=== PATIENT | female | born 1975 | race Caucasian/White ===

== ENCOUNTER → 2020-08-28 | Outpatient (CLI) | payer OTHER ==
--- NOTE | 2020-09-04 13:17 | MM ---
Reason for exam: screening (asymptomatic). Last mammogram was performed 4 years and 9 months ago. History: Patient is postmenopausal. Taking estrogen for 6 years beginning at age 38. Physical Findings: A clinical breast exam by your physician is recommended on an annual basis and results should be correlated with mammographic findings. MG 3D Screening Mammo W/Cad Bilateral CC and MLO view(s) were taken. Prior study comparison: November 19, 2015, mammogram, performed at [place]. The breast tissue is heterogeneously dense. This may lower the sensitivity of mammography. There is chronic nodularity in the right breast and new nodularity may be related to technique. ASSESSMENT: Incomplete: need additional imaging evaluation, BI-RAD 0 RECOMMENDATION: Ultrasound of both breasts. [facility] will attempt to contact patient to return for ultrasound.
== END | disposition home or self-care (01) ==
LOC: RADMAMWWP 10:09
DX: Z12.31 Encounter for screening mammogram for malignant neoplasm of breast (principal); Z78.0 Asymptomatic menopausal state
CPT/HCPCS: 77063; 77067

== ENCOUNTER → 2020-09-25 | Outpatient (CLI) | payer OTHER ==
--- NOTE | 2020-09-25 09:46 | USB ---
Reason for exam: additional evaluation requested from abnormal screening. History: Patient is postmenopausal. Taking estrogen for 6 years beginning at age 38. Physical Findings: Nurse did not find any significant physical abnormalities on exam. US Breast Workup ILA Right complete breast ultrasound includes all four quadrants, the retroareolar region and axilla. Finding demonstrates a 4 x 3 x 3mm oval, cystic lesion at 7 o'clock, a 6 x 4 x 5mm lobular, cystic lesion with septation at 8 o'clock, complex versus cluster of cysts, a 8 x 3 x 5mm lobular, cystic lesion with septation at 9 o'clock, complex versus cluster of cysts and a 4 x 4 x 3mm oval, cystic lesion at 9 o'clock. Left complete breast ultrasound includes all four quadrants, the retroareolar region and axilla. Finding demonstrates a 6 x 4 x 6mm oval, cystic lesion at 3 o'clock. These results were verbally communicated with the patient and result sheet given to the patient on 09/25/20. ASSESSMENT: Probably benign, BI-RAD 3 RECOMMENDATION: Ultrasound and follow-up diagnostic mammogram of both breasts in 6 months. (3D)
== END | disposition home or self-care (01) ==
LOC: RADUSWWP 08:23
PROVIDERS: ATTEND Family Medicine
DX: N60.01 Solitary cyst of right breast (principal); N60.02 Solitary cyst of left breast; Z78.0 Asymptomatic menopausal state

== ENCOUNTER 2020-10-31 16:21 | Observation (INO) | payer OTHER ==
[2020-10-31] MEDS ORDERED: NITROGLYCERIN OINT 1 INCH/GM PACKET TOPICAL STA (16:39)
[2020-10-31] MEDS ORDERED: ASPIRIN 81 MG PO STA (16:39)
--- NOTE | 2020-10-31 16:41 | ED ---
General Adult HPI - General Chief complaint: Recheck/Abnormal Lab/Rx Stated complaint: fast heart rate, high BP Time Seen by Provider: 10/31/20 16:32 Source: patient, RN notes reviewed Mode of arrival: wheelchair Limitations: no limitations - History of Present Illness Initial comments: Patient is a pleasant 45-year-old female presenting to the emergency Department with complaints of chest discomfort and high blood pressure. Onset of symptoms was close to week or 2 ago however more severe the last couple of days. Blood pressure has been as high as 160/110. Patient has had some indigestion or pressure in her chest. No dyspnea, nausea, or diaphoresis. No leg pain or leg swelling. Patient does have history of hypertension. - Related Data Allergies Allergy/AdvReac Type Severity Reaction Status Date / Time Sulfa (Sulfonamide Allergy Rash/Hives Verified 10/31/20 16:22 Antibiotics) Review of Systems ROS Statement: Those systems with pertinent positive or pertinent negative responses have been documented in the HPI. ROS Other: All systems not noted in ROS Statement are negative. Constitutional: Denies: fever Eyes: Denies: eye pain ENT: Denies: ear pain Respiratory: Denies: cough Cardiovascular: Reports: chest pain Endocrine: Denies: fatigue Gastrointestinal: Denies: abdominal pain Genitourinary: Denies: dysuria Musculoskeletal: Denies: back pain Skin: Denies: rash Neurological: Denies: weakness Past Medical History Past Medical History: Hypertension History of Any Multi-Drug Resistant Organisms: None Reported Past Surgical History: Hysterectomy Past Psychological History: Anxiety Smoking Status: Current every day smoker Past Alcohol Use History: None Reported Past Drug Use History: Marijuana General Exam Limitations: no limitations General appearance: alert, in no apparent distress Head exam: Present: normocephalic Eye exam: Present: normal appearance Neck exam: Present: normal inspection Respiratory exam: Present: normal lung sounds bilaterally Cardiovascular Exam: Present: regular rate, normal rhythm Expanded Peripheral pulses: 2+: Radial (R), Radial (L), Dorsalis Pedis (R), Dorsalis Pedis (L) GI/Abdominal exam: Present: soft. Absent: tenderness Extremities exam: Present: normal inspection. Absent: pedal edema, calf tenderness Neurological exam: Present: alert Psychiatric exam: Present: normal affect, normal mood Skin exam: Present: normal color Course Vital Signs 10/31/20 16:22 Temperature 98.4 F Pulse Rate 88 Respiratory 16 Rate Blood Pressure 155/108 O2 Sat by Pulse 99 Oximetry - Reevaluation(s) Reevaluation #1: 10/31/20 17:17 Repeat EKG shows normal sinus rhythm with a rate of 82. CT 150. QRS 74. QT 374. QTC were 36. Normal axis. Normal QRS. No acute ST change. EKG Findings - EKG Comments: EKG Findings:: No sinus rhythm with rate of 85. CT 152. QRS 84. QT 384. QTC 456. Normal axis. Normal QRS. No acute ST change. Medical Decision Making - Medical Decision Making Patient reevaluated and resting comfortably in bed. Patient and family updated on results and plan. [facility] Data Result diagrams: 10/31/20 17:02 10/31/20 17:02 Lab Results 10/31/20 10/31/20 10/31/20 Range/Units 17:02 17:02 17:02 WBC 7.7 (3.8-10.6) k/uL RBC 5.44 H (3.80-5.40) m/uL Hgb 16.4 H (11.4-16.0) gm/dL Hct 45.8 (34.0-46.0) % MCV 84.2 (80.0-100.0) fL MCH 30.2 (25.0-35.0) pg MCHC 35.9 (31.0-37.0) g/dL RDW 12.8 (11.5-15.5) % Plt Count 405 (150-450) k/uL MPV 7.4 Neutrophils % 54 % Lymphocytes % 34 % Monocytes % 6 % Eosinophils % 3 % Basophils % 1 % Neutrophils # 4.2 (1.3-7.7) k/uL Lymphocytes # 2.6 (1.0-4.8) k/uL Monocytes # 0.5 (0-1.0) k/uL Eosinophils # 0.2 (0-0.7) k/uL Basophils # 0.1 (0-0.2) k/uL PT 10.2 (9.0-12.0) sec INR 0.9 (<1.2) APTT 23.4 (22.0-30.0) sec Sodium 139 (137-145) mmol/L Potassium 3.5 (3.5-5.1) mmol/L Chloride 102 (98-107) mmol/L Carbon Dioxide 27 (22-30) mmol/L Anion Gap 10 mmol/L BUN 14 (7-17) mg/dL Creatinine 0.61 (0.52-1.04) mg/dL Est GFR (CKD-EPI)AfAm >90 (>60 ml/min/1.73 sqM) Est GFR (CKD-EPI)NonAf >90 (>60 ml/min/1.73 sqM) Glucose 117 H (74-99) mg/dL Calcium 10.6 H (8.4-10.2) mg/dL Magnesium 1.9 (1.6-2.3) mg/dL Total Bilirubin 0.4 (0.2-1.3) mg/dL AST 42 H (14-36) U/L ALT 25 (4-34) U/L Alkaline Phosphatase 75 (38-126) U/L Troponin I (0.000-0.034) ng/mL Total Protein 8.0 (6.3-8.2) g/dL Albumin 4.8 (3.5-5.0) g/dL 10/31/20 Range/Units 17:02 WBC (3.8-10.6) k/uL RBC (3.80-5.40) m/uL Hgb (11.4-16.0) gm/dL Hct (34.0-46.0) % MCV (80.0-100.0) fL MCH (25.0-35.0) pg MCHC (31.0-37.0) g/dL RDW (11.5-15.5) % Plt Count (150-450) k/uL MPV Neutrophils % % Lymphocytes % % Monocytes % % Eosinophils % % Basophils % % Neutrophils # (1.3-7.7) k/uL Lymphocytes # (1.0-4.8) k/uL Monocytes # (0-1.0) k/uL Eosinophils # (0-0.7) k/uL Basophils # (0-0.2) k/uL PT (9.0-12.0) sec INR (<1.2) APTT (22.0-30.0) sec Sodium (137-145) mmol/L Potassium (3.5-5.1) mmol/L Chloride (98-107) mmol/L Carbon Dioxide (22-30) mmol/L Anion Gap mmol/L BUN (7-17) mg/dL Creatinine (0.52-1.04) mg/dL Est GFR (CKD-EPI)AfAm (>60 ml/min/1.73 sqM) Est GFR (CKD-EPI)NonAf (>60 ml/min/1.73 sqM) Glucose (74-99) mg/dL Calcium (8.4-10.2) mg/dL Magnesium (1.6-2.3) mg/dL Total Bilirubin (0.2-1.3) mg/dL AST (14-36) U/L ALT (4-34) U/L Alkaline Phosphatase (38-126) U/L Troponin I <0.012 (0.000-0.034) ng/mL Total Protein (6.3-8.2) g/dL Albumin (3.5-5.0) g/dL - Radiology Data Radiology results: image reviewed Disposition Clinical Impression: Chest pain Disposition: ADMITTED IP TO THIS HOSP Is patient prescribed a controlled substance at d/c from ED?: No Referrals: [facility] [Primary Care Provider] - 1-2 days Decision Time: 18:06
[2020-10-31 17:18] LABS: Basophils # (A) 0.1 k/uL (0-0.2); Basophils % (A) 1 %; Eosinophils # (A) 0.2 k/uL (0-0.7); Eosinophils % (A) 3 %; HCT 45.8 % (34.0-46.0); HGB 16.4 gm/dL (11.4-16.0); Lymphocytes # (A) 2.6 k/uL (1.0-4.8); Lymphocytes % (A) 34 %; MCH 30.2 pg (25.0-35.0); MCHC 35.9 g/dL (31.0-37.0); MCV 84.2 fL (80.0-100.0); Mean Platelet Volume 7.4; Monocytes # (A) 0.5 k/uL (0-1.0); Monocytes % (A) 6 %; Neutrophils # (A) 4.2 k/uL (1.3-7.7); Neutrophils % (A) 54 %; Platelet Count 405 k/uL (150-450); RBC 5.44 m/uL (3.80-5.40); RDW 12.8 % (11.5-15.5); WBC 7.7 k/uL (3.8-10.6)
[2020-10-31 17:29] LABS: ALT 25 U/L (4-34); AST 42 U/L (14-36); African American GFR (CKD) >90 (>60 ml/min/1.73 sqM); Albumin 4.8 g/dL (3.5-5.0); Alkaline Phosphatase 75 U/L (38-126); Anion Gap 10 mmol/L; Blood Urea Nitrogen 14 mg/dL (7-17); Calcium 10.6 mg/dL (8.4-10.2); Carbon Dioxide 27 mmol/L (22-30); Chloride 102 mmol/L (98-107); Glucose 117 mg/dL (74-99); Magnesium 1.9 mg/dL (1.6-2.3); Non-African American GFR(CKD) >90 (>60 ml/min/1.73 sqM); Potassium 3.5 mmol/L (3.5-5.1); Sodium 139 mmol/L (137-145); Total Bilirubin 0.4 mg/dL (0.2-1.3)
[2020-10-31 17:35] LABS: INR 0.9 (<1.2); Partial Thromboplastin Time 23.4 sec (22.0-30.0); Prothrombin Time 10.2 sec (9.0-12.0)
[2020-10-31] MEDS ORDERED: LORazepam 2 MG/ML INJ IV STA (18:06)
[2020-10-31] MEDS ORDERED: NITROGLYCERIN SL TABS 0.4 MG TAB SUBLINGUAL PRN (18:07)
[2020-10-31] MEDS ORDERED: clonazePAM 1 MG TAB PO PRN (20:39)
--- NOTE | 2020-10-31 20:39 | XR ---
EXAMINATION TYPE: XR chest 2V DATE OF EXAM: 10/31/2020 COMPARISON: None HISTORY: 45-year-old female with chest pain and hypertension TECHNIQUE: PA and lateral views FINDINGS: The cardiomediastinal silhouette, aorta, and pulmonary vasculature are within normal limits. Lungs an d pleural spaces are clear. Bilateral nipple bars. IMPRESSION: No acute cardiopulmonary process.
[2020-10-31] MEDS ORDERED: LORATADINE 10 MG TAB PO SCH (21:00)
[2020-10-31] MEDS ORDERED: VENLAFAXINE HCL ER 75 MG CAP PO SCH (21:00)
[2020-10-31] MEDS: PANTOPRAZOLE 40 MG TABLET PO SCH (21:16)
[2020-11-01] MEDS: NITROGLYCERIN OINT 1 INCH/GM PACKET TOPICAL SCH ×3 (02:36→15:12)
--- NOTE | 2020-11-01 08:12 | P.CRDCN ---
History of Present Illness Consult date: 11/01/20 Requesting physician: Bianca Crawley Reason for Consult (text): Chest Pain, HTN Chief complaint: headache, fingers tingling, chest discomfort, elevated b/p History of present illness: Supposedly 45-year-old female patient with a past history of smoking about half to three quarters of a pack of cigarettes a day, hypertension, hyperlipidemia, gestational diabetes, and medical marijuana use. She also has a significant family history of premature CAD with her mother who at the age of 49 from an NC and her father who had his first NC in his 40s and subsequent CABG. She presented to the emergency department with complaints of recurrent headache, tingling in her fingers and a burning sensation in her chest as well as elevated blood pressure occurring over the past few days. She does have a history of anxiety but does not feel that these episodes feel like her usual panic attacks. She denies alcohol use. She verbalizes following a low sodium diet. She is reasonably active although does not do any formal exercise. She has also been having some palpitations which she typically only has if she takes a decongestant or consumes too much caffeine. She describes these as a skipping heartbeat. They have become more frequent over the last few days. Cardiac enzymes have been negative 3. EKG shows no evidence of ischemia. Chest x-ray showed no acute process. Renal function is normal. She is maintaining sinus mechanism on the monitor. Blood pressure remains elevated. She's been afebrile. Upon examination she is resting comfortably in bed with no current c omplaints. She's not noticed any edema, orthopnea or PND at home. Past Medical History Past Medical History: Hypertension History of Any Multi-Drug Resistant Organisms: None Reported Past Surgical History: Hysterectomy Past Anesthesia/Blood Transfusion Reactions: No Reported Reaction Past Psychological History: Anxiety Smoking Status: Current every day smoker Past Alcohol Use History: None Reported Past Drug Use History: Marijuana Medications and Allergies Home Medications Medication Instructions Recorded Confirmed Type Biotin 10,000 mcg PO DAILY 10/31/20 10/31/20 History Cholecalciferol [Vitamin D3 (25 50 mcg PO DAILY 10/31/20 10/31/20 History Mcg = 1000 Iu)] Estradiol [Estrace] 1 mg PO DAILY 10/31/20 10/31/20 History Loratadine 10 mg PO HS 10/31/20 10/31/20 History Multivitamins, Thera [Multivitamin 1 tab PO DAILY 10/31/20 10/31/20 History (formulary)] [place]-3 Fatty Acids/Fish Oil [Fish 1 cap PO DAILY 10/31/20 10/31/20 History Oil 1,000 mg Softgel] Omeprazole 20 mg PO BID 10/31/20 10/31/20 History Potassium Chloride ER [K-Dur 10] 10 meq PO DAILY 10/31/20 10/31/20 History Venlafaxine HCl ER [Effexor Xr] 75 mg PO HS 10/31/20 10/31/20 History hydroCHLOROthiazide [Hydrodiuril] 50 mg PO DAILY 10/31/20 10/31/20 History Allergies Allergy/AdvReac Type Severity Reaction Status Date / Time Sulfa (Sulfonamide Allergy Rash/Hives Verified 10/31/20 19:32 Antibiotics) Physical Exam Vitals: Vital Signs Temp Pulse Pulse Resp BP BP Pulse Ox 11/01/20 02:00 98.0 F 78 18 148/81 100 10/31/20 20:00 98.4 F 95 17 155/83 96 10/31/20 18:37 79 18 157/98 99 10/31/20 18:07 99 10/31/20 16:22 98.4 F 88 16 155/108 99 Intake and Output 10/31/20 11/01/20 11/01/20 22:59 06:59 14:59 Other: # Voids 1 1 Weight 72.575 kg PHYSICAL EXAMINATION: This is a 45-year-old female in no apparent distress at the time of my examination. VITAL SIGNS: Blood pressure 151/81, heart rate 84, respirations 16, temp 98.1F. Patient is 99 % on room air. HEENT: Head is atraumatic, normocephalic. Pupils are equal, round. Sclerae anicteric. Conjunctivae are clear. Mucous membranes of the mouth are moist. Neck is supple. There is no elevated jugular venous pressure. No carotid bruit is heard. CHEST EXAMINATION: Clear to auscultation bilaterally. No wheezes rales or rhonchi. Respirations even and nonlabored. HEART EXAMINATION: Heart regular, positive S1 and S2. No S3. No S4. No clicks, rubs or murmurs. ABDOMEN: Soft, nontender. Bowel sounds are heard. No organomegaly noted. EXTREMITIES: 2+ peripheral pulses with no evidence of peripheral edema and no calf tenderness noted. NEUROLOGIC EXAMINATION: Patient is awake, alert and oriented x3. Results 10/31/20 17:02 10/31/20 17:02 Cardiac Enzymes 10/31/20 10/31/20 10/31/20 Range/Units 17:02 17:02 20:18 AST 42 H (14-36) U/L Troponin I <0.012 <0.012 (0.000-0.034) ng/mL 10/31/20 Range/Units 22:45 AST (14-36) U/L Troponin I <0.012 (0.000-0.034) ng/mL Coagulation 10/31/20 Range/Units 17:02 PT 10.2 (9.0-12.0) sec APTT 23.4 (22.0-30.0) sec CBC 10/31/20 Range/Units 17:02 WBC 7.7 (3.8-10.6) k/uL RBC 5.44 H (3.80-5.40) m/uL Hgb 16.4 H (11.4-16.0) gm/dL Hct 45.8 (34.0-46.0) % Plt Count 405 (150-450) k/uL Comprehensive Metabolic Panel 10/31/20 Range/Units 17:02 Sodium 139 (137-145) mmol/L Potassium 3.5 (3.5-5.1) mmol/L Chloride 102 (98-107) mmol/L Carbon Dioxide 27 (22-30) mmol/L BUN 14 (7-17) mg/dL Creatinine 0.61 (0.52-1.04) mg/dL Glucose 117 H (74-99) mg/dL Calcium 10.6 H (8.4-10.2) mg/dL AST 42 H (14-36) U/L ALT 25 (4-34) U/L Alkaline Phosphatase 75 (38-126) U/L Total Protein 8.0 (6.3-8.2) g/dL Albumin 4.8 (3.5-5.0) g/dL Current Medications Generic Name Dose Route Start Last Admin Trade Name Freq PRN Reason Stop Dose Admin Aspirin 325 mg 07/03/21 09:00 Aspirin 325 Mg Tab PO DAILY JUAN M Cholecalciferol 50 mcg 11/01/20 09:00 Cholecalciferol 25 Mcg (1000 Iu) Tablet PO DAILY JUAN M Clonazepam 1 mg 10/31/20 20:39 10/31/20 21:14 Clonazepam 1 Mg Tab PO 1 mg TID PRN Administration Agitation or Acute Anxiety Estradiol 1 mg 11/01/20 09:00 Estradiol 0.5 Mg Tab PO DAILY JUAN M Hydrochlorothiazide 50 mg 11/01/20 09:00 Hydrochlorothiazide 50 Mg Tab PO DAILY JUAN M Loratadine 10 mg 10/31/20 21:00 10/31/20 21:14 Loratadine 10 Mg Tab PO 10 mg HS JUAN M Administration Multivitamins 1 each 11/01/20 09:00 Multivitamins, Thera 1 Each Tab PO DAILY JUAN M Nitroglycerin 0.4 mg 10/31/20 18:07 Nitroglycerin Sl Tabs 0.4 Mg Tab SUBLINGUAL Q5M PRN Chest Pain Nitroglycerin 1 inch 11/01/20 00:00 11/01/20 05:22 Nitroglycerin Oint 1 Inch/Gm Packet TOPICAL Not Given Q6HR JUAN M Pantoprazole Sodium 40 mg 10/31/20 21:00 10/31/20 21:16 Pantoprazole 40 Mg Tablet PO 40 mg AC-BID JUAN M Administration Potassium Chloride 10 meq 11/01/20 09:00 Potassium Chloride Er 10 Meq Tab.Er.Prt PO DAILY JUAN M Venlafaxine HCl 75 mg 10/31/20 21:00 10/31/20 21:14 Venlafaxine Hcl Er 75 Mg Cap PO 75 mg HS JUAN M Administration Intake and Output 10/31/20 11/01/20 11/01/20 22:59 06:59 14:59 Other: # Voids 1 1 Weight 72.575 kg 10/31/20 17:02 10/31/20 17:02 EKG Interpretations (text) Sinus rhythm Assessment and Plan Assessment: #1 symptoms of recurrent chest discomfort, an acute coronary event has been ruled out, troponins negative 3, EKG shows no evidence of ischemia. #2 hypertension, uncontrolled #3 nicotine dependence #4 gestational diabetes #5 hyperlipidemia, not currently on medications, this is being monitored by her PCP #5 marijuana use Plan: From cardiology's perspective and acute coronary event has been ruled out. We will obtain a 2-D echo with Doppler to assess cardiac structure and function. We will add metoprolol 25 mg by mouth twice a day. Discussed importance of smoking cessation. If there is no evidence of significant valvular abnormalitie s or segmental wall motion abnormalities patient may be discharged home and follow-up with an outpatient stress echo and office visit. [employer] note has been reviewed, I agree with a documented findings and plan of care. Patient was seen and examined.
[2020-11-01] MEDS: PANTOPRAZOLE 40 MG TABLET PO SCH (08:21)
[2020-11-01] MEDS ORDERED: MULTIVITAMINS, THERA 1 EACH TAB PO SCH (09:00)
[2020-11-01] MEDS ORDERED: NON FORMULARY DRUG (Biotin [Biotin] 10,000 MCG Capsule) PO SCH (09:00)
[2020-11-01] MEDS ORDERED: METOPROLOL TARTRATE 25 MG TAB PO SCH (09:00)
[2020-11-01] MEDS ORDERED: NON FORMULARY DRUG (Omega-3 Fatty Acids/Fish Oil [Fish Oil 1,000 Mg Softgel] 1 EACH Capsul PO SCH (09:00)
[2020-11-01] MEDS ORDERED: ASPIRIN 325 MG TAB PO SCH (09:00)
[2020-11-01] MEDS ORDERED: POTASSIUM CHLORIDE ER 10 MEQ TAB.ER.PRT PO SCH (09:00)
[2020-11-01] MEDS ORDERED: CHOLECALCIFEROL 25 MCG (1000 IU) TABLET PO SCH (09:00)
[2020-11-01 10:20] LABS: Chol/HDL Ratio 3.24; LDL Cholesterol,Calculated 171.6 mg/dL (0.0-131.0); VLDL Calculation 21.4 mg/dL (5.00-40.00)
--- NOTE | 2020-11-01 12:11 | ECHOF ---
Referral Reason:chest pain, HTN MEASUREMENTS -------- HEIGHT: 157.5 cm WEIGHT: 72.6 kg BP: 151/81 RVIDd: 2.6 cm (< 3.3) IVSd: 1.0 cm (0.6 - 1.1) LVIDd: 3.9 cm (3.9 - 5.3) LVPWd: 0.9 cm (0.6 - 1.1) IVSs: 1.4 cm LVIDs: 2.4 cm LVPWs: 1.3 cm LA Diam: 2.8 cm (2.7 - 3.8) LAESV Index (A-L): 15.81 ml/m Ao Diam: 2.8 cm (2.0 - 3.7) AV Cusp: 1.9 cm (1.5 - 2.6) MV EXCURSION: 18.612 mm (> 18.000) MV EF SLOPE: 77 mm/s (70 - 150) EPSS: 0.3 cm MV E Tashi: 0.78 m/s MV DecT: 191 ms MV A Tashi: 0.66 m/s MV E/A Ratio: 1.18 FINDINGS -------- Sinus rhythm. This was a technically good study. The left ventricular size is normal. Left ventricular wall thickness is normal. Overall left vent ricular systolic function is normal with, an EF between 55 - 60 %. The diastolic filling pattern is normal for the age of the patient 8.35. The right ventricle is normal in size. Normal LA size by volume 22+/-6 ml/m2. The right atrial size is normal. Interatrial and interventricular septum intact. The aortic valve is trileaflet, and appears structurally normal. No aortic stenosis or regurgitation. The mitral valve is normal. There is trace mitral regurgitation. The tricuspid valve appears structurally normal. Trace tricuspid regurgitation present. Unable to estimate RVSP due to inadequate TR jet spectral doppler profile. There is no pulmonic regurgitation present. The aortic root size is normal. Normal inferior vena cava with normal inspiratory collapse consistent with estimated right atrial pre ssure of 5 mmHg. There is no pericardial effusion. CONCLUSIONS -------- 1. Left ventricular wall thickness is normal. 2. Overall left ventricular systolic function is normal with, an EF between 55 - 60 %. 3. Normal LA size by volume 22+/-6 ml/m2. 4. The aortic valve is trileaflet, and appears structurally normal. No aortic stenosis or regurgitati on. 5. There is trace mitral regurgitation. 6. Trace tricuspid regurgitation present. 7. There is no pericardial effusion. STERILIZATION TECH: Mandy Pa RDCS
[2020-11-01 14:51] VITALS: BP 143/82; PULSE 82; RESP 16; TEMP 97.8
--- NOTE | 2020-11-01 15:01 | P.HPIM ---
History of Present Illness H&P Date: 11/01/20 Chief Complaint: Chest discomfort, palpitations, increased blood pressure Ms. Taylor is a 44-year-old female with a past medical history of hypertension, dyslipidemia, gestational diabetes and medical marijuana coming in with a chief complaint of right-sided chest discomfort and palpitations and increased blood pressure. Patient states that she was in her yard picking up weeds yesterday and she started to have some chest discomfort, which is mostly on the right side of the chest. Then she checked her blood pressure which was found to be high at 1 60 x 1 10 and she was worried about it and came into the hospital for further evaluation. Patient denied having any difficulty in breathing, nausea or associated diaphoresis with this chest pain. She denied having any orthopnea PND or lower extremity swelling. She mentions about having a weird feeling in her upper extremities and lower extremities and her blood pressure was high. Patient denied having any loss of consciousness. She denied having any weakness of her extremities, no speech abnormalities, no blurring of her vision or headaches. Patient has history of anxiety and does feel that these episodes are like her panic attacks. She states that she took her blood pressure medications. Patient has significant history of smoking about half to three quarters of pack of cigarettes a day. She also has family history of coronary artery disease, mother at age of 49 from [place] and father had first [place] in his 40s and subsequently had coronary artery bypass grafting. In the ER, at the time of admission her blood pressure was 155/108, heart rate 88, respiratory rate 16, saturating 99%, temperature 98.4. She had an EKG done showing normal sinus rhythm with 82 bpm. She had labs done showing white count of 7.7, hemoglobin 16.4, platelets 405. Sodium 139, potassium 3.5, chloride 102, bicarbonate 27, creatinine 14, creatinine 0.61. Calcium 10.6, AST 42, ALT 25. Troponin less than 0.0123. LDL 171. HDL of 86. Total cholesterol 279. Chest x-ray showing no acute cardiopulmonary process. Review of Systems REVIEW OF SYSTEMS: CONSTITUTIONAL: No fever, no malaise, no fatigue. HEENT: No recent visual problems or hearing problems. Denied any sore throat. CARDIOVASCULAR: As per HPI PULMONARY: No shortness of breath, no cough, no hemoptysis. GASTROINTESTINAL: No diarrhea, no nausea, no vomiting, no abdominal pain. NEUROLOGICAL: No headaches, no weakness, no numbness. HEMATOLOGICAL: Denies any bleeding or petechiae. GENITOURINARY: Denies any burning micturition, frequency, or urgency. MUSCULOSKELETAL/RHEUMATOLOGICAL: Denies any joint pain, swelling, or any muscle pain. ENDOCRINE: Denies any polyuria or polydipsia. The rest of the 14-point review of systems is negative. Past Medical History Past Medical History: Hypertension History of Any Multi-Drug Resistant Organisms: None Reported Past Surgical History: Hysterectomy Past Anesthesia/Blood Transfusion Reactions: No Reported Reaction Past Psychological History: Anxiety Smoking Status: Current every day smoker Past Alcohol Use History: None Reported Past Drug Use History: Marijuana Medications and Allergies Home Medications Medication Instructions Recorded Confirmed Type Biotin 10,000 mcg PO DAILY 10/31/20 10/31/20 History Cholecalciferol [Vitamin D3 (25 50 mcg PO DAILY 10/31/20 10/31/20 History Mcg = 1000 Iu)] Estradiol [Estrace] 1 mg PO DAILY 10/31/20 10/31/20 History Loratadine 10 mg PO HS 10/31/20 10/31/20 History Multivitamins, Thera [Multivitamin 1 tab PO DAILY 10/31/20 10/31/20 History (formulary)] [place]-3 Fatty Acids/Fish Oil [Fish 1 cap PO DAILY 10/31/20 10/31/20 History Oil 1,000 mg Softgel] Omeprazole 20 mg PO BID 10/31/20 10/31/20 History Potassium Chloride ER [K-Dur 10] 10 meq PO DAILY 10/31/20 10/31/20 History Venlafaxine HCl ER [Effexor Xr] 75 mg PO HS 10/31/20 10/31/20 History hydroCHLOROthiazide [Hydrodiuril] 50 mg PO DAILY 10/31/20 10/31/20 History Allergies Allergy/AdvReac Type Severity Reaction Status Date / Time Sulfa (Sulfonamide Allergy Rash/Hives Verified 10/31/20 19:32 Antibiotics) Physical Exam Vitals: Vital Signs Temp Pulse Pulse Resp BP BP Pulse Ox 11/01/20 08:00 18 11/01/20 07:00 98.1 F 84 16 151/81 99 11/01/20 02:00 98.0 F 78 18 148/81 100 10/31/20 20:00 98.4 F 95 17 155/83 96 10/31/20 18:37 79 18 157/98 99 10/31/20 18:07 99 10/31/20 16:22 98.4 F 88 16 155/108 99 Intake and Output 10/31/20 11/01/20 11/01/20 22:59 06:59 14:59 Other: # Voids 1 1 Weight 72.575 kg PHYSICAL EXAMINATION: GENERAL: The patient is alert and oriented x3, not in any acute distress. Well developed, well nourished. HEENT: Pupils are round and equally reacting to light. EOMI. No scleral icterus. No conjunctival pallor. Normocephalic, atraumatic. No pharyngeal erythema. No thyromegaly. CARDIOVASCULAR: S1 and S2 present. No murmurs, rubs, or gallops. PULMONARY: Chest is clear to auscultation, no wheezing or crackles. ABDOMEN: Soft, nontender, nondistended, normoactive bowel sounds. No palpable organomegaly. MUSCULOSKELETAL: No joint swelling or deformity. EXTREMITIES: No cyanosis, clubbing, or pedal edema. NEUROLOGICAL: Gross neurological examination did not reveal any focal deficits. SKIN:No rash Results CBC & Chem 7: 10/31/20 17:02 10/31/20 17:02 Labs: Abnormal Lab Results - Last 24 Hours (Table) 10/31/20 10/31/20 10/31/20 Range/Units 17:02 17:02 17:02 RBC 5.44 H (3.80-5.40) m/uL Hgb 16.4 H (11.4-16.0) gm/dL Glucose 117 H (74-99) mg/dL Calcium 10.6 H (8.4-10.2) mg/dL AST 42 H (14-36) U/L Cholesterol 279 H (0-200) mg/dL LDL Cholesterol, Calc 171.6 H (0.0-131.0) mg/dL HDL Cholesterol 86.0 H (40.0-60.0) mg/dL Thrombosis Risk Factor Assmnt - Choose All That Apply Each Factor Represents 1 point: Age 41-60 years Other Risk Factors: No Other congenital or acquired thrombophilia - If yes, enter type in comment: No Thrombosis Risk Factor Assessment Total Risk Factor Score: 1 Thrombosis Risk Factor Assessment Level: Low Risk Assessment and Plan Assessment: ASSESSMENT Hypertensive urgency Atypical chest pain Nicotine dependence Hyperlipidemia Gestational diabetes Medical marijuana use PLAN: Patient had serial troponins and EKGs that are within normal limits. Delia ent had a 2-D echo showing ejection fraction of 55-60%. She has been started on metoprolol 25 mg twice a day by cardiology, her heart rate and blood pressures seem to be under better control. Patient has been restarted on her home medications which will be continued. Further recommendations to follow depending on the progress of the patient.
== END 2020-11-01 18:03 | disposition home or self-care (01) ==
LOC: EC 16:21 → 6NMEDSUR 18:07
PROVIDERS: ADMIT Internal Medicine; ATTEND Internal Medicine
DX: I16.0 Hypertensive urgency (principal); R07.89 Other chest pain; F17.210 Nicotine dependence, cigarettes, uncomplicated; I10 Essential (primary) hypertension; E78.5 Hyperlipidemia, unspecified; R00.2 Palpitations; R20.2 Paresthesia of skin; R51.9 Headache, unspecified; K30 Functional dyspepsia; F12.90 Cannabis use, unspecified, uncomplicated; F41.0 Panic disorder [episodic paroxysmal anxiety]; Z86.32 Personal history of gestational diabetes; Z90.710 Acquired absence of both cervix and uterus; Z79.899 Other long term (current) drug therapy; Z79.890 Hormone replacement therapy; Z88.2 Allergy status to sulfonamides; Z82.49 Family history of ischemic heart disease and other diseases of the circulatory system
CPT/HCPCS: 96374; 99285; 36415; 93005; 93306; 80061; 80053; 83735; 84484; 85025; 85610; 85730; 71046; G0378 ×2; J2060

== ENCOUNTER 2020-11-05 02:38 | Observation (INO) | payer OTHER ==
[2020-11-05] MEDS ORDERED: SODIUM CHLORIDE 0.9% 1,000 ML IV STA (03:10)
[2020-11-05] MEDS ORDERED: LORazepam 2 MG/ML INJ IV STA (03:11)
[2020-11-05] MEDS ORDERED: ONDANSETRON 4 MG/2 ML VIAL IVP STA (03:11)
--- NOTE | 2020-11-05 03:12 | ED ---
Chest Pain HPI - General Chief Complaint: Arrhythmia/Palpitations Stated Complaint: Hypertension Time Seen by Provider: 11/05/20 02:52 Source: patient, EMS, RN notes reviewed, old records reviewed Mode of arrival: EMS Limitations: no limitations - History of Present Illness Initial Comments: This is a 45-year-old female DF for evaluation. Patient has a for evaluation of palpitations and chest pain patient having hypertension and anxiety. Patient was just in the emergency department for evaluation, admitted for cardiac observation. Patient states she's been home and has had persistent chest pain not feeling well, patient has history of strong family history of heart disease, very anxious MD Complaint: chest pain -: hour(s) Onset: during rest Pain Location: substernal Pain Radiation: none Severity: mild Severity scale (1-10): 2 Quality: aching Consistency: constant Improves With: nothing Worsens With: nothing Anginal Symptoms: dyspnea, sense of impending doom Other Symptoms: palpitations Treatments Prior to Arrival: none - Related Data Home Medications Medication Instructions Recorded Confirmed Biotin 10,000 mcg PO DAILY 10/31/20 11/05/20 Cholecalciferol [Vitamin D3 (25 50 mcg PO DAILY 10/31/20 11/05/20 Mcg = 1000 Iu)] Estradiol [Estrace] 1 mg PO DAILY 10/31/20 11/05/20 Loratadine 10 mg PO HS 10/31/20 11/05/20 Multivitamins, Thera [Multivitamin 1 tab PO DAILY 10/31/20 11/05/20 (formulary)] [place]-3 Fatty Acids/Fish Oil [Fish 1 cap PO DAILY 10/31/20 11/05/20 Oil 1,000 mg Softgel] Omeprazole 20 mg PO BID 10/31/20 11/05/20 Potassium Chloride ER [K-Dur 10] 10 meq PO DAILY 10/31/20 11/05/20 Venlafaxine HCl ER [Effexor XR] 75 mg PO HS 10/31/20 11/05/20 Previous Rx's Medication Instructions Recorded Metoprolol Tartrate [Lopressor] 25 mg PO BID 30 Days #60 tab 11/01/20 Losartan [Cozaar] 25 mg PO DAILY 30 Days #30 tab 11/06/20 Allergies Allergy/AdvReac Type Severity Reaction Status Date / Time Sulfa (Sulfonamide Allergy Rash/Hives Verified 11/05/20 07:02 Antibiotics) Review of Systems ROS Statement: Those systems with pertinent positive or pertinent negative responses have been documented in the HPI. ROS Other: All systems not noted in ROS Statement are negative. EKG Findings - EKG Comments: EKG Findings:: EKG shows sinus rhythm 84, [place] 136 QRS 74 QTc 4:30 Past Medical History Past Medical History: Hypertension Additional Past Medical History / Comment(s): ovarian cysts, kidney stones, History of Any Multi-Drug Resistant Organisms: None Reported Past Surgical History: Hysterectomy Past Anesthesia/Blood Transfusion Reactions: No Reported Reaction Past Psychological History: Anxiety Smoking Status: Current every day smoker Past Alcohol Use History: Rare Past Drug Use History: Marijuana General Exam Limitations: no limitations General appearance: alert, in no apparent distress, anxious Head exam: Present: atraumatic, normocephalic, normal inspection Eye exam: Present: normal appearance, PERRL, EOMI. Absent: scleral icterus, conjunctival injection, periorbital swelling ENT exam: Present: normal exam, mucous membranes moist Neck exam: Present: normal inspection. Absent: tenderness, meningismus, lymphadenopathy Respiratory exam: Present: normal lung sounds bilaterally. Absent: respiratory distress, wheezes, rales, rhonchi, stridor Cardiovascular Exam: Present: regular rate, normal rhythm, normal heart sounds. Absent: systolic murmur, diastolic murmur, rubs, gallop, clicks GI/Abdominal exam: Present: soft, normal bowel sounds. Absent: distended, tenderness, guarding, rebound, rigid Extremities exam: Present: normal inspection, full ROM, normal capillary refill. Absent: tenderness, pedal edema, joint swelling, calf tenderness Back exam: Present: normal inspection Neurological exam: Present: alert, oriented X3, CN II-XII intact Psychiatric exam: Present: normal affect, normal mood Skin exam: Present: warm, dry, intact, normal color. Absent: rash Course Vital Signs 11/05/20 11/05/20 11/05/20 02:39 02:47 04:45 Temperature 98 F Pulse Rate 78 78 Respiratory 16 16 Rate Blood Pressure 167/87 140/88 O2 Sat by Pulse 99 98 Oximetry 11/05/20 11/05/20 11/05/20 08:06 09:35 11:26 Temperature 98.0 F Pulse Rate 64 60 91 Respiratory 16 16 18 Rate Blood Pressure 123/78 139/79 149/84 O2 Sat by Pulse 99 99 96 Oximetry - Reevaluation(s) Reevaluation #1: Medical record is reviewed Patient symptoms are improved here in the ER Patient is in no acute distress Patient informed results and questions answered Patient does not fill comfortable with discharge will admit for cardiac observation Chest Pain MDM - MDM 45 female presents to the ER today here with chest pain chest pain shortness with a palpitations. Dr. humphrey here in the ER. Patient be admitted for card iology evaluation Disposition Clinical Impression: Chest pain, Palpitations Disposition: ADMITTED IP TO THIS HOSP Condition: Good Is patient prescribed a controlled substance at d/c from ED?: No
[2020-11-05 03:39] LABS: Basophils # (A) 0.1 k/uL (0-0.2); Basophils % (A) 1 %; Eosinophils # (A) 0.1 k/uL (0-0.7); Eosinophils % (A) 1 %; HCT 45.5 % (34.0-46.0); HGB 16.3 gm/dL (11.4-16.0); Hyperchromasia Slight; Lymphocytes % (A) 30 %; MCH 29.6 pg (25.0-35.0); MCHC 35.7 g/dL (31.0-37.0); MCV 82.8 fL (80.0-100.0); Mean Platelet Volume 7.4; Monocytes # (A) 0.7 k/uL (0-1.0); Monocytes % (A) 7 %; Neutrophils # (A) 6.1 k/uL (1.3-7.7); Neutrophils % (A) 60 %; Platelet Count 426 k/uL (150-450); RDW 12.6 % (11.5-15.5); WBC 10.1 k/uL (3.8-10.6)
[2020-11-05] MEDS ORDERED: ASPIRIN 81 MG PO STA (03:42)
[2020-11-05] MEDS ORDERED: NITROGLYCERIN SL TABS 0.4 MG TAB SUBLINGUAL PRN (03:42)
[2020-11-05] MEDS ORDERED: HEPARIN SODIUM 1,000 UN/ML (10ML VL) IV ONE (03:42)
[2020-11-05 03:51] LABS: ALT 16 U/L (4-34); AST 31 U/L (14-36); African American GFR (CKD) >90 (>60 ml/min/1.73 sqM); Albumin 4.9 g/dL (3.5-5.0); Alkaline Phosphatase 65 U/L (38-126); Anion Gap 13 mmol/L; Blood Urea Nitrogen 14 mg/dL (7-17); Calcium 10.1 mg/dL (8.4-10.2); Carbon Dioxide 25 mmol/L (22-30); Chloride 99 mmol/L (98-107); Creatine Kinase 52 U/L (30-135); Glucose 118 mg/dL (74-99); Magnesium 1.9 mg/dL (1.6-2.3); Non-African American GFR(CKD) >90 (>60 ml/min/1.73 sqM); Phosphorus 2.7 mg/dL (2.5-4.5); Potassium 3.1 mmol/L (3.5-5.1); Sodium 137 mmol/L (137-145); Total Bilirubin 0.8 mg/dL (0.2-1.3); Total Protein 7.7 g/dL (6.3-8.2)
[2020-11-05 04:08] LABS: Partial Thromboplastin Time 23.2 sec (22.0-30.0); Prothrombin Time 10.9 sec (9.0-12.0)
[2020-11-05] MEDS ORDERED: Potassium Replacement Protocol 1 EACH MISC MISCELLANE PRN (09:09)
[2020-11-05] MEDS: POTASSIUM CHLORIDE ER 20 MEQ TAB.ER PO SCH ×2 (09:32→11:27)
--- NOTE | 2020-11-05 11:17 | P.CRDCN ---
History of Present Illness History of present illness: HISTORY OF PRESENTING ILLNESS This is a pleasant 45-year-old female past medical history significant for hypertension, chronic nicotine dependence, hyperlipidemia, gestational diabetes, marijuana use. She also has a significant family history of premature CAD with her mother who at the age of 49 from an [place] and her father who had his first [place] in his 40s and subsequent CABG. She does not follow with a medical claims analyst. We have been asked to see in consultation for chest pain. Patient is seen and examined in the emergency department. She was recently admitted on 11/01/2020 with similar complaints. She endorses since being discharged on Tuesday morning she states that she went "cold turkey" on using edible marijuana, tobacco use, and smoking marijuana. Over the past couple days she has been having symptoms of burning chest pain, nausea, vomiting, headache, lightheadedness, dizziness, shortness of breath, feeling that she might faint, also feeling sweaty and dizzy. She also states that her blood pressure has been elevated. She states that her highest blood pressure at home was 170/101. She does state that she was recently started on hydrochlorothiazide and metoprolol tartrate. She states she took her blood pressure 6-7 times yesterday because she was very worried of it being elevated. In terms of her chest pain, it is epigastric and midsternal. She describes it as a burning. She describes is similar to her acid reflux. It is nonradiating, nonexertional, she was no associated symptoms with her chest pain. She is no aggravating or alleviating factors. 11/01/2020 Patient underwent Echocardiogram revealed EF 55-60%, trace mitral regurgitation, trace tricuspid regurgitation. She was started on metoprolol tartrate 25mg BID, she was stable and discharged home. DIAGNOSTICS EKG reveals sinus rhythm, rate 84, no evidence of ischemia. prior EKG [facility] findings Telemetry tracings indicate sinus mechanism Laboratory reviewed, troponin negative 3, proBNP 23, sodium 137, potassium 4.1, BUN 14, serum creatinine 0.70, magnesium 1.9. REVIEW OF SYSTEMS At the time of my exam: CONSTITUTIONAL: Denies fever or chills. CARDIOVASCULAR: Positive burning chest pain, positive shortness of breath Denies , orthopnea, PND or palpitations. RESPIRATORY: Denies cough. GASTROINTESTINAL: Positive epigastric pain, nausea and vomiting Denies diarrhea, constipation MUSCULOSKELETAL: Denies myalgias. NEUROLOGIC: Positive lightheadedness positive dizziness Denies numbness, tingling, headacbe or weakness. ENDOCRINE: Denies fatigue, weight change, polydipsia or polyurina. GENITOURINARY: Denies burning, hematuria or urgency with micturation. HEMATOLOGIC: Denies history of anemia or bleeding. PHYSICAL EXAMINATION Blood pressure 123/78 heart rate 60 afebrile and maintaining oxygen saturation 99% on room air CONSTITUTIONAL: No apparent distress. HEENT: Head is normocephalic. Pupils are equal, round. Sclerae anicteric. Mucous membranes of the mouth are moist. No JVD. No carotid bruit. CHEST EXAMINATION: Lungs are clear to auscultation. No chest wall tenderness is noted on palpation or with deep breathing. HEART EXAMINATION: Regular rate and rhythm. S1, S2 heard. No murmurs, gallops or rub. ABDOMEN: Soft, nontender. Positive bowel sounds. EXTREMITIES: 2+ peripheral pulses, no lower extremity edema and no calf tenderness. SKIN: intact NEUROLOGIC EXAMINATION: Patient is awake, alert and oriented x3. ASSESSMENT Chest pain, atypical, acute coronary syndrome is ruled out Hypertension Chronic nicotine dependence Gestational diabetes Hyperlipidemia, not on medications, being monitored by PCP Marijuana use Hypokalemia PLAN An acute coronary event has been ruled out with no EKG evidence of ischemia and negative cardiac enzymes. Replace potassium Discontinue hydrochlorothiazide Start Losartan 25mg daily Hold metoprolol for stress test at this time. No need for repeat echocardiogram Perform stress echo test to assess for stress induced cardiac ischemia. If stress test is normal, ok to discharge from a cardiology perspective, and [facility] outpatient. Thank you kindly for this consultation. Nurse Practitioner note has been reviewed, I agree with a documented findings and plan of care. Patient was seen and examined. Past Medical History Past Medical History: Hypertension Additional Past Medical History / Comment(s): ovarian cysts, kidney stones, History of Any Multi-Drug Resistant Organisms: None Reported Past Surgical History: Hysterectomy Past Anesthesia/Blood Transfusion Reactions: No Reported Reaction Past Psychological History: Anxiety Smoking Status: Current every day smoker Past Alcohol Use History: Rare Past Drug Use History: Marijuana Medications and Allergies Home Medications Medication Instructions Recorded Confirmed Type Biotin 10,000 mcg PO DAILY 10/31/20 11/05/20 History Cholecalciferol [Vitamin D3 (25 50 mcg PO DAILY 10/31/20 11/05/20 History Mcg = 1000 Iu)] Estradiol [Estrace] 1 mg PO DAILY 10/31/20 11/05/20 History Loratadine 10 mg PO HS 10/31/20 11/05/20 History Multivitamins, Thera [Multivitamin 1 tab PO DAILY 10/31/20 11/05/20 History (formulary)] [place]-3 Fatty Acids/Fish Oil [Fish 1 cap PO DAILY 10/31/20 11/05/20 History Oil 1,000 mg Softgel] Omeprazole 20 mg PO BID 10/31/20 11/05/20 History Potassium Chloride ER [K-Dur 10] 10 meq PO DAILY 10/31/20 11/05/20 History Venlafaxine HCl ER [Effexor XR] 75 mg PO HS 10/31/20 11/05/20 History Metoprolol Tartrate [Lopressor] 25 mg PO BID 30 Days #60 tab 11/01/20 11/05/20 Rx Allergies Allergy/AdvReac Type Severity Reaction Status Date / Time Sulfa (Sulfonamide Allergy Rash/Hives Verified 11/05/20 07:02 Antibiotics) Physical Exam Vitals: Vital Signs Temp Pulse Resp BP Pulse Ox 11/05/20 04:45 78 16 140/88 98 11/05/20 02:47 98 F 11/05/20 02:39 78 16 167/87 99 Intake and Output 11/04/20 11/05/20 11/05/20 22:59 06:59 14:59 Other: Weight 68.039 kg Results 11/05/20 02:46 11/05/20 02:46 Cardiac Enzymes 11/05/20 11/05/20 11/05/20 Range/Units 02:46 02:46 05:39 AST 31 (14-36) U/L Troponin I <0.012 <0.012 (0.000-0.034) ng/mL Coagulation 11/05/20 Range/Units 02:46 PT 10.9 (9.0-12.0) sec APTT 23.2 (22.0-30.0) sec CBC 11/05/20 Range/Units 02:46 WBC 10.1 (3.8-10.6) k/uL RBC 5.50 H (3.80-5.40) m/uL Hgb 16.3 H (11.4-16.0) gm/dL Hct 45.5 (34.0-46.0) % Plt Count 426 (150-450) k/uL Comprehensive Metabolic Panel 11/05/20 Range/Units 02:46 Sodium 137 (137-145) mmol/L Potassium 3.1 L (3.5-5.1) mmol/L Chloride 99 (98-107) mmol/L Carbon Dioxide 25 (22-30) mmol/L BUN 14 (7-17) mg/dL Creatinine 0.70 (0.52-1.04) mg/dL Glucose 118 H (74-99) mg/dL Calcium 10.1 (8.4-10.2) mg/dL AST 31 (14-36) U/L ALT 16 (4-34) U/L Alkaline Phosphatase 65 (38-126) U/L Total Protein 7.7 (6.3-8.2) g/dL Albumin 4.9 (3.5-5.0) g/dL Current Medications Generic Name Dose Route Start Last Admin Trade Name Freq PRN Reason Stop Dose Admin Aspirin 325 mg 11/06/20 09:00 Aspirin 325 Mg Tab PO DAILY JUAN M Sodium Chloride 1,000 mls @ 130 mls/hr 11/05/20 03:10 11/05/20 03:18 Saline 0.9% IV 11/05/20 10:51 130 mls/hr .[id number] STA Administration Nitroglycerin 0.4 mg 11/05/20 03:42 Nitroglycerin Sl Tabs 0.4 Mg Tab SUBLINGUAL Q5M PRN Chest Pain Intake and Output 11/04/20 11/05/20 11/05/20 22:59 06:59 14:59 Other: Weight 68.039 kg 11/05/20 02:46 11/05/20 02:46
[2020-11-05] MEDS: LOSARTAN 25 MG TAB PO SCH (11:27)
--- NOTE | 2020-11-05 15:28 | ECHOS ---
STRESS ECHOCARDIOGRAM DATE: 11/05/20 LUMASON: [place] INDICATIONS: Chest pain MEDICATIONS: BASELINE HEART RATE: 80 BASELINE BLOOD PRESSURE: 142/74 MAXIMUM HEART RATE: 158 MAXIMUM BLOOD PRESSURE: 186/63 85% MPHR: 149 100% MPHR: 175 METS: 11.1 MAXIMUM STAGE REACHED: 4 TOTAL EXERCISE TIME: 9:45 CLINICAL INFORMATION: Baseline EKG revealed normal sinus rhythm without significant ST changes. Patient walked on standard Joseph protocol for 9 minute 45 seconds achieved a maximal heart rate of 158 beats per minute, developed fatigue, shortness of breath but did not have angina or arrhythmia. EKG did not reveal any ST-segment changes to indicate ischemia. By EKG criteria, this is a negative stress test with good exercise capacity. Baseline echo images revealed normal wall motion wall thickening of all segments. At peak exercise there was good augmentation of left and wall motion wall thickening of all segments suggesting that there is no evidence of stress-induced ischemia on this study. FINAL IMPRESSION: 1. This is a negative stress test by EKG criteria with good exercise and with good exercise capacity. 2. Normal stress echocardiogram without evidence of ischemia. MMODL / IJN: [id number] /
--- NOTE | 2020-11-05 16:28 | P.HPIM ---
History of Present Illness H&P Date: 11/05/20 Chief Complaint: Chest pain Ms. Taylor is a 44-year-old female with a past medical history of hypertension, dyslipidemia, gestational diabetes and medical marijuana coming in with a chief complaint of right-sided chest discomfort and palpitations. Patient was recently admitted to the hospital couple of days back with the same complaint of chest pain, she had serial EKGs and troponins checked that were within normal limits. She was evaluated by cardiology , had an echocardiogram done that was within normal limits so she was discharged home to follow up with the outpatient stress test. Patient went home and quit cold turkey her marijuana, and smoking. Patient states that she started to have have some chest discomfort along with nausea. Patient denies having any vomiting. Over the past couple of days she has been having burning chest pain, headaches was feeling lightheaded and dizzy. Patient states that the weather has been hot outside but she was trying to stay indoors but felt that it could be the further. She also checked her blood pressure at home it was 1 70 x 1 01. Patient was started on hydrochlorothiazide and metoprolol, states that she has been taking these medications but her blood pressure was still high. In the ER at the time of admission temperature of 98, heart rate 78, respiratory 16, blood pressure 167/87, saturating at 99 on room air. On reviewing her labs white count of 10, hemoglobin 16.3, platelets 426. Sodium 1:30, but ultimately 0.1, chloride Name, bicarb 25,. 14, creatinine 0.7. Troponin less than 0.0123. AST ALT within normal limits. Albumin 4.9. Review of Systems REVIEW OF SYSTEMS: CONSTITUTIONAL: No fever, no malaise, no fatigue. HEENT: No headache, no neck stiffness, no blurring of vision CARDIOVASCULAR: As per HPI PULMONARY: No cough or difficulty in breathing GASTROINTESTINAL: No Abdominal pain nausea vomiting or diarrhea NEUROLOGICAL: No weakness of extremities HEMATOLOGICAL: Denies any bleeding or petechiae. GENITOURINARY: Denies any burning micturition, frequency, or urgency. MUSCULOSKELETAL/RHEUMATOLOGICAL: Denies any joint pain, swelling, or any muscle pain. ENDOCRINE: Denies polyuria polydipsia or heat or cold intolerance The rest of the 14-point review of systems is negative. Past Medical History Past Medical History: Hypertension Additional Past Medical History / Comment(s): ovarian cysts, kidney stones, History of Any Multi-Drug Resistant Organisms: None Reported Past Surgical History: Hysterectomy Past Anesthesia/Blood Transfusion Reactions: No Reported Reaction Past Psychological History: Anxiety Smoking Status: Current every day smoker Past Alcohol Use History: Rare Past Drug Use History: Marijuana Medications and Allergies Home Medications Medication Instructions Recorded Confirmed Type Biotin 10,000 mcg PO DAILY 10/31/20 11/05/20 History Cholecalciferol [Vitamin D3 (25 50 mcg PO DAILY 10/31/20 11/05/20 History Mcg = 1000 Iu)] Estradiol [Estrace] 1 mg PO DAILY 10/31/20 11/05/20 History Loratadine 10 mg PO HS 10/31/20 11/05/20 History Multivitamins, Thera [Multivitamin 1 tab PO DAILY 10/31/20 11/05/20 History (formulary)] [place]-3 Fatty Acids/Fish Oil [Fish 1 cap PO DAILY 10/31/20 11/05/20 History Oil 1,000 mg Softgel] Omeprazole 20 mg PO BID 10/31/20 11/05/20 History Potassium Chloride ER [K-Dur 10] 10 meq PO DAILY 10/31/20 11/05/20 History Venlafaxine HCl ER [Effexor XR] 75 mg PO HS 10/31/20 11/05/20 History Metoprolol Tartrate [Lopressor] 25 mg PO BID 30 Days #60 tab 11/01/20 11/05/20 Rx Allergies Allergy/AdvReac Type Severity Reaction Status Date / Time Sulfa (Sulfonamide Allergy Rash/Hives Verified 11/05/20 07:02 Antibiotics) Physical Exam Vitals: Vital Signs Temp Pulse Resp BP Pulse Ox 11/05/20 11:26 91 18 149/84 96 11/05/20 09:35 98.0 F 60 16 139/79 99 11/05/20 08:06 64 16 123/78 99 11/05/20 04:45 78 16 140/88 98 11/05/20 02:47 98 F 11/05/20 02:39 78 16 167/87 99 Intake and Output 11/04/20 11/05/20 11/05/20 22:59 06:59 14:59 Other: Weight 68.039 kg PHYSICAL EXAMINATION: GENERAL: Comfortably sitting up in bed appears in no acute distress. Eating her lunch. HEENT: Pupils are round and equally reacting to light. EOMI. No scleral icterus. No conjunctival pallor. CARDIOVASCULAR: S1 and S2 present. No murmurs, rubs, or gallops. PULMONARY: Bilateral breath sounds positive. No wheeze or crackles.. ABDOMEN: Soft,non -tender, normal bowel sounds. No guarding or rigidity. MUSCULOSKELETAL: No joint swelling or deformity. EXTREMITIES: No edema NEUROLOGICAL: Alert awake oriented 3 . Gross neurological examination did not reveal any focal deficits. SKIN:No rash Results CBC & Chem 7: 11/05/20 02:46 11/05/20 02:46 Labs: Abnormal Lab Results - Last 24 Hours (Table) 11/05/20 11/05/20 Range/Units 02:46 02:46 RBC 5.50 H (3.80-5.40) m/uL Hgb 16.3 H (11.4-16.0) gm/dL Potassium 3.1 L (3.5-5.1) mmol/L Glucose 118 H (74-99) mg/dL Assessment and Plan Assessment: ASSESSMENT Chest pain Hypertension poorly controlled Nicotine dependence Hyperlipidemia Gestational diabetes Medical marijuana use PLAN: Monitor serial EKGs and troponins Cardiology consulted, stress echo ordered Patient states that blood pressure has been running high, she has hypokalemia Will check plasma metanephrines, renin and aldosterone Patient has been restarted on home medications Further recommendations to follow depending on the progress of the patient
[2020-11-05] MEDS ORDERED: LORazepam 0.5 MG TAB PO STA (16:54)
[2020-11-05] MEDS: PANTOPRAZOLE 40 MG TABLET PO SCH (17:37)
[2020-11-05] MEDS: METOPROLOL TARTRATE 25 MG TAB PO SCH (20:16)
[2020-11-05] MEDS ORDERED: VENLAFAXINE HCL ER 75 MG CAP PO SCH (21:00)
[2020-11-06 07:59] VITALS: RESP 18
[2020-11-06] MEDS: METOPROLOL TARTRATE 25 MG TAB PO SCH (08:27)
[2020-11-06] MEDS: PANTOPRAZOLE 40 MG TABLET PO SCH (08:27)
[2020-11-06] MEDS: LOSARTAN 25 MG TAB PO SCH (08:27)
[2020-11-06] MEDS ORDERED: ASPIRIN 325 MG TAB PO SCH (09:00)
[2020-11-06 09:24] LABS: Basophils # (A) 0.04 X 10*3/uL (0.00-0.10); Basophils % (A) 0.5 %; Eosinophils # (A) 0.15 X 10*3/uL (0.04-0.35); HCT 42.2 % (37.2-46.3); HGB 14.7 g/dL (12.0-15.0); Lymphocytes # (A) 3.49 X 10*3/uL (0.90-5.00); Lymphocytes % (A) 46.7 %; MCH 29.9 pg (27.0-32.0); MCHC 34.8 g/dL (32.0-37.0); MCV 85.9 fL (80.0-97.0); Monocytes # (A) 0.69 X 10*3/uL (0.20-1.00); Monocytes % (A) 9.2 %; Neutrophils # (A) 3.08 X 10*3/uL (1.80-7.70); Neutrophils % (A) 41.3 %; Platelet Count 370 X 10*3/uL (140-440); RBC 4.91 X 10*6/uL (4.10-5.20); RDW 12.5 % (11.5-14.5); WBC 7.47 X 10*3/uL (4.50-10.00)
[2020-11-06 09:43] LABS: African American GFR (CKD) 103.2 (60.0-200.0); Albumin 4.1 g/dL (3.80-4.90); Albumin/Globulin Ratio 1.78 (1.60-3.17); Anion Gap 8.2 mmol/L (4.00-12.00); BUN/Creat Ratio 18.75 Ratio (12.00-20.00); Calcium 9.2 mg/dL (8.7-10.3); Carbon Dioxide 28.8 mmol/L (21.6-31.8); Chol/HDL Ratio 3.4; Globulin 2.3 g/dL (1.6-3.3); LDL Cholesterol,Calculated 113.4 mg/dL (0.0-131.0); Potassium 3.5 mmol/L (3.5-5.5); Total Bilirubin 0.6 mg/dL (0.3-1.2); Total Protein 6.4 g/dL (6.2-8.2); VLDL Calculation 13.6 mg/dL (5.00-40.00)
[2020-11-06 14:21] VITALS: BP 116/78; PULSE 80; TEMP 98.2
--- NOTE | 2020-11-07 01:03 | P.DS ---
Providers Date of admission: 11/05/20 03:42 Expected date of discharge: 11/06/20 Attending physician: Kulwinder Stanton Consults: 11/05/20 03:42 Consult Physician Urgent Consulting Provider: Marcin Ferrari Consult Reason/Comments: cp Do you want consulting provider notified?: Yes Primary care physician: [facility] Course: Ms. Taylor is a 44-year-old female with a past medical history of hypertension, dyslipidemia, gestational diabetes and medical marijuana coming in with a chief complaint of right-sided chest discomfort and palpitations. Patient was recently admitted to the hospital couple of days back with the same complaint of chest pain, she had serial EKGs and troponins checked that were within normal limits. She was evaluated by cardiology , had an echocardiogram done that was within normal limits so she was discharged home to follow up with the outpatient stress test. Patient went home and quit cold turkey her marijuana, and smoking. Patient states that she started to have have some chest discomfort along with nausea. Patient denies having any vomiting. Over the past couple of days she has been having burning chest pain, headaches was feeling lightheaded and dizzy. Patient states that the weather has been hot outside but she was trying to stay indoors but felt that it could be the further. She also checked her blood pressure at home it was 1 70 x 1 01. Patient was started on hydrochlorothiazide and metoprolol, states that she has been taking these medications but her blood pressure was still high. In the ER at the time of admission temperature of 98, heart rate 78, respiratory 16, blood pressure 167/87, saturating at 99 on room air. On reviewing her labs white count of 10, hemoglobin 16.3, platelets 426. Sodium 1:30, but ultimately 0.1, chloride Name, bicarb 25,. 14, creatinine 0.7. Troponin less than 0.0123. AST ALT within normal limits. Albumin 4.9. Hospital course - Patient had a stress test done that was negative for any inducible ischemia. This morning patient was comfortably lying in bed appears to be no acute distress. As per discussion with nursing staff patient became emotional and tearful stating that she is happy that the stress test has come back negative. Patient has been started on losartan and continued on metoprolol. Her hydrochlorothiazide has been discontinued. Patient's blood pressure within normal limits on these 2 medications. She has been cleared by cardiology to be discharged home and have a follow-up with her PCP in 2 to 3 days. Also given a follow-up appointment with cardiology in 1 week. Vital Signs 11/06/20 11/06/20 14:08 14:20 Temperature 98.2 F Pulse Rate [ 80 Left Pulse Oximetery] Respiratory 18 18 Rate Blood Pressure 116/78 [Left Arm] O2 Sat by Pulse 99 Oximetry PHYSICAL EXAMINATION: GENERAL: Comfortably sitting up in bed appears in no acute distress. Eating her lunch. HEENT: Pupils are round and equally reacting to light. EOMI. No scleral icterus. No conjunctival pallor. CARDIOVASCULAR: S1 and S2 present. No murmurs, rubs, or gallops. PULMONARY: Bilateral breath sounds positive. No wheeze or crackles.. ABDOMEN: Soft,non -tender, normal bowel sounds. No guarding or rigidity. MUSCULOSKELETAL: No joint swelling or deformity. EXTREMITIES: No edema NEUROLOGICAL: Alert awake oriented 3 . Gross neurological examination did not reveal any focal deficits. SKIN:No rash DISCHARGE DIAGNOSIS Chest pain Hypertension poorly controlled Nicotine dependence Hyperlipidemia Gestational diabetes Medical marijuana use Discussed with patient in detail about the discharge medications and to continue taking metoprolol 25 mg twice daily along with losartan 25 mg daily. Her hydrochlorothiazide has been discontinued. Her potassium is on the lower side so advised to continue with 10 mEq of potassium supplements daily. Patient is advised to check BMP in 3 to 4 days and have her follow-up with her PCP. Follow-up:Advised follow up with PCP in 2-3 days and Cardiology in 1 week. More than 35 mins spent towards the discharge of the patient. Patient Condition at Discharge: Good Plan - Discharge Summary Discharge Rx Participant: No New Discharge Prescriptions: New Losartan [Cozaar] 25 mg PO DAILY 30 Days #30 tab Continue Potassium Chloride ER [K-Dur 10] 10 meq PO DAILY [place]-3 Fatty Acids/Fish Oil [Fish Oil 1,000 mg Softgel] 1 cap PO DAILY Loratadine 10 mg PO HS Venlafaxine HCl ER [Effexor XR] 75 mg PO HS Multivitamins, Thera [Multivitamin (formulary)] 1 tab PO DAILY Estradiol [Estrace] 1 mg PO DAILY Omeprazole 20 mg PO BID Cholecalciferol [Vitamin D3 (25 Mcg = 1000 Iu)] 50 mcg PO DAILY Biotin 10,000 mcg PO DAILY Metoprolol Tartrate [Lopressor] 25 mg PO BID 30 Days #60 tab Discontinued hydroCHLOROthiazide [Hydrodiuril] 50 mg PO DAILY Discharge Medication List Biotin 10,000 mcg PO DAILY 10/31/20 [History] Cholecalciferol [Vitamin D3 (25 Mcg = 1000 Iu)] 50 mcg PO DAILY 10/31/20 [History] Estradiol [Estrace] 1 mg PO DAILY 10/31/20 [History] Loratadine 10 mg PO HS 10/31/20 [History] Multivitamins, Thera [Multivitamin (formulary)] 1 tab PO DAILY 10/31/20 [History] [place]-3 Fatty Acids/Fish Oil [Fish Oil 1,000 mg Softgel] 1 cap PO DAILY 10/31/20 [History] Omeprazole 20 mg PO BID 10/31/20 [History] Potassium Chloride ER [K-Dur 10] 10 meq PO DAILY 10/31/20 [History] Venlafaxine HCl ER [Effexor XR] 75 mg PO HS 10/31/20 [History] Metoprolol Tartrate [Lopressor] 25 mg PO BID 30 Days #60 tab 11/01/20 [Rx] Losartan [Cozaar] 25 mg PO DAILY 30 Days #30 tab 11/06/20 [Rx] Follow up Appointment(s)/Referral(s): Marcin Ferrari MD [STAFF PHYSICIAN] - 11/14/20 [facility] [Primary Care Provider] - 1-2 days Ambulatory/Diagnostic Orders: Basic Metabolic Panel [LAB.AMB] Location: None Selected Basic Metabolic Panel [LAB.AMB] Time Frame: 3 Days, Location: None Selected Patient Instructions/Handouts: Chest Pain (DC), Hypertension (DC) Discharge Disposition: HOME SELF-CARE
== END 2020-11-06 16:31 | disposition home or self-care (01) ==
LOC: EC 02:38 → 6NMEDSUR 03:42
PROVIDERS: ADMIT Hospitalist; ATTEND Hospitalist
DX: R07.89 Other chest pain (principal); E87.6 Hypokalemia; I10 Essential (primary) hypertension; F41.9 Anxiety disorder, unspecified; E78.5 Hyperlipidemia, unspecified; K21.9 Gastro-esophageal reflux disease without esophagitis; F12.90 Cannabis use, unspecified, uncomplicated; F17.200 Nicotine dependence, unspecified, uncomplicated; R11.0 Nausea; R42 Dizziness and giddiness; Z79.890 Hormone replacement therapy; Z79.899 Other long term (current) drug therapy; Z88.2 Allergy status to sulfonamides; Z87.442 Personal history of urinary calculi; Z90.710 Acquired absence of both cervix and uterus; Z87.42 Personal history of other diseases of the female genital tract; Z86.32 Personal history of gestational diabetes; Z82.49 Family history of ischemic heart disease and other diseases of the circulatory system
CPT/HCPCS: 96374; 96375; 99285; 36415; 94760; 93005; 93351; 83835; 83880; 80061; 80053 ×2; 82088; 82550; 84244; 83735; 84100; 84484; 85025 ×2; 85610; 85730; G0378 ×2; J2060; J2405; J1644

== ENCOUNTER 2020-12-19 00:40 | Observation (INO) | payer OTHER ==
[2020-12-19] MEDS ORDERED: SODIUM CHLORIDE 0.9% 1,000 ML IV STA (00:56)
--- NOTE | 2020-12-19 00:57 | ED ---
Recheck HPI - General Stated Complaint: Chest pain Time Seen by Provider: 12/19/20 00:45 Source: RN notes reviewed, old records reviewed Limitations: no limitations - History of Present Illness Initial Comments: This is a 45-year-old female to the ER today for evaluation valuation regards to what likely minimal to anxiety and elevated blood pressure not feeling well today. Patient did recently stopped her Klonopin pills which she did take at night and became anxious tonight. A she does have recent medical history with heart disease and is always concerned about her heart and has been at a heighte isabel level response to anything to do with her heart as of late. Recently did make a blood pressure medication change. Otherwise no fever nausea vomiting or diarrhea. No other complaints MD Complaint: abnormal lab (Elevated blood pressure) -: hour(s) Returns Today for: persistent/worsening pain related to initial visit Symptoms Since Prior Visit: no new symptoms, worsening pain Context: other (A she did stop taking medication Klonopin) Associated Symptoms: none Treatments Prior to Arrival: other - Related Data Home Medications Medication Instructions Recorded Confirmed Biotin 10,000 mcg PO DAILY 10/31/20 11/05/20 Cholecalciferol [Vitamin D3 (25 50 mcg PO DAILY 10/31/20 11/05/20 Mcg = 1000 Iu)] Estradiol [Estrace] 1 mg PO DAILY 10/31/20 11/05/20 Loratadine 10 mg PO HS 10/31/20 11/05/20 Multivitamins, Thera [Multivitamin 1 tab PO DAILY 10/31/20 11/05/20 (formulary)] [place]-3 Fatty Acids/Fish Oil [Fish 1 cap PO DAILY 10/31/20 11/05/20 Oil 1,000 mg Softgel] Omeprazole 20 mg PO BID 10/31/20 11/05/20 Potassium Chloride ER [K-Dur 10] 10 meq PO DAILY 10/31/20 11/05/20 Venlafaxine HCl ER [Effexor XR] 75 mg PO HS 10/31/20 11/05/20 Previous Rx's Medication Instructions Recorded Metoprolol Tartrate [Lopressor] 25 mg PO BID 30 Days #60 tab 11/01/20 Losartan [Cozaar] 25 mg PO DAILY 30 Days #30 tab 11/06/20 Allergies Allergy/AdvReac Type Severity Reaction Status Date / Time Sulfa (Sulfonamide Allergy Rash/Hives Verified 11/05/20 07:02 Antibiotics) Review of Systems ROS Statement: Those systems with pertinent positive or pertinent negative responses have been documented in the HPI. ROS Other: All systems not noted in ROS Statement are negative. Past Medical History Past Medical History: Hypertension Additional Past Medical History / Comment(s): ovarian cysts, kidney stones, History of Any Multi-Drug Resistant Organisms: None Reported Past Surgical History: Hysterectomy Past Anesthesia/Blood Transfusion Reactions: No Reported Reaction Past Psychological History: Anxiety Smoking Status: Current every day smoker Past Alcohol Use History: Rare Past Drug Use History: Marijuana General Exam General appearance: alert, in no apparent distress Head exam: Present: atraumatic, normocephalic, normal inspection Eye exam: Present: normal appearance, PERRL, EOMI. Absent: scleral icterus, conjunctival injection, periorbital swelling ENT exam: Present: normal exam, mucous membranes moist Neck exam: Present: normal inspection. Absent: tenderness, meningismus, lymphadenopathy Respiratory exam: Present: normal lung sounds bilaterally. Absent: respiratory distress, wheezes, rales, rhonchi, stridor Cardiovascular Exam: Present: regular rate, normal rhythm, normal heart sounds. Absent: systolic murmur, diastolic murmur, rubs, gallop, clicks GI/Abdominal exam: Present: soft, normal bowel sounds. Absent: distended, tenderness, guarding, rebound, rigid Extremities exam: Present: normal inspection, full ROM, normal capillary refill. Absent: tenderness, pedal edema, joint swelling, calf tenderness Back exam: Present: normal inspection Neurological exam: Present: alert, oriented X3, CN II-XII intact Psychiatric exam: Present: normal affect, normal mood Skin exam: Present: warm, dry, intact, normal color. Absent: rash Course Vital Signs 12/19/20 12/19/20 00:50 01:04 Temperature 97.9 F Pulse Rate 79 Respiratory 18 18 Rate Blood Pressure 154/72 O2 Sat by Pulse 97 Oximetry - Reevaluation(s) Reevaluation #1: 12/19/20 02:09 Medical record is reviewed Reevaluation #2: 12/19/20 02:09 Patient symptoms improved on their own and remained improved Reevaluation #3: 12/19/20 02:09 Patient informed results and questions answered Reevaluation #4: 12/19/20 02:10 Patient does feel comfortable for discharge home Medical Decision Making - Medical Decision Making 45 female likely anxiety reaction versus normal reaction of Klonopin stoppage of her nighttime dosing. Symptoms resolved here in the ER she does feel improved and okay for discharge home - Lab Data Result diagrams: 12/19/20 01:04 12/19/20 01:04 Lab Results 12/19/20 12/19/20 12/19/20 Range/Units 01:04 01:04 01:04 WBC 11.3 H (3.8-10.6) k/uL RBC 4.96 (3.80-5.40) m/uL Hgb 15.3 (11.4-16.0) gm/dL Hct 43.6 (34.0-46.0) % MCV 87.8 D (80.0-100.0) fL MCH 30.8 (25.0-35.0) pg MCHC 35.1 (31.0-37.0) g/dL RDW 12.6 (11.5-15.5) % Plt Count 406 (150-450) k/uL MPV 7.6 Neutrophils % 59 % Lymphocytes % 32 % Monocytes % 4 % Eosinophils % 2 % Basophils % 1 % Neutrophils # 6.7 (1.3-7.7) k/uL Lymphocytes # 3.6 (1.0-4.8) k/uL Monocytes # 0.5 (0-1.0) k/uL Eosinophils # 0.3 (0-0.7) k/uL Basophils # 0.1 (0-0.2) k/uL Sodium 139 (137-145) mmol/L Potassium 3.8 (3.5-5.1) mmol/L Chloride 106 (98-107) mmol/L Carbon Dioxide 23 (22-30) mmol/L Anion Gap 10 mmol/L BUN 15 (7-17) mg/dL Creatinine 0.75 (0.52-1.04) mg/dL Est GFR (CKD-EPI)AfAm >90 (>60 ml/min/1.73 sqM) Est GFR (CKD-EPI)NonAf >90 (>60 ml/min/1.73 sqM) Glucose 109 H (74-99) mg/dL Calcium 10.2 (8.4-10.2) mg/dL Phosphorus 3.1 (2.5-4.5) mg/dL Magnesium 1.8 (1.6-2.3) mg/dL Total Bilirubin 0.3 (0.2-1.3) mg/dL AST 27 (14-36) U/L ALT 12 (4-34) U/L Alkaline Phosphatase 74 (38-126) U/L Creatine Kinase 55 (30-135) U/L Troponin I (0.000-0.034) ng/mL Total Protein 7.3 (6.3-8.2) g/dL Albumin 4.5 (3.5-5.0) g/dL Urine Color Colorless Urine Appearance Clear (Clear) Urine pH 7.0 (5.0-8.0) Ur Specific [place] 1.002 (1.001-1.035) Urine Protein Negative (Negative) Urine Glucose (UA) Negative (Negative) Urine Ketones Negative (Negative) Urine Blood Negative (Negative) Urine Nitrite Negative (Negative) Urine Bilirubin Negative (Negative) Urine Urobilinogen <2.0 (<2.0) mg/dL Ur Leukocyte Esterase Negative (Negative) 12/19/20 Range/Units 01:04 WBC (3.8-10.6) k/uL RBC (3.80-5.40) m/uL Hgb (11.4-16.0) gm/dL Hct (34.0-46.0) % MCV (80.0-100.0) fL MCH (25.0-35.0) pg MCHC (31.0-37.0) g/dL RDW (11.5-15.5) % Plt Count (150-450) k/uL MPV Neutrophils % % Lymphocytes % % Monocytes % % Eosinophils % % Basophils % % Neutrophils # (1.3-7.7) k/uL Lymphocytes # (1.0-4.8) k/uL Monocytes # (0-1.0) k/uL Eosinophils # (0-0.7) k/uL Basophils # (0-0.2) k/uL Sodium (137-145) mmol/L Potassium (3.5-5.1) mmol/L Chloride (98-107) mmol/L Carbon Dioxide (22-30) mmol/L Anion Gap mmol/L BUN (7-17) mg/dL Creatinine (0.52-1.04) mg/dL Est GFR (CKD-EPI)AfAm (>60 ml/min/1.73 sqM) Est GFR (CKD-EPI)NonAf (>60 ml/min/1.73 sqM) Glucose (74-99) mg/dL Calcium (8.4-10.2) mg/dL Phosphorus (2.5-4.5) mg/dL Magnesium (1.6-2.3) mg/dL Total Bilirubin (0.2-1.3) mg/dL AST (14-36) U/L ALT (4-34) U/L Alkaline Phosphatase (38-126) U/L Creatine Kinase (30-135) U/L Troponin I <0.012 (0.000-0.034) ng/mL Total Protein (6.3-8.2) g/dL Albumin (3.5-5.0) g/dL Urine Color Urine Appearance (Clear) Urine pH (5.0-8.0) Ur Specific [place] (1.001-1.035) Urine Protein (Negative) Urine Glucose (UA) (Negative) Urine Ketones (Negative) Urine Blood (Negative) Urine Nitrite (Negative) Urine Bilirubin (Negative) Urine Urobilinogen (<2.0) mg/dL Ur Leukocyte Esterase (Negative) - EKG Data -: EKG Interpreted by Me (EKG shows sinus rhythm 67 MI 168 QRS 72 QTC 420) Disposition Clinical Impression: Palpitations, Anxiety, Hypertension Disposition: HOME SELF-CARE Condition: Good Instructions (If sedation given, give patient instructions): Hypertension (ED) Is patient prescribed a controlled substance at d/c from ED?: No Referrals: None,Stated [REFERRING] - 1-2 days
[2020-12-19 00:58] VITALS: RESP 18; TEMP 97.9
[2020-12-19 01:31] LABS: Basophils # (A) 0.1 k/uL (0-0.2); Basophils % (A) 1 %; Eosinophils # (A) 0.3 k/uL (0-0.7); Eosinophils % (A) 2 %; HCT 43.6 % (34.0-46.0); HGB 15.3 gm/dL (11.4-16.0); Lymphocytes # (A) 3.6 k/uL (1.0-4.8); Lymphocytes % (A) 32 %; MCH 30.8 pg (25.0-35.0); MCHC 35.1 g/dL (31.0-37.0); Mean Platelet Volume 7.6; Monocytes # (A) 0.5 k/uL (0-1.0); Monocytes % (A) 4 %; Neutrophils # (A) 6.7 k/uL (1.3-7.7); Neutrophils % (A) 59 %; Platelet Count 406 k/uL (150-450); RBC 4.96 m/uL (3.80-5.40); RDW 12.6 % (11.5-15.5); WBC 11.3 k/uL (3.8-10.6)
[2020-12-19 01:39] LABS: Appearance,Urine Clear (Clear); Bilirubin,Urine Negative (Negative); Blood,Urine Negative (Negative); Color,Urine Colorless; Glucose,Urine (UA) Negative (Negative); Ketones,Urine Negative (Negative); Leukocyte Esterase,Urine Negative (Negative); MCV 87.8 fL (80.0-100.0); Nitrite,Urine Negative (Negative); Protein,Urine Negative (Negative); Specific Gravity,Urine 1.002 (1.001-1.035); Urobilinogen,Urine <2.0 mg/dL (<2.0)
[2020-12-19 01:52] LABS: ALT 12 U/L (4-34); AST 27 U/L (14-36); African American GFR (CKD) >90 (>60 ml/min/1.73 sqM); Albumin 4.5 g/dL (3.5-5.0); Alkaline Phosphatase 74 U/L (38-126); Anion Gap 10 mmol/L; Blood Urea Nitrogen 15 mg/dL (7-17); Calcium 10.2 mg/dL (8.4-10.2); Carbon Dioxide 23 mmol/L (22-30); Chloride 106 mmol/L (98-107); Creatine Kinase 55 U/L (30-135); Glucose 109 mg/dL (74-99); Magnesium 1.8 mg/dL (1.6-2.3); Non-African American GFR(CKD) >90 (>60 ml/min/1.73 sqM); Phosphorus 3.1 mg/dL (2.5-4.5); Potassium 3.8 mmol/L (3.5-5.1); Sodium 139 mmol/L (137-145); Total Bilirubin 0.3 mg/dL (0.2-1.3); Total Protein 7.3 g/dL (6.3-8.2)
[2020-12-19] MEDS ORDERED: ASPIRIN 81 MG PO STA (02:23)
[2020-12-19] MEDS ORDERED: MORPHINE SULFATE 4 MG/ML SYRINGE IV PRN (02:23)
[2020-12-19] MEDS ORDERED: NITROGLYCERIN SL TABS 0.4 MG TAB SUBLINGUAL PRN (02:23)
--- NOTE | 2020-12-19 02:25 | ED ---
Medical Decision Making - Medical Decision Making 45 female to the ER today for evaluation patient some anxiety chest pain and palpitations is having some PVCs here in the ER she does not feel couple with discharge home at this time will admit for cardiology evaluation - Lab Data Result diagrams: 12/19/20 01:04 12/19/20 01:04 Lab Results 12/19/20 12/19/20 12/19/20 Range/Units 01:04 01:04 01:04 WBC 11.3 H (3.8-10.6) k/uL RBC 4.96 (3.80-5.40) m/uL Hgb 15.3 (11.4-16.0) gm/dL Hct 43.6 (34.0-46.0) % MCV 87.8 D (80.0-100.0) fL MCH 30.8 (25.0-35.0) pg MCHC 35.1 (31.0-37.0) g/dL RDW 12.6 (11.5-15.5) % Plt Count 406 (150-450) k/uL MPV 7.6 Neutrophils % 59 % Lymphocytes % 32 % Monocytes % 4 % Eosinophils % 2 % Basophils % 1 % Neutrophils # 6.7 (1.3-7.7) k/uL Lymphocytes # 3.6 (1.0-4.8) k/uL Monocytes # 0.5 (0-1.0) k/uL Eosinophils # 0.3 (0-0.7) k/uL Basophils # 0.1 (0-0.2) k/uL Sodium 139 (137-145) mmol/L Potassium 3.8 (3.5-5.1) mmol/L Chloride 106 (98-107) mmol/L Carbon Dioxide 23 (22-30) mmol/L Anion Gap 10 mmol/L BUN 15 (7-17) mg/dL Creatinine 0.75 (0.52-1.04) mg/dL Est GFR (CKD-EPI)AfAm >90 (>60 ml/min/1.73 sqM) Est GFR (CKD-EPI)NonAf >90 (>60 ml/min/1.73 sqM) Glucose 109 H (74-99) mg/dL Calcium 10.2 (8.4-10.2) mg/dL Phosphorus 3.1 (2.5-4.5) mg/dL Magnesium 1.8 (1.6-2.3) mg/dL Total Bilirubin 0.3 (0.2-1.3) mg/dL AST 27 (14-36) U/L ALT 12 (4-34) U/L Alkaline Phosphatase 74 (38-126) U/L Creatine Kinase 55 (30-135) U/L Troponin I (0.000-0.034) ng/mL Total Protein 7.3 (6.3-8.2) g/dL Albumin 4.5 (3.5-5.0) g/dL Urine Color Colorless Urine Appearance Clear (Clear) Urine pH 7.0 (5.0-8.0) Ur Specific [place] 1.002 (1.001-1.035) Urine Protein Negative (Negative) Urine Glucose (UA) Negative (Negative) Urine Ketones Negative (Negative) Urine Blood Negative (Negative) Urine Nitrite Negative (Negative) Urine Bilirubin Negative (Negative) Urine Urobilinogen <2.0 (<2.0) mg/dL Ur Leukocyte Esterase Negative (Negative) 12/19/20 Range/Units 01:04 WBC (3.8-10.6) k/uL RBC (3.80-5.40) m/uL Hgb (11.4-16.0) gm/dL Hct (34.0-46.0) % MCV (80.0-100.0) fL MCH (25.0-35.0) pg MCHC (31.0-37.0) g/dL RDW (11.5-15.5) % Plt Count (150-450) k/uL MPV Neutrophils % % Lymphocytes % % Monocytes % % Eosinophils % % Basophils % % Neutrophils # (1.3-7.7) k/uL Lymphocytes # (1.0-4.8) k/uL Monocytes # (0-1.0) k/uL Eosinophils # (0-0.7) k/uL Basophils # (0-0.2) k/uL Sodium (137-145) mmol/L Potassium (3.5-5.1) mmol/L Chloride (98-107) mmol/L Carbon Dioxide (22-30) mmol/L Anion Gap mmol/L BUN (7-17) mg/dL Creatinine (0.52-1.04) mg/dL Est GFR (CKD-EPI)AfAm (>60 ml/min/1.73 sqM) Est GFR (CKD-EPI)NonAf (>60 ml/min/1.73 sqM) Glucose (74-99) mg/dL Calcium (8.4-10.2) mg/dL Phosphorus (2.5-4.5) mg/dL Magnesium (1.6-2.3) mg/dL Total Bilirubin (0.2-1.3) mg/dL AST (14-36) U/L ALT (4-34) U/L Alkaline Phosphatase (38-126) U/L Creatine Kinase (30-135) U/L Troponin I <0.012 (0.000-0.034) ng/mL Total Protein (6.3-8.2) g/dL Albumin (3.5-5.0) g/dL Urine Color Urine Appearance (Clear) Urine pH (5.0-8.0) Ur Specific [place] (1.001-1.035) Urine Protein (Negative) Urine Glucose (UA) (Negative) Urine Ketones (Negative) Urine Blood (Negative) Urine Nitrite (Negative) Urine Bilirubin (Negative) Urine Urobilinogen (<2.0) mg/dL Ur Leukocyte Esterase (Negative) Disposition Clinical Impression: Palpitations, Anxiety, Hypertension, Chest pain Disposition: ADMITTED IP TO THIS [facility] Condition: Undetermined Instructions (If sedation given, give patient instructions): Hypertension (ED) Is patient prescribed a controlled substance at d/c from ED?: No Referrals: None,Stated [REFERRING] - 1-2 days
[2020-12-19] MEDS ORDERED: SODIUM CHLORIDE 0.9% 1,000 ML IV SCH (02:30)
--- NOTE | 2020-12-19 10:52 | P.CRDCN ---
History of Present Illness History of present illness: HISTORY OF PRESENTING ILLNESS This is a pleasant 45-year-old female past medical history significant for hypertension, chronic nicotine dependence, hyperlipidemia, gestational diabetes, marijuana use. She also has a significant family history of premature CAD with her mother who at the age of 49 from an [place] and her father who had his first [place] in his 40s and subsequent CABG. She follows in the office with Dr. Ferrari. We have been asked to see in consultation for chest pain. Patient is seen and examined in the emergency department. Last night had palpitations, burning in chest, BP was high SBP 150s, headache also was present. Pain is non- radiating, non exertional. No associated nausea, diaphoresis. She took her blood pressure medications. No specific aggravating or alleviating factors. Symptoms have now resolved. She was recently admitted on 10/31/2020 with similar comp laints. 11/01/2020 Patient underwent Echocardiogram revealed EF 55-60%, trace mitral regurgitation, trace tricuspid regurgitation. She was started on metoprolol tartrate 25mg BID, she was stable and discharged home. 11/05/20, patient presented back with chest pain. Underwent stress echocardiogram test on 11/05/20 which was negative for stress induced ischemia. DIAGNOSTICS EKG reveals sinus rhythm, rate 67 no evidence of ischemia. prior EKG wiwth similar findings Telemetry tracings indicate sinus mechanism Laboratory reviewed, troponin negative 2, WBC 11.3, hemoglobin 8.3, platelets 406, sodium 139, potassium 3.8, P1 15, serum creatinine 0.7, magnesium 1.8, UA negative for UTI. REVIEW OF SYSTEMS At the time of my exam: CONSTITUTIONAL: Denies fever or chills. CARDIOVASCULAR: Positive chest pain, Denies shortness of breath Denies , orthopnea, PND or palpitations. RESPIRATORY: Denies cough. GASTROINTESTINAL: Positive epigastric pain, nausea and vomiting Denies diarrhea, constipation MUSCULOSKELETAL: Denies myalgias. NEUROLOGIC: Positive lightheadedness positive dizziness Denies numbness, tingling, headacbe or weakness. ENDOCRINE: Denies fatigue, weight change, polydipsia or polyurina. GENITOURINARY: Denies burning, hematuria or urgency with micturation. HEMATOLOGIC: Denies history of anemia or bleeding. PHYSICAL EXAMINATION Blood pressure 123/78 heart rate 60 afebrile and maintaining oxygen saturation 99% on room air CONSTITUTIONAL: No apparent distress. HEENT: Head is normocephalic. Pupils are equal, round. Sclerae anicteric. Mucous membranes of the mouth are moist. No JVD. No carotid bruit. CHEST EXAMINATION: Lungs are clear to auscultation. No chest wall tenderness is noted on palpation or with deep breathing. HEART EXAMINATION: Regular rate and rhythm. S1, S2 heard. No murmurs, gallops or rub. ABDOMEN: Soft, nontender. Positive bowel sounds. EXTREMITIES: 2+ peripheral pulses, no lower extremity edema and no calf tenderness. SKIN: intact NEUROLOGIC EXAMINATION: Patient is awake, alert and oriented x3. ASSESSMENT Chest pain, atypical, acute coronary syndrome is ruled out Hypertension Chronic nicotine dependence Gestational diabetes Hyperlipidemia, not on medications, being monitored by PCP Marijuana use PLAN An acute coronary event has been ruled out with no EKG evidence of ischemia and negative cardiac enzymes. Recent negative stress test on 11/05/20 and recent normal echocardiogram on 11/01/20 No further cardiac testing at this time. We will sign off at this time. Please reconsult if questions or concerns. Continue home cardiac medications Follow up outpatient with Dr. Ferrari Thank you kindly for this consultation. Nurse Practitioner note has been reviewed, I agree with a documented findings and plan of care. Patient was seen and examined. Past Medical History Past Medical History: Hypertension Additional Past Medical History / Comment(s): ovarian cysts, kidney stones, History of Any Multi-Drug Resistant Organisms: None Reported Past Surgical History: Hysterectomy Additional Past Surgical History / Comment(s): heital hernia removal, Past Anesthesia/Blood Transfusion Reactions: No Reported Reaction Past Psychological History: Anxiety Smoking Status: Current every day smoker Past Alcohol Use History: Rare Past Drug Use History: Marijuana Medications and Allergies Home Medications Medication Instructions Recorded Confirmed Type Biotin 10,000 mcg PO DAILY 10/31/20 12/19/20 History Cholecalciferol [Vitamin D3 (25 50 mcg PO DAILY 10/31/20 12/19/20 History Mcg = 1000 Iu)] Estradiol [Estrace] 1 mg PO DAILY 10/31/20 12/19/20 History Loratadine 10 mg PO HS 10/31/20 12/19/20 History Multivitamins, Thera [Multivitamin 1 tab PO DAILY 10/31/20 12/19/20 History (formulary)] [place]-3 Fatty Acids/Fish Oil [Fish 1 cap PO DAILY 10/31/20 12/19/20 History Oil 1,000 mg Softgel] Omeprazole 20 mg PO BID 10/31/20 12/19/20 History Metoprolol Tartrate [Lopressor] 25 mg PO BID 30 Days #60 tab 11/01/20 12/19/20 Rx Venlafaxine HCl [Effexor XR] 150 mg PO HS 12/19/20 12/19/20 History Allergies Allergy/AdvReac Type Severity Reaction Status Date / Time Sulfa (Sulfonamide Allergy Rash/Hives Verified 12/19/20 08:40 Antibiotics) Physical Exam Vitals: Vital Signs Temp Pulse Resp BP Pulse Ox 12/19/20 06:12 75 18 126/73 98 12/19/20 05:16 67 18 125/72 99 12/19/20 04:03 71 18 130/74 98 12/19/20 03:15 80 18 140/67 99 12/19/20 02:15 83 18 140/74 100 12/19/20 01:04 18 12/19/20 00:50 97.9 F 79 18 154/72 97 Intake and Output 12/18/20 12/18/20 12/19/20 14:59 22:59 06:59 Other: Weight 69.4 kg Results 12/19/20 01:04 12/19/20 01:04 Cardiac Enzymes 12/19/20 12/19/20 12/19/20 Range/Units 01:04 01:04 04:37 AST 27 (14-36) U/L Troponin I <0.012 <0.012 (0.000-0.034) ng/mL CBC 12/19/20 Range/Units 01:04 WBC 11.3 H (3.8-10.6) k/uL RBC 4.96 (3.80-5.40) m/uL Hgb 15.3 (11.4-16.0) gm/dL Hct 43.6 (34.0-46.0) % Plt Count 406 (150-450) k/uL Comprehensive Metabolic Panel 12/19/20 Range/Units 01:04 Sodium 139 (137-145) mmol/L Potassium 3.8 (3.5-5.1) mmol/L Chloride 106 (98-107) mmol/L Carbon Dioxide 23 (22-30) mmol/L BUN 15 (7-17) mg/dL Creatinine 0.75 (0.52-1.04) mg/dL Glucose 109 H (74-99) mg/dL Calcium 10.2 (8.4-10.2) mg/dL AST 27 (14-36) U/L ALT 12 (4-34) U/L Alkaline Phosphatase 74 (38-126) U/L Total Protein 7.3 (6.3-8.2) g/dL Albumin 4.5 (3.5-5.0) g/dL Current Medications Generic Name Dose Route Start Last Admin Trade Name Freq PRN Reason Stop Dose Admin Aspirin 325 mg 12/20/20 09:00 Aspirin 325 Mg Tab PO DAILY JUAN M Sodium Chloride 1,000 mls @ 130 mls/hr 12/19/20 00:56 12/19/20 01:08 Saline 0.9% IV 12/19/20 08:37 130 mls/hr .[id number] STA Administration Sodium Chloride 1,000 mls @ 20 mls/hr 12/19/20 02:30 12/19/20 03:36 Saline 0.9% IV 20 mls/hr .Q24H JUAN M Administration Morphine Sulfate 4 mg 12/19/20 02:23 Morphine Sulfate 4 Mg/Ml Syringe IV Q4HR PRN Chest Pain Nitroglycerin 0.4 mg 12/19/20 02:23 Nitroglycerin Sl Tabs 0.4 Mg Tab SUBLINGUAL Q5M PRN Chest Pain Intake and Output 12/18/20 12/18/20 12/19/20 14:59 22:59 06:59 Other: Weight 69.4 kg Patient Weight 12/19/20 06:59 Weight 69.4 kg 12/19/20 01:04 12/19/20 01:04
[2020-12-19 14:49] VITALS: BP 131/87; PULSE 87
[2020-12-20] MEDS ORDERED: ASPIRIN 325 MG TAB PO SCH (09:00)
--- NOTE | 2021-01-22 01:58 | P.HPIM ---
History of Present Illness H&P Date: 12/19/20 Chief Complaint: Chest pain This is a pleasant 45-year-old female past medical history significant for hypertension, chronic nicotine dependence, hyperlipidemia, gestational diabetes, marijuana use. She also has a significant family history of premature CAD with her mother who at the age of 49 from an [place] and her father who had his first [place] in his 40s and subsequent CABG. Last night had palpitations, burning in chest, BP was high SBP 150s, headache also was present. Pain is non- radiating, non exertional. No associated nausea, diaphoresis. She took her blood pressure medications. No specific aggravating or alleviating factors. Symptoms have now resolved. She was recently admitted on 10/31/2020 with similar complaints. 11/01/2020 Patient underwent Echocardiogram revealed EF 55-60%, trace mitral regurgitation, trace tricuspid regurgitation. She was started on metoprolol tartrate 25mg BID, she was stable and discharged home. 11/05/20, patient presented back with chest pain. Underwent stress echocardiogram test on 11/05/20 which was negative for stress induced ischemia. EKG reveals sinus rhythm, rate 67 no evidence of ischemia. prior EKG wiwth similar findings Telemetry tracings indicate sinus mechanism Laboratory reviewed, troponin negative 2, WBC 11.3, hemoglobin 8.3, platelets 406, sodium 139, potassium 3.8, P1 15, serum creatinine 0.7, magnesium 1.8, UA negative for UTI. Review of Systems REVIEW OF SYSTEMS At the time of my exam: CONSTITUTIONAL: Denies fever or chills. CARDIOVASCULAR: Positive chest pain, Denies shortness of breath Denies , orthopnea, PND or palpitations. RESPIRATORY: Denies cough. GASTROINTESTINAL: Positive epigastric pain, nausea and vomiting Denies diarrhea, constipation MUSCULOSKELETAL: Denies myalgias. NEUROLOGIC: Positive lightheadedness positive dizziness Denies numbness, tingli ng, headacbe or weakness. ENDOCRINE: Denies fatigue, weight change, polydipsia or polyurina. GENITOURINARY: Denies burning, hematuria or urgency with micturation. HEMATOLOGIC: Denies history of anemia or bleeding. Past Medical History Past Medical History: Hypertension Additional Past Medical History / Comment(s): ovarian cysts, kidney stones, History of Any Multi-Drug Resistant Organisms: None Reported Past Surgical History: Hysterectomy Additional Past Surgical History / Comment(s): heital hernia removal, Past Anesthesia/Blood Transfusion Reactions: No Reported Reaction Past Psychological History: Anxiety Smoking Status: Current every day smoker Past Alcohol Use History: Rare Past Drug Use History: Marijuana Medications and Allergies Home Medications Medication Instructions Recorded Confirmed Type Biotin 10,000 mcg PO DAILY 10/31/20 12/19/20 History Cholecalciferol [Vitamin D3 (25 50 mcg PO DAILY 10/31/20 12/19/20 History Mcg = 1000 Iu)] Estradiol [Estrace] 1 mg PO DAILY 10/31/20 12/19/20 History Loratadine 10 mg PO HS 10/31/20 12/19/20 History Multivitamins, Thera [Multivitamin 1 tab PO DAILY 10/31/20 12/19/20 History (formulary)] [place]-3 Fatty Acids/Fish Oil [Fish 1 cap PO DAILY 10/31/20 12/19/20 History Oil 1,000 mg Softgel] Omeprazole 20 mg PO BID 10/31/20 12/19/20 History Metoprolol Tartrate [Lopressor] 25 mg PO BID 30 Days #60 tab 11/01/20 12/19/20 Rx Aspirin 325 mg PO DAILY tab 12/19/20 Rx Venlafaxine HCl [Effexor XR] 150 mg PO HS 12/19/20 12/19/20 History Allergies Allergy/AdvReac Type Severity Reaction Status Date / Time Sulfa (Sulfonamide Allergy Rash/Hives Verified 12/19/20 08:40 Antibiotics) Physical Exam Vitals: Vital Signs Temp Pulse Resp BP Pulse Ox 12/19/20 09:11 84 18 134/83 98 12/19/20 06:12 75 18 126/73 98 12/19/20 05:16 67 18 125/72 99 12/19/20 04:03 71 18 130/74 98 12/19/20 03:15 80 18 140/67 99 12/19/20 02:15 83 18 140/74 100 12/19/20 01:04 18 12/19/20 00:50 97.9 F 79 18 154/72 97 Intake and Output 12/18/20 12/19/20 12/19/20 22:59 06:59 14:59 Other: Weight 69.4 kg PHYSICAL EXAMINATION Blood pressure 123/78 heart rate 60 afebrile and maintaining oxygen saturation 99% on room air CONSTITUTIONAL: No apparent distress. HEENT: Head is normocephalic. Pupils are equal, round. Sclerae anicteric. Mucous membranes of the mouth are moist. No JVD. No carotid bruit. CHEST EXAMINATION: Lungs are clear to auscultation. No chest wall tenderness is noted on palpation or with deep breathing. HEART EXAMINATION: Regular rate and rhythm. S1, S2 heard. No murmurs, gallops or rub. ABDOMEN: Soft, nontender. Positive bowel sounds. EXTREMITIES: 2+ peripheral pulses, no lower extremity edema and no calf tenderness. SKIN: intact NEUROLOGIC EXAMINATION: Patient is awake, alert and oriented x3. Results CBC & Chem 7: 12/19/20 01:04 12/19/20 01:04 Labs: Abnormal Lab Results - Last 24 Hours (Table) 12/19/20 12/19/20 Range/Units 01:04 01:04 WBC 11.3 H (3.8-10.6) k/uL Glucose 109 H (74-99) mg/dL Assessment and Plan Assessment: 1. Chest pain, atypical, acute coronary syndrome is ruled out 2. Hypertension 3. Chronic nicotine dependence 4. Hyperlipidemia, not on medications, being monitored by PCP 5. Marijuana use PLAN An acute coronary event has been ruled out with no EKG evidence of ischemia and negative cardiac enzymes. Recent negative stress test on 11/05/20 and recent normal echocardiogram on 11/01/20 we monitor EKG and trend Trop; continue current recs; Consult cardiology
--- NOTE | 2021-01-22 02:00 | P.DS ---
Providers Date of admission: 12/19/20 02:23 Expected date of discharge: 12/19/20 Attending physician: Kulwinder Stanton Consults: 12/19/20 02:23 Consult Physician Urgent Consulting Provider: Marcin Ferrari Consult Reason/Comments: PVC,CP,HTN Do you want consulting provider notified?: Yes Primary care physician: [facility] Course: This is a pleasant 45-year-old female past medical history significant for hypertension, chronic nicotine dependence, hyperlipidemia, gestational diabetes, marijuana use. She also has a significant family history of premature CAD with her mother who at the age of 49 from an [place] and her father who had his first [place] in his 40s and subsequent CABG. Last night had palpitations, burning in chest, BP was high SBP 150s, headache also was present. Pain is non- radiating, non exertional. No associated nausea, diaphoresis. She took her blood pressure medications. No specific aggravating or alleviating factors. Symptoms have now resolved. She was recently admitted on 10/31/2020 with similar complaints. 11/01/2020 Patient underwent Echocardiogram revealed EF 55-60%, trace mitral regurgitation, trace tricuspid regurgitation. She was started on metoprolol tartrate 25mg BID, she was stable and discharged home. 11/05/20, patient presented back with chest pain. Underwent stress echocardiogram test on 11/05/20 which was negative for stress induced ischemia. EKG reveals sinus rhythm, rate 67 no evidence of ischemia. prior EKG wiwth similar findings Telemetry tracings indicate sinus mechanism Laboratory reviewed, troponin negative 2, WBC 11.3, hemoglobin 8.3, platelets 406, sodium 139, potassium 3.8, P1 15, serum creatinine 0.7, magnesium 1.8, UA negative for UTI. Patient ruled out for ACS; Cardiology evaluated patient and recommended no further cardiac testing Patient Condition at Discharge: Undetermined Plan - Discharge Summary New Discharge Prescriptions: New Aspirin 325 mg PO DAILY tab Continue [place]-3 Fatty Acids/Fish Oil [Fish Oil 1,000 mg Softgel] 1 cap PO DAILY Loratadine 10 mg PO HS Multivitamins, Thera [Multivitamin (formulary)] 1 tab PO DAILY Estradiol [Estrace] 1 mg PO DAILY Omeprazole 20 mg PO BID Cholecalciferol [Vitamin D3 (25 Mcg = 1000 Iu)] 50 mcg PO DAILY Biotin 10,000 mcg PO DAILY Metoprolol Tartrate [Lopressor] 25 mg PO BID 30 Days #60 tab Venlafaxine HCl [Effexor XR] 150 mg PO HS Discharge Medication List Biotin 10,000 mcg PO DAILY 10/31/20 [History] Cholecalciferol [Vitamin D3 (25 Mcg = 1000 Iu)] 50 mcg PO DAILY 10/31/20 [History] Estradiol [Estrace] 1 mg PO DAILY 10/31/20 [History] Loratadine 10 mg PO HS 10/31/20 [History] Multivitamins, Thera [Multivitamin (formulary)] 1 tab PO DAILY 10/31/20 [History] [place]-3 Fatty Acids/Fish Oil [Fish Oil 1,000 mg Softgel] 1 cap PO DAILY 10/31/20 [History] Omeprazole 20 mg PO BID 10/31/20 [History] Metoprolol Tartrate [Lopressor] 25 mg PO BID 30 Days #60 tab 11/01/20 [Rx] Aspirin 325 mg PO DAILY tab 12/19/20 [Rx] Venlafaxine HCl [Effexor XR] 150 mg PO HS 12/19/20 [History] Follow up Appointment(s)/Referral(s): Marcin Ferrari MD [STAFF PHYSICIAN] - 2 Weeks None,Stated [REFERRING] - 1-2 days Patient Instructions/Handouts: Hypertension (ED) Discharge Disposition: HOME SELF-CARE
== END 2020-12-19 16:36 | disposition home or self-care (01) ==
LOC: EC 00:40 → 1SOBS 02:23 → 6NMEDSUR 12:38
PROVIDERS: ADMIT Hospitalist; ATTEND Hospitalist
DX: R07.89 Other chest pain (principal); R00.2 Palpitations; I10 Essential (primary) hypertension; F41.9 Anxiety disorder, unspecified; F17.200 Nicotine dependence, unspecified, uncomplicated; I49.3 Ventricular premature depolarization; R51.9 Headache, unspecified; E78.5 Hyperlipidemia, unspecified; Z79.890 Hormone replacement therapy; Z79.899 Other long term (current) drug therapy; Z88.2 Allergy status to sulfonamides; Z86.32 Personal history of gestational diabetes; Z87.442 Personal history of urinary calculi; Z90.710 Acquired absence of both cervix and uterus; Z87.42 Personal history of other diseases of the female genital tract; Z98.890 Other specified postprocedural states; Z82.49 Family history of ischemic heart disease and other diseases of the circulatory system; F12.90 Cannabis use, unspecified, uncomplicated; Z79.82 Long term (current) use of aspirin
CPT/HCPCS: 96360; 96361; 99285; 36415; 93005; 80053; 82550; 83735; 84100; 84484; 85025; 81003; G0378 ×2

== ENCOUNTER → 2021-03-05 | Outpatient (CLI) | payer OTHER ==
--- NOTE | 2021-03-05 09:38 | MM ---
Reason for exam: follow-up at short interval from prior study. Last mammogram was performed 6 months ago. History: Patient is postmenopausal. Taking estrogen for 6 years beginning at age 38. Physical Findings: Nurse did not find any significant physical abnormalities on exam. MG 3D Diag Mammo W/Cad ILA Bilateral CC and MLO view(s) were taken. Prior study comparison: August 28, 2020, bilateral MG 3d screening mammo w/cad. November 19, 2015, mammogram, performed at [place]. The breast tissue is heterogeneously dense. This may lower the sensitivity of mammography. There is chronic nodularity in the right posterior upper outer quadrant. Lobulated nodule central right breast 10mm versus 9mm previously. Cysts were seen 6 months ago. The left breast nodularity has resolved. Continued follow up recommended. Right ultrasound for white nipple discharge. These results were verbally communicated with the patient and result sheet given to the patient on 03/05/21. ASSESSMENT: Incomplete: need additional imaging evaluation, BI-RAD 0 RECOMMENDATION: Ultrasound of the right breast.
--- NOTE | 2021-03-05 09:43 | USB ---
Reason for exam: additional evaluation requested from abnormal screening. History: Patient is postmenopausal. Taking estrogen for 6 years beginning at age 38. US Breast Limited RT Technologist: Ninfa Matthews Right limited breast ultrasound including focal area of concern, retroareolar and axilla demonstrates no cystic or solid lesion seen. Scanned subareolar and periareolar. These results were verbally communicated with the patient and result sheet given to the patient on 03/05/21. ASSESSMENT: Probably benign, BI-RAD 3 RECOMMENDATION: Follow-up diagnostic mammogram of both breasts in 6 months. Manage on a clinical basis with regard to benign white nipple discharge. Spontaneous clear or bloody discharge would be concerning and warrant further work up.
== END | disposition home or self-care (01) ==
LOC: RADMAMWWP 07:01
DX: R92.8 Other abnormal and inconclusive findings on diagnostic imaging of breast (principal)
CPT/HCPCS: 77062; 77066

== ENCOUNTER 2021-06-01 11:04 | Observation (INO) | payer OTHER ==
[2021-06-01] MEDS ORDERED: SODIUM CHLORIDE 0.9% 500 ML 500 ML IV STA (11:24)
--- NOTE | 2021-06-01 11:52 | ED ---
General Adult HPI - General Chief complaint: Chest Pain Stated complaint: Covid+, Dizzy, Chest Pain Time Seen by Provider: 06/01/21 11:40 Source: patient, EMS, RN notes reviewed, old records reviewed Mode of arrival: EMS Limitations: no limitations - History of Present Illness Initial comments: Well-appearing 45-year-old female presents to the emergency room with complaints of lightheadedness and back pain. Patient states that she's been checking her blood pressure and heart rate at home and found her heart rate was in the 40s to 50s. She has no history of slow heart rate. She does state that she was diagnosed with coronavirus 8 days ago with upper respiratory symptoms, cough and congestion. She does have a history of hypertension and takes metoprolol twice a day 25 mg was recently put on lisinopril. She states her blood pressure has been around 150 systolic at home. She denies any chest pain, difficulty breathing, shortness breath, fevers, nausea, vomiting or diarrhea. Her oxygen saturation on pulse oximeter home has been 97-99%. -: days(s) (1) Location: back Severity scale (1-10): 0 Consistency: now resolved Improves with: none Worsens with: none Associated Symptoms: other (bradycardia, lightheaded) - Related Data Home Medications Medication Instructions Recorded Confirmed Biotin 10,000 mcg PO DAILY 10/31/20 06/01/21 Cholecalciferol [Vitamin D3 (25 50 mcg PO DAILY 10/31/20 06/01/21 Mcg = 1000 Iu)] Estradiol [Estrace] 1 mg PO DAILY 10/31/20 06/01/21 Multivitamins, Thera [Multivitamin 1 tab PO DAILY 10/31/20 06/01/21 (formulary)] [place]-3 Fatty Acids/Fish Oil [Fish 1 cap PO DAILY 10/31/20 06/01/21 Oil 1,000 mg Softgel] Omeprazole 20 mg PO BID 10/31/20 06/01/21 FLUoxetine HCL [PROzac] 10 mg PO DAILY 06/01/21 06/01/21 FLUoxetine HCL [PROzac] 20 mg PO DAILY 06/01/21 06/01/21 Loratadine 10 mg PO DAILY PRN 06/01/21 06/01/21 lisinopriL [Zestril] 2.5 mg PO DAILY 06/01/21 06/01/21 Previous Rx's Medication Instructions Recorded Metoprolol Tartrate [Lopressor] 25 mg PO BID 30 Days #60 tab 11/01/20 Allergies Allergy/AdvReac Type Severity Reaction Status Date / Time Sulfa (Sulfonamide Allergy Rash/Hives Verified 06/01/21 13:15 Antibiotics) Review of Systems ROS Statement: Those systems with pertinent positive or pertinent negative responses have been documented in the HPI. ROS Other: All systems not noted in ROS Statement are negative. Past Medical History Past Medical History: Hypertension Additional Past Medical History / Comment(s): ovarian cysts, kidney stones, History of Any Multi-Drug Resistant Organisms: None Reported Past Surgical History: Hysterectomy Additional Past Surgical History / Comment(s): heital hernia removal, Past Anesthesia/Blood Transfusion Reactions: No Reported Reaction Past Psychological History: Anxiety Smoking Status: Current every day smoker Past Alcohol Use History: Rare Past Drug Use History: Marijuana - Past Family History Father Family Medical History: Coronary Artery Disease (CAD), Myocardial Infarction (MO) Additional Family Medical History / Comment(s): Father had his first MO at the age of 46yrs. He has had CABG Mother Family Medical History: Myocardial Infarction (MO) Additional Family Medical History / Comment(s): Mother of a MO at the age of 49 yrs. General Exam Limitations: no limitations General appearance: alert, in no apparent distress Head exam: Present: atraumatic, normocephalic, normal inspection Eye exam: Present: normal appearance Respiratory exam: Present: normal lung sounds bilaterally. Absent: respiratory distress, wheezes, rales, rhonchi, stridor, chest wall tenderness, accessory muscle use, decreased breath sounds Cardiovascular Exam: Present: normal rhythm, bradycardia, normal heart sounds. Absent: JVD Extremities exam: Present: normal inspection, full ROM, normal capillary refill. Absent: tenderness, pedal edema, joint swelling, calf tenderness Back exam: Present: normal inspection, full ROM. Absent: tenderness, CVA ten derness (R), CVA tenderness (L), rash noted Neurological exam: Present: alert, oriented X3 Psychiatric exam: Present: normal affect, normal mood Skin exam: Present: warm, dry, intact, normal color. Absent: rash, cyanosis, di aphoretic Course Vital Signs 06/01/21 06/01/21 06/01/21 11:15 13:30 15:35 Temperature 98.7 F 98.0 F Pulse Rate 52 L 61 59 L Respiratory 20 20 20 Rate Blood Pressure 156/77 144/71 139/68 O2 Sat by Pulse 99 100 97 Oximetry EKG Findings - EKG Results: EKG: sinus rhythm EKG shows: bradycardia (Ventricular rate of 47, TX interval 0.146, QRS 0.70, QTC 0.415) Medical Decision Making - Medical Decision Making 45-year-old female presents with complaints of lightheadedness and back pain. Sh e states her heart rate at home has been in the 50s. She was diagnosed with coronavirus 8 days ago. She does have a history of hypertension and takes metoprolol twice a day 25 mg. CBC shows no evidence of leukocytosis, troponin is negative at 0.012, EKG no ST elevation or ectopy. Coronavirus is positive. Chest x-ray shows no acute cardiopulmonary process. No evidence of pleural effusion. Patient remained bradycardic in the emergency room. This is likely related to her metoprolol and she will be placed in observation and monitored with cardiology consult. Case was discussed with Dr. Zaragoza - Lab Data Result diagrams: 06/01/21 11:35 06/01/21 11:35 Lab Results 06/01/21 06/01/21 06/01/21 Range/Units 11:35 11:35 11:35 WBC 7.2 (3.8-10.6) k/uL RBC 4.93 (3.80-5.40) m/uL Hgb 15.0 (11.4-16.0) gm/dL Hct 42.9 (34.0-46.0) % MCV 87.0 (80.0-100.0) fL MCH 30.5 (25.0-35.0) pg MCHC 35.1 (31.0-37.0) g/dL RDW 12.9 (11.5-15.5) % Plt Count 351 (150-450) k/uL MPV 7.8 Neutrophils % 69 % Lymphocytes % 24 % Monocytes % 4 % Eosinophils % 2 % Basophils % 0 % Neutrophils # 5.0 (1.3-7.7) k/uL Lymphocytes # 1.7 (1.0-4.8) k/uL Monocytes # 0.3 (0-1.0) k/uL Eosinophils # 0.1 (0-0.7) k/uL Basophils # 0.0 (0-0.2) k/uL PT 11.1 (9.0-12.0) sec INR 1.0 (<1.2) APTT 21.9 L (22.0-30.0) sec Sodium 139 (137-145) mmol/L Potassium 3.6 (3.5-5.1) mmol/L Chloride 109 H (98-107) mmol/L Carbon Dioxide 22 (22-30) mmol/L Anion Gap 8 mmol/L BUN 6 L (7-17) mg/dL Creatinine 0.63 (0.52-1.04) mg/dL Est GFR (CKD-EPI)AfAm >90 (>60 ml/min/1.73 sqM) Est GFR (CKD-EPI)NonAf >90 (>60 ml/min/1.73 sqM) Glucose 133 H (74-99) mg/dL Calcium 9.8 (8.4-10.2) mg/dL Magnesium 1.9 (1.6-2.3) mg/dL Total Bilirubin 0.7 (0.2-1.3) mg/dL AST 26 (14-36) U/L ALT 13 (4-34) U/L Alkaline Phosphatase 54 (38-126) U/L Troponin I (0.000-0.034) ng/mL Total Protein 7.3 (6.3-8.2) g/dL Albumin 4.2 (3.5-5.0) g/dL Coronavirus (PCR) (Not Detectd) 06/01/21 06/01/21 Range/Units 11:35 11:35 WBC (3.8-10.6) k/uL RBC (3.80-5.40) m/uL Hgb (11.4-16.0) gm/dL Hct (34.0-46.0) % MCV (80.0-100.0) fL MCH (25.0-35.0) pg MCHC (31.0-37.0) g/dL RDW (11.5-15.5) % Plt Count (150-450) k/uL MPV Neutrophils % % Lymphocytes % % Monocytes % % Eosinophils % % Basophils % % Neutrophils # (1.3-7.7) k/uL Lymphocytes # (1.0-4.8) k/uL Monocytes # (0-1.0) k/uL Eosinophils # (0-0.7) k/uL Basophils # (0-0.2) k/uL PT (9.0-12.0) sec INR (<1.2) APTT (22.0-30.0) sec Sodium (137-145) mmol/L Potassium (3.5-5.1) mmol/L Chloride (98-107) mmol/L Carbon Dioxide (22-30) mmol/L Anion Gap mmol/L BUN (7-17) mg/dL Creatinine (0.52-1.04) mg/dL Est GFR (CKD-EPI)AfAm (>60 ml/min/1.73 sqM) Est GFR (CKD-EPI)NonAf (>60 ml/min/1.73 sqM) Glucose (74-99) mg/dL Calcium (8.4-10.2) mg/dL Magnesium (1.6-2.3) mg/dL Total Bilirubin (0.2-1.3) mg/dL AST (14-36) U/L ALT (4-34) U/L Alkaline Phosphatase (38-126) U/L Troponin I <0.012 (0.000-0.034) ng/mL Total Protein (6.3-8.2) g/dL Albumin (3.5-5.0) g/dL Coronavirus (PCR) Detected A (Not Detectd) Disposition Clinical Impression: Bradycardia, COVID Disposition: ADMITTED IP TO THIS [facility] Decision Date: 06/01/21 Decision Time: 12:51
[2021-06-01 11:55] LABS: Basophils % (A) 0 %; Eosinophils # (A) 0.1 k/uL (0-0.7); Eosinophils % (A) 2 %; HCT 42.9 % (34.0-46.0); Lymphocytes # (A) 1.7 k/uL (1.0-4.8); Lymphocytes % (A) 24 %; MCH 30.5 pg (25.0-35.0); MCHC 35.1 g/dL (31.0-37.0); Mean Platelet Volume 7.8; Monocytes # (A) 0.3 k/uL (0-1.0); Monocytes % (A) 4 %; Neutrophils % (A) 69 %; Platelet Count 351 k/uL (150-450); RBC 4.93 m/uL (3.80-5.40); RDW 12.9 % (11.5-15.5); WBC 7.2 k/uL (3.8-10.6)
--- NOTE | 2021-06-01 11:57 | XR ---
EXAMINATION TYPE: XR chest 2V DATE OF EXAM: 06/01/2021 COMPARISON: 10/31/2020 HISTORY: 45-year-old female with chest pain, bradycardia TECHNIQUE: PA and lateral views FINDINGS: Heart normal size. Aorta and pulmonary vasculature within normal limits. Mild hyperinflation may rela te to depth of inspiration. Some strandy atelectasis in the lower lungs. No consolidation or pleural effusion. Bilateral nipple bars. IMPRESSION: No acute cardiopulmonary process.
[2021-06-01 12:09] LABS: ALT 13 U/L (4-34); AST 26 U/L (14-36); African American GFR (CKD) >90 (>60 ml/min/1.73 sqM); Albumin 4.2 g/dL (3.5-5.0); Alkaline Phosphatase 54 U/L (38-126); Anion Gap 8 mmol/L; Blood Urea Nitrogen 6 mg/dL (7-17); Calcium 9.8 mg/dL (8.4-10.2); Carbon Dioxide 22 mmol/L (22-30); Chloride 109 mmol/L (98-107); Glucose 133 mg/dL (74-99); Magnesium 1.9 mg/dL (1.6-2.3); Non-African American GFR(CKD) >90 (>60 ml/min/1.73 sqM); Potassium 3.6 mmol/L (3.5-5.1); Prothrombin Time 11.1 sec (9.0-12.0); Sodium 139 mmol/L (137-145); Total Bilirubin 0.7 mg/dL (0.2-1.3); Total Protein 7.3 g/dL (6.3-8.2)
[2021-06-01 12:21] LABS: Partial Thromboplastin Time 21.9 sec (22.0-30.0)
[2021-06-01] MEDS ORDERED: IBUPROFEN 400 MG TAB PO PRN (12:46)
[2021-06-01] MEDS ORDERED: ACETAMINOPHEN TAB 325 MG TAB PO PRN (12:46)
[2021-06-01] MEDS ORDERED: NALOXONE 0.4 MG/ML 1 ML VIAL IV PRN (12:46)
[2021-06-01 14:28] LABS: HCG,Qualitative Serum Not Detected
[2021-06-01] MEDS ORDERED: LORATADINE 10 MG TAB PO PRN (14:55)
[2021-06-01] MEDS: PANTOPRAZOLE 40 MG TABLET PO SCH (19:55)
[2021-06-01 23:46] VITALS: RESP 16
--- NOTE | 2021-06-02 06:23 | P.HPIM ---
History of Present Illness this is a pleasant 45 years old female with past medical history of hypertension. Recent diagnosis with covid, kidney stone, cigarette smoker. She is status post hysterectomy in 2015 She presents because of dizziness. She was checking her heart rate at home it was in 40s. Her doctor recently prescribed her lisinopril as well but her blood pressure is been fine. Patient states that her dizziness is like presyncope and associated with lightheadedness. She denies current chest pain although sometimes she has some chest heaviness oriented no dyspnea and no coughing. No vomiting but she has some diarrhea about twice a day yesterday and with some mild abdominal pain on the right side lower abdomen She smokes about 3 cigarettes a day and she was counseled to quit and she agrees. She denies alcohol or illicit drugs She is bradycardic with heart rate 52, rest of Vitas looks stable with a blood pressure 156/77. Labs including CBC, INR, BMP, liver enzymes and troponin areunremarkable Coronavirus detected. Chest x-ray: No acute process. Patient had an echocardiogram last year on 11/01/2020 showing ejection fraction of 55-60% Review of Systems Review of systems CONSTITUTIONAL: No fever, no malaise, no fatigue. HEENT: No recent visual problems or hearing problems. Denied any sore throat. CARDIOVASCULAR: No orthopnea, PND, no palpitations, no syncope. PULMONARY: No shortness of breath, no cough, no hemoptysis. GASTROINTESTINAL: no nausea, no vomiting,. Normoactive bowel sounds. NEUROLOGICAL: No headaches, no weakness, no numbness. HEMATOLOGICAL: Denies any bleeding or petechiae. GENITOURINARY: Denies any burning micturition, frequency, or urgency. MUSCULOSKELETAL/RHEUMATOLOGICAL: Denies any joint pain, swelling, or any muscle pain. ENDOCRINE: Denies any polyuria or polydipsia. Past Medical History Past Medical History: Hypertension Additional Past Medical History / Comment(s): ovarian cysts, kidney stones, History of Any Multi-Drug Resistant Organisms: None Reported Past Surgical History: Hysterectomy Additional Past Surgical History / Comment(s): heital hernia removal, Past Anesthesia/Blood Transfusion Reactions: No Reported Reaction Past Psychological History: Anxiety Smoking Status: Current every day smoker Past Alcohol Use History: Rare Past Drug Use History: Marijuana - Past Family History Father Family Medical History: Coronary Artery Disease (CAD), Myocardial Infarction (AR) Additional Family Medical History / Comment(s): Father had his first AR at the age of 46yrs. He has had CABG Mother Family Medical History: Myocardial Infarction (AR) Additional Family Medical History / Comment(s): Mother of a AR at the age of 49 yrs. Medications and Allergies Home Medications Medication Instructions Recorded Confirmed Type Biotin 10,000 mcg PO DAILY 10/31/20 06/01/21 History Cholecalciferol [Vitamin D3 (25 50 mcg PO DAILY 10/31/20 06/01/21 History Mcg = 1000 Iu)] Estradiol [Estrace] 1 mg PO DAILY 10/31/20 06/01/21 History Multivitamins, Thera [Multivitamin 1 tab PO DAILY 10/31/20 06/01/21 History (formulary)] [place]-3 Fatty Acids/Fish Oil [Fish 1 cap PO DAILY 10/31/20 06/01/21 History Oil 1,000 mg Softgel] Omeprazole 20 mg PO BID 10/31/20 06/01/21 History Metoprolol Tartrate [Lopressor] 25 mg PO BID 30 Days #60 tab 11/01/20 06/01/21 Rx FLUoxetine HCL [PROzac] 10 mg PO DAILY 06/01/21 06/01/21 History FLUoxetine HCL [PROzac] 20 mg PO DAILY 06/01/21 06/01/21 History Loratadine 10 mg PO DAILY PRN 06/01/21 06/01/21 History lisinopriL [Zestril] 2.5 mg PO DAILY 06/01/21 06/01/21 History Allergies Allergy/AdvReac Type Severity Reaction Status Date / Time Sulfa (Sulfonamide Allergy Rash/Hives Verified 06/01/21 13:15 Antibiotics) Physical Exam Vitals: Vital Signs Temp Pulse Resp BP Pulse Ox 06/01/21 11:15 98.7 F 52 L 20 156/77 99 Intake and Output 05/31/21 06/01/21 06/01/21 22:59 06:59 14:59 Other: Weight 67.132 kg GENERAL: The patient is alert and oriented x3, not in any acute distress. Well developed, well nourished. HEENT: Pupils are round and equally reacting to light. EOMI. No scleral icterus. No conjunctival pallor. Normocephalic, atraumatic. No pharyngeal erythema. No thyromegaly. CARDIOVASCULAR: S1 and S2 present. No murmurs, rubs, or gallops. PULMONARY: Chest is clear to auscultation, no wheezing or crackles. ABDOMEN: Soft, nontender, nondistended, normoactive bowel sounds. No palpable organomegaly. MUSCULOSKELETAL: No joint swelling or deformity. EXTREMITIES: No cyanosis, clubbing, or pedal edema. NEUROLOGICAL: Gross neurological examination did not reveal any focal deficits. SKIN: No rashes. no petechiae. Results CBC & Chem 7: 06/01/21 11:35 06/01/21 11:35 Labs: Abnormal Lab Results - Last 24 Hours (Table) 06/01/21 06/01/21 06/01/21 Range/Units 11:35 11:35 11:35 APTT 21.9 L (22.0-30.0) sec Chloride 109 H (98-107) mmol/L BUN 6 L (7-17) mg/dL Glucose 133 H (74-99) mg/dL Coronavirus (PCR) Detected A (Not Detectd) Assessment and Plan Assessment: Symptomatic bradycardia with dizziness and lightheadedness COVID-19 infection with no pneumonia or hypoxia nonspecific mild abdominal pain with mild diarrhea could be mild gastroenteritis most likely related to call with infection Hypertension Nicotine dependence History of Kidney stone History of hysterectomy Plan: This is a pleasant 45 result female who presents with dizziness and bradycardia Continue with telemetry Hold metoprolol Cardiology consult Check TSH Continue with vitamin for her Covid infection Labs and medication were reviewed.. Continue same treatment. Continue with symptomatic treatment. Resume home medication. Monitor lytes and vitals. DVT and GI prophylaxis. Further recommendationsas per clinical course of the patient DVT prophylaxis: Subcutaneous heparin GI Prophylaxis: Pepcid
[2021-06-02] MEDS: PANTOPRAZOLE 40 MG TABLET PO SCH (08:07)
[2021-06-02] MEDS: NICOTINE 14MG/24HR PATCH TRANSDERM SCH ×2 (08:07→08:08)
[2021-06-02 08:34] VITALS: BP 155/78; PULSE 75; TEMP 98.2
--- NOTE | 2021-06-02 08:59 | P.CRDCN ---
History of Present Illness History of present illness: This is a pleasant 45-year-old female past medical history significant for hypertension, chronic nicotine dependence, hyperlipidemia, gestational diabetes, marijuana use. She also has a significant family history of premature CAD with her mother who at the age of 49 from an ID and her father who had his first ID in his 40s and subsequent CABG. She follows in the office with Dr. Ferrari. We have been asked to see in consultation for bradycardia. Patient states she developed symptoms of body aches, flu like symptoms on 04/20/2021. She states she took an at-home Covid 19 test which was positive. She also states that she went to an urgent care and had a Covid-19 PCT test completed which was also positive. She states that she had symptoms of cough, congestion, rhinorrhea, diarrhea. Her symptoms have slightly improved. She states yesterday she had an episodes of lightheadedness and dizziness. With ambulation and also resting. She states she took her blood pressure and it was SBP 130s, but her heart rate was 51. She states she had some heaviness in her chest and fe lt her anxiety increase. She presented to the emergency department for further evaluation. She denies any chest pain, palpitations. shortness of breath, syncope, loss of consciousness, nausea, vomiting, fever, chills. Patient does not have any history of coronary artery disease, ID, stroke, diabetes. DIAGNOSTICS EKG reveals sinus bradycardia, heart rate 47, no stenotic and ST-T wave abnormalities. Telemetry tracings indicate sinus mechanism HR improved 50-60s 11/01/2020 Echocardiogram revealed EF 55-60%, trace mitral regurgitation, trace tricuspid regurgitation. Stress echocardiogram test on 11/05/20 which was negative for stress induced ischemia. Laboratory reviewed, troponin negative, Covid 19 positive, CBC unremarkable, sodium 139, potassium 3.6, BUN 6, serum crit 0.6, magnesium 1.9 REVIEW OF SYSTEMS At the time of my exam: CONSTITUTIONAL: Denies fever or chills. CARDIOVASCULAR: Denies chest pain, Denies shortness of breath Denies orthopnea, PND or palpitations. RESPIRATORY: Denies cough. GASTROINTESTINAL: Positive epigastric pain, nausea and vomiting Denies diarrhea, constipation MUSCULOSKELETAL: Denies myalgias. NEUROLOGIC: Positive lightheadedness positive dizziness Denies numbness, tingling, headacbe or weakness. ENDOCRINE: Denies fatigue, weight change, polydipsia or polyurina. GENITOURINARY: Denies burning, hematuria or urgency with micturation. HEMATOLOGIC: Denies history of anemia or bleeding. PHYSICAL EXAMINATION Blood pressure 124/71, heart rate 65, afebrile, saturations greater than 92% on room air CONSTITUTIONAL: No apparent distress. HEENT: Head is normocephalic. Pupils are equal, round. Sclerae anicteric. Mucous membranes of the mouth are moist. No JVD. No carotid bruit. CHEST EXAMINATION: Lungs are clear to auscultation. No chest wall tenderness is noted on palpation or with deep breathing. HEART EXAMINATION: Regular rate and rhythm. S1, S2 heard. No murmurs, gallops or rub. ABDOMEN: Soft, nontender. Positive bowel sounds. EXTREMITIES: 2+ peripheral pulses, no lower extremity edema and no calf tenderness. SKIN: warm, dry NEUROLOGIC EXAMINATION: Patient is awake, alert and oriented x3. ASSESSMENT Sinus bradycardia COVID-19 infection History of Hypertension Chronic nicotine dependence History of Gestational diabetes Hyperlipidemia PLAN Patient with improvement in sinus bradycardia with holding of metoprolol. We will continue to hold metoprolol. Obtain 2D echocardiogram. Continue lisinopril From a cardiology perspective, if echocardiogram with no acute findings, patient is stable to be discharged home. Follow up with Dr. Ferrari outpatient Thank you kindly for this consultation. Nurse Practitioner note has been reviewed, I agree with a documented findings and plan of care. Patient was seen and examined. Past Medical History Past Medical History: Hypertension Additional Past Medical History / Comment(s): ovarian cysts, kidney stones, History of Any Multi-Drug Resistant Organisms: None Reported Past Surgical History: Hysterectomy Additional Past Surgical History / Comment(s): heital hernia removal, Past Anesthesia/Blood Transfusion Reactions: No Reported Reaction Past Psychological History: Anxiety Smoking Status: Current every day smoker Past Alcohol Use History: Rare Past Drug Use History: Marijuana - Past Family History Father Family Medical History: Coronary Artery Disease (CAD), Myocardial Infarction (ID) Additional Family Medical History / Comment(s): Father had his first ID at the age of 46yrs. He has had CABG Mother Family Medical History: Myocardial Infarction (ID) Additional Family Medical History / Comment(s): Mother of a ID at the age of 49 yrs. Medications and Allergies Home Medications Medication Instructions Recorded Confirmed Type Biotin 10,000 mcg PO DAILY 10/31/20 06/01/21 History Cholecalciferol [Vitamin D3 (25 50 mcg PO DAILY 10/31/20 06/01/21 History Mcg = 1000 Iu)] Estradiol [Estrace] 1 mg PO DAILY 10/31/20 06/01/21 History Multivitamins, Thera [Multivitamin 1 tab PO DAILY 10/31/20 06/01/21 History (formulary)] [place]-3 Fatty Acids/Fish Oil [Fish 1 cap PO DAILY 10/31/20 06/01/21 History Oil 1,000 mg Softgel] Omeprazole 20 mg PO BID 10/31/20 06/01/21 History FLUoxetine HCL [PROzac] 10 mg PO DAILY 06/01/21 06/01/21 History FLUoxetine HCL [PROzac] 20 mg PO DAILY 06/01/21 06/01/21 History Loratadine 10 mg PO DAILY PRN 06/01/21 06/01/21 History lisinopriL [Zestril] 2.5 mg PO DAILY 06/01/21 06/01/21 History Allergies Allergy/AdvReac Type Severity Reaction Status Date / Time Sulfa (Sulfonamide Allergy Rash/Hives Verified 06/01/21 13:15 Antibiotics) Physical Exam Vitals: Vital Signs Temp Pulse Pulse Pulse Resp BP BP 06/02/21 07:00 98.2 F 75 16 155/78 06/02/21 02:39 98.1 F 65 16 06/02/21 02:15 89 61 16 06/01/21 23:30 89 06/01/21 21:07 97.8 F 60 16 06/01/21 19:55 61 20 06/01/21 15:35 59 L 20 139/68 06/01/21 15:00 98.4 F 61 18 159/82 06/01/21 13:30 98.0 F 61 20 144/71 06/01/21 11:15 98.7 F 52 L 20 156/77 BP Pulse Ox 06/02/21 07:00 98 06/02/21 02:39 124/71 100 06/02/21 02:15 06/01/21 23:30 166/74 100 06/01/21 21:07 143/76 98 06/01/21 19:55 06/01/21 15:35 97 06/01/21 15:00 97 06/01/21 13:30 100 06/01/21 11:15 99 Intake and Output 06/01/21 06/02/21 06/02/21 22:59 06:59 14:59 Other: Voiding Method Toilet Toilet # Voids 1 2 Weight 67.132 kg Results 06/01/21 11:35 06/01/21 11:35 Cardiac Enzymes 06/01/21 06/01/21 Range/Units 11:35 11:35 AST 26 (14-36) U/L Troponin I <0.012 (0.000-0.034) ng/mL Coagulation 06/01/21 Range/Units 11:35 PT 11.1 (9.0-12.0) sec APTT 21.9 L (22.0-30.0) sec CBC 06/01/21 Range/Units 11:35 WBC 7.2 (3.8-10.6) k/uL RBC 4.93 (3.80-5.40) m/uL Hgb 15.0 (11.4-16.0) gm/dL Hct 42.9 (34.0-46.0) % Plt Count 351 (150-450) k/uL Comprehensive Metabolic Panel 06/01/21 Range/Units 11:35 Sodium 139 (137-145) mmol/L Potassium 3.6 (3.5-5.1) mmol/L Chloride 109 H (98-107) mmol/L Carbon Dioxide 22 (22-30) mmol/L BUN 6 L (7-17) mg/dL Creatinine 0.63 (0.52-1.04) mg/dL Glucose 133 H (74-99) mg/dL Calcium 9.8 (8.4-10.2) mg/dL AST 26 (14-36) U/L ALT 13 (4-34) U/L Alkaline Phosphatase 54 (38-126) U/L Total Protein 7.3 (6.3-8.2) g/dL Albumin 4.2 (3.5-5.0) g/dL Current Medications Generic Name Dose Route Start Last Admin Trade Name Freq PRN Reason Stop Dose Admin Acetaminophen 650 mg 06/01/21 12:46 06/01/21 23:15 Acetaminophen Tab 325 Mg Tab PO 650 mg Q6HR PRN Administration Mild Pain or Fever > 100.5 Cholecalciferol 50 mcg 06/02/21 09:00 06/02/21 08:07 Cholecalciferol 25 Mcg (1000 Iu) Tablet PO 50 mcg DAILY JUAN M Administration Estradiol 1 mg 06/02/21 09:00 06/02/21 08:07 Estradiol 0.5 Mg Tab PO 1 mg DAILY JUAN M Administration Famotidine 20 mg 06/02/21 09:00 06/02/21 08:07 Famotidine 20 Mg/2 Ml Vial IV 20 mg Q12HR JUAN M Administration Fluoxetine HCl 10 mg 06/02/21 09:00 06/02/21 08:07 Fluoxetine Hcl 10 Mg Cap PO 10 mg DAILY JUAN M Administration Fluoxetine HCl 20 mg 06/02/21 09:00 06/02/21 08:07 Fluoxetine Hcl 20 Mg Cap PO 20 mg DAILY JUAN M Administration Heparin Sodium (Porcine) 5,000 unit 06/02/21 09:00 06/02/21 08:06 Heparin Sodium,Porcine/Pf 5,000 Unit/0.5 Ml Syringe SQ 5,000 unit Q12HR JUAN M Administration Ibuprofen 400 mg 06/01/21 12:46 Ibuprofen 400 Mg Tab PO Q6HR PRN Mild Pain or Fever > 100.5 Lisinopril 2.5 mg 06/02/21 09:00 06/02/21 08:07 Lisinopril 2.5 Mg Tab PO 2.5 mg DAILY JUAN M Administration Loratadine 10 mg 06/01/21 14:55 Loratadine 10 Mg Tab PO DAILY PRN Allergy Symptoms Multivitamins 1 each 06/02/21 09:00 06/02/21 08:07 Multivitamins, Thera 1 Each Tab PO 1 each DAILY JUAN M Administration Naloxone HCl 0.2 mg 06/01/21 12:46 Naloxone 0.4 Mg/Ml 1 Ml Vial IV Q2M PRN Opioid Reversal Nicotine 1 patch 06/02/21 09:00 06/02/21 08:08 Nicotine 14mg/24hr Patch TRANSDERM Not Given DAILY JUAN M Pantoprazole Sodium 40 mg 06/01/21 21:00 06/02/21 08:07 Pantoprazole 40 Mg Tablet PO 40 mg BID JUAN M Administration Intake and Output 06/01/21 06/02/21 06/02/21 22:59 06:59 14:59 Other: Voiding Method Toilet Toilet # Voids 1 2 Weight 67.132 kg 06/01/21 11:35 06/01/21 11:35
[2021-06-02] MEDS ORDERED: MULTIVITAMINS, THERA 1 EACH TAB PO SCH (09:00)
[2021-06-02] MEDS ORDERED: CHOLECALCIFEROL 25 MCG (1000 IU) TABLET PO SCH (09:00)
[2021-06-02] MEDS ORDERED: FAMOTIDINE 20 MG/2 ML VIAL IV SCH (09:00)
[2021-06-02] MEDS ORDERED: HEPARIN SODIUM,PORCINE/PF 5,000 UNIT/0.5 ML SYRINGE SQ SCH (09:00)
[2021-06-02] MEDS ORDERED: FLUoxetine HCL 10 MG CAP PO SCH (09:00)
[2021-06-02] MEDS ORDERED: FLUoxetine HCL 20 MG CAP PO SCH (09:00)
--- NOTE | 2021-06-02 11:44 | ECHOF ---
Referral Reason:bradycardia, LV function MEASUREMENTS -------- HEIGHT: 157.5 cm WEIGHT: 67.1 kg BP: 155/78 IVSd: 1.0 cm (0.6 - 1.1) LVIDd: 3.3 cm (3.9 - 5.3) LVPWd: 1.2 cm (0.6 - 1.1) IVSs: 1.3 cm LVIDs: 2.0 cm LVPWs: 1.6 cm RAP: 5.00 mmHg RVSP: 14.22 mmHg FINDINGS -------- Sinus rhythm. This was a technically adequate study. The left ventricular size is normal. Left ventricular wall thickness is normal. Overall left vent ricular systolic function is normal with, an EF between 55 - 60 %. There is no evidence of aortic regurgitation. There is no evidence of aortic stenosis. No mitral regurgitation. Mild tricuspid regurgitation present. There is no evidence of pulmonary hypertension. The right v entricular systolic pressure, as measured by Doppler, is 14.22mmHg. There is no pericardial effusion. CONCLUSIONS -------- 1. The left ventricular size is normal. 2. Left ventricular wall thickness is normal. 3. Overall left ventricular systolic function is normal with, an EF between 55 - 60 %. 4. Mild tricuspid regurgitation present. AWAKE OVERNIGHT COUNSELOR: Ruthy Leslie RDCS
[2021-06-02 14:39] VITALS: BMI 27.1
--- NOTE | 2021-06-03 01:34 | P.DS ---
Providers Date of admission: 06/01/21 12:47 Attending physician: Maikel Minor Consults: 06/01/21 12:49 Consult Physician Routine Consulting Provider: Kade Guajardo Consult Reason/Comments: bradycardia Do you want consulting provider notified?: Yes Primary care physician: [facility] Hospital Course: Diagnoses: Symptomatic bradycardia with dizziness and lightheadedness. And improved after stopping metoprolol and cleared by branch credit counselor for discharge COVID-19 infection with no pneumonia or hypoxia nonspecific mild abdominal pain with mild diarrhea could be mild gastroenteritis most likely related to call with infection Hypertension Nicotine dependence History of Kidney stone History of hysterectomy Hospital course: this is a pleasant 45 years old female with past medical history of hype rtension. Recent diagnosis with covid, kidney stone, cigarette smoker. She is status post hysterectomy in 2014 She presents because of dizziness. She was checking her heart rate at home it was in 40s. She was on metoprolol at home which is held, within 24 hours her heart rate improved and was in 60s. Fire Technician evaluated the patient and cleared her on discharge with normal echocardiogram With ejection fraction of 55-60%. Patient was asymptomatic upon discharge. Problems and management plan were discussed with the patient and he verbalized understanding and acceptance Patient was found stable and can be discharged home however he needs follow-up as an outpatient. Patient was instructed to follow up with FARIBA Arias within one week and patient agrees Patient was instructed to follow up with her branch credit counselor Dr. Ferrari in 2 weeks and she agrees to call and make appointment and also she wants staff to help her with appointment is possible Physical exam Gen: patient is a AAOx3, no distress CVS: S1-S2, RRR, no murmur Lungs: B/L CTA, no wheezing Abdomen: soft, no distention, no tenderness, positive bowel sounds Extremity: no leg edema or induration Time spent more than 35 minutes Patient Condition at Discharge: Good Plan - Discharge Summary Discharge Rx Participant: No New Discharge Prescriptions: New Acetaminophen Tab [Tylenol] 650 mg PO Q6HR PRN tab PRN Reason: Mild Pain Or Fever > 100.5 Continue [place]-3 Fatty Acids/Fish Oil [Fish Oil 1,000 mg Softgel] 1 cap PO DAILY FLUoxetine HCL [PROzac] 20 mg PO DAILY lisinopriL [Zestril] 2.5 mg PO DAILY Multivitamins, Thera [Multivitamin (formulary)] 1 tab PO DAILY Estradiol [Estrace] 1 mg PO DAILY Omeprazole 20 mg PO BID Cholecalciferol [Vitamin D3 (25 Mcg = 1000 Iu)] 50 mcg PO DAILY Biotin 10,000 mcg PO DAILY Loratadine 10 mg PO DAILY PRN PRN Reason: Allergy Symptoms FLUoxetine HCL [PROzac] 10 mg PO DAILY Discontinued Metoprolol Tartrate [Lopressor] 25 mg PO BID 30 Days #60 tab Discharge Medication List Biotin 10,000 mcg PO DAILY 10/31/20 [History] Cholecalciferol [Vitamin D3 (25 Mcg = 1000 Iu)] 50 mcg PO DAILY 10/31/20 [History] Estradiol [Estrace] 1 mg PO DAILY 10/31/20 [History] Multivitamins, Thera [Multivitamin (formulary)] 1 tab PO DAILY 10/31/20 [History] [place]-3 Fatty Acids/Fish Oil [Fish Oil 1,000 mg Softgel] 1 cap PO DAILY 10/31/20 [History] Omeprazole 20 mg PO BID 10/31/20 [History] FLUoxetine HCL [PROzac] 10 mg PO DAILY 06/01/21 [History] FLUoxetine HCL [PROzac] 20 mg PO DAILY 06/01/21 [History] Loratadine 10 mg PO DAILY PRN 06/01/21 [History] lisinopriL [Zestril] 2.5 mg PO DAILY 06/01/21 [History] Acetaminophen Tab [Tylenol] 650 mg PO Q6HR PRN tab 06/02/21 [Rx] Follow up Appointment(s)/Referral(s): Marcin Ferrari MD [STAFF PHYSICIAN] - 06/19/21 4:00 pm (Appointment at the [facility] Location. [address]) [place] NPC [Nurse Practitioner] - 1-2 days Patient Instructions/Handouts: How to Stop Smoking (DC) Activity/Diet/Wound Care/Special Instructions: Heart healthy diet Activity is restricted till you see your doctor Discharge Disposition: HOME SELF-CARE
== END 2021-06-02 14:28 | disposition home or self-care (01) ==
LOC: EC 11:04 → 6NMEDSUR 12:47
PROVIDERS: ADMIT Internal Medicine; ATTEND Internal Medicine
DX: R00.1 Bradycardia, unspecified (principal); R42 Dizziness and giddiness; U07.1 COVID-19; R10.9 Unspecified abdominal pain; R19.7 Diarrhea, unspecified; I10 Essential (primary) hypertension; F17.210 Nicotine dependence, cigarettes, uncomplicated; E78.5 Hyperlipidemia, unspecified; R05.9 Cough, unspecified; R07.89 Other chest pain; I07.1 Rheumatic tricuspid insufficiency; M54.9 Dorsalgia, unspecified; R10.13 Epigastric pain; R09.81 Nasal congestion; J98.11 Atelectasis; R11.2 Nausea with vomiting, unspecified; F41.9 Anxiety disorder, unspecified; N83.209 Unspecified ovarian cyst, unspecified side; Z79.890 Hormone replacement therapy; Z79.899 Other long term (current) drug therapy; Z88.2 Allergy status to sulfonamides; Z71.6 Tobacco abuse counseling; Z87.442 Personal history of urinary calculi; Z86.32 Personal history of gestational diabetes; Z95.1 Presence of aortocoronary bypass graft; Z90.710 Acquired absence of both cervix and uterus; Z82.49 Family history of ischemic heart disease and other diseases of the circulatory system
CPT/HCPCS: 96372; 96374; 96361; 99285; 36415; 93005; 93308; 80053; 84443; 83735; 84484; 85025; 85610; 85730; 84703; 87635; 71046; G0378 ×2; J1644

== ENCOUNTER 2021-06-09 11:12 | Emergency (ER) | payer OTHER ==
[2021-06-09 11:17] VITALS: TEMP 98.1
[2021-06-09] MEDS ORDERED: SODIUM CHLORIDE 0.9% 1,000 ML IV STA (11:44)
--- NOTE | 2021-06-09 11:52 | ED ---
General Adult HPI - General Chief complaint: Back Pain/Injury Stated complaint: SOB/Back Pain Time Seen by Provider: 06/09/21 11:25 Source: patient Mode of arrival: ambulatory Limitations: no limitations - History of Present Illness Initial comments: This 45-year-old female with past medical history of kidney stones presents emergency Department with shortness of breath and right flank pain. Patient states she has a positive for COVID-19 on May 26 and has felt better up until 2 days ago when she began having back pain and episodic shortness of breath that comes and goes. Patient states her pain is worse with lying down and movement and states she does get more short of breath with increased activity. Patient states she has noticed increase in urgency in urination but denies any blood in her urine or burning with urination. Patient denies any chest pain, abdominal pain, nausea, vomiting, fever, headache, change in bowel, change in appetite, change in vision. - Related Data Home Medications Medication Instructions Recorded Confirmed Biotin 10,000 mcg PO DAILY 10/31/20 06/09/21 Cholecalciferol [Vitamin D3 (25 50 mcg PO DAILY 10/31/20 06/09/21 Mcg = 1000 Iu)] Estradiol [Estrace] 1 mg PO DAILY 10/31/20 06/09/21 Multivitamins, Thera [Multivitamin 1 tab PO DAILY 10/31/20 06/09/21 (formulary)] [place]-3 Fatty Acids/Fish Oil [Fish 1 cap PO DAILY 10/31/20 06/09/21 Oil 1,000 mg Softgel] Omeprazole 20 mg PO BID 10/31/20 06/09/21 FLUoxetine HCL [PROzac] 10 mg PO DAILY 06/01/21 06/09/21 FLUoxetine HCL [PROzac] 20 mg PO DAILY 06/01/21 06/09/21 Loratadine 10 mg PO DAILY PRN 06/01/21 06/09/21 lisinopriL [Zestril] 2.5 mg PO DAILY 06/01/21 06/09/21 Previous Rx's Medication Instructions Recorded Acetaminophen Tab [Tylenol] 650 mg PO Q6HR PRN tab 06/02/21 Allergies Allergy/AdvReac Type Severity Reaction Status Date / Time Sulfa (Sulfonamide Allergy Rash/Hives Verified 06/09/21 13:27 Antibiotics) Review of Systems ROS Statement: Those systems with pertinent positive or pertinent negative responses have been documented in the HPI. ROS Other: All systems not noted in ROS Statement are negative. Past Medical History Past Medical History: Hypertension Additional Past Medical History / Comment(s): ovarian cysts, kidney stones, History of Any Multi-Drug Resistant Organisms: None Reported Past Surgical History: Hysterectomy Additional Past Surgical History / Comment(s): heital hernia removal, Past Anesthesia/Blood Transfusion Reactions: No Reported Reaction Past Psychological History: Anxiety Smoking Status: Current every day smoker Past Alcohol Use History: Rare Past Drug Use History: Marijuana - Past Family History Father Family Medical History: Coronary Artery Disease (CAD), Myocardial Infarction (WI) Additional Family Medical History / Comment(s): Father had his first WI at the age of 46yrs. He has had CABG Mother Family Medical History: Myocardial Infarction (WI) Additional Family Medical History / Comment(s): Mother of a WI at the age of 49 yrs. General Exam Limitations: no limitations General appearance: alert, in no apparent distress, anxious Head exam: Present: atraumatic, normocephalic Eye exam: Present: PERRL, EOMI Pupils: Present: normal accommodation ENT exam: Present: mucous membranes moist Neck exam: Present: full ROM. Absent: tenderness, meningismus Respiratory exam: Present: normal lung sounds bilaterally. Absent: respiratory distress, wheezes, rales, rhonchi, stridor Cardiovascular Exam: Present: regular rate, normal rhythm, normal heart sounds. Absent: systolic murmur, diastolic murmur, rubs, gallop, clicks GI/Abdominal exam: Present: soft, normal bowel sounds. Absent: distended, tenderness, guarding, rebound, rigid Extremities exam: Present: full ROM. Absent: joint swelling, calf tenderness Back exam: Present: full ROM, CVA tenderness (R), paraspinal tenderness (Right thoracic paraspinal tenderness to palpation). Absent: CVA tenderness (L), vertebral tenderness Neurological exam: Present: alert, oriented X3, CN II-XII intact Psychiatric exam: Present: normal affect, normal mood Skin exam: Present: warm, dry, intact, normal color. Absent: rash Course Vital Signs 06/09/21 06/09/21 06/09/21 11:15 14:25 16:46 Temperature 98.1 F Pulse Rate 78 77 70 Respiratory 18 20 20 Rate Blood Pressure 135/73 145/76 130/84 O2 Sat by Pulse 99 100 99 Oximetry - Reevaluation(s) Reevaluation #1: 06/09/21 16:10 After receiving fluids, patient states her pain has significantly decreased in her back and that she does feel somewhat better. She is oxygenating at 100% on room air EKG Findings - EKG Comments: EKG Findings:: EKG impression: Sinus rhythm. Ventricular rate 60 bpm. RI interval 153. QRS duration 77. QT/QTc 418/419 Medical Decision Making - Medical Decision Making This 45-year-old female presents emergency Department with episodic shortness of breath and right-sided flank pain 2 days. Patient likely with musculoskeletal reproducible right back pain. Urine with ketones present, patient informed to stay hydrated. Chest x-ray without any acute abnormalities. D-dimer elevated and CTA chest was obtained with no acute abnormalities noted. CT abdomen and pelvis showed nonobstructive left nephrolithiasis. Cortical cyst present on the left kidney which patient was already aware of. Incidental nodule found on thyroid, informed patient follow-up with primary care for possible ultrasound. She was advised to keep taking oxygen at home and if ever dropped below 90% return to ER. Patient sent home to follow-up with primary care provider next 24- 48 hours. Strict return precautions were discussed. Patient verbally agreed to plan. Patient sent home in stable condition. Discussed by attending, Dr. De León - Lab Data Result diagrams: 06/09/21 12:32 06/09/21 12:32 Lab Results 06/09/21 06/09/21 06/09/21 Range/Units 12:32 12:32 12:32 WBC 7.1 (3.8-10.6) k/uL RBC 5.05 (3.80-5.40) m/uL Hgb 15.4 (11.4-16.0) gm/dL Hct 44.4 (34.0-46.0) % MCV 87.8 (80.0-100.0) fL MCH 30.6 (25.0-35.0) pg MCHC 34.8 (31.0-37.0) g/dL RDW 13.1 (11.5-15.5) % Plt Count 403 (150-450) k/uL MPV 7.8 Neutrophils % 65 % Lymphocytes % 27 % Monocytes % 5 % Eosinophils % 1 % Basophils % 1 % Neutrophils # 4.6 (1.3-7.7) k/uL Lymphocytes # 1.9 (1.0-4.8) k/uL Monocytes # 0.3 (0-1.0) k/uL Eosinophils # 0.1 (0-0.7) k/uL Basophils # 0.0 (0-0.2) k/uL PT 11.0 (9.0-12.0) sec INR 1.0 (<1.2) APTT 23.7 (22.0-30.0) sec D-Dimer 1.16 H (<0.60) mg/L FEU Sodium (137-145) mmol/L Potassium (3.5-5.1) mmol/L Chloride (98-107) mmol/L Carbon Dioxide (22-30) mmol/L Anion Gap mmol/L BUN (7-17) mg/dL Creatinine (0.52-1.04) mg/dL Est GFR (CKD-EPI)AfAm (>60 ml/min/1.73 sqM) Est GFR (CKD-EPI)NonAf (>60 ml/min/1.73 sqM) Glucose (74-99) mg/dL Plasma Lactic Acid Keshav (0.7-2.0) mmol/L Calcium (8.4-10.2) mg/dL Total Bilirubin (0.2-1.3) mg/dL AST (14-36) U/L ALT (4-34) U/L Alkaline Phosphatase (38-126) U/L Troponin I (0.000-0.034) ng/mL Total Protein (6.3-8.2) g/dL Albumin (3.5-5.0) g/dL Lipase (23-300) U/L Urine Color Yellow Urine Appearance Clear (Clear) Urine pH 6.5 (5.0-8.0) Ur Specific Nitro 1.018 (1.001-1.035) Urine Protein Negative (Negative) Urine Glucose (UA) Negative (Negative) Urine Ketones 2+ H (Negative) Urine Blood Negative (Negative) Urine Nitrite Negative (Negative) Urine Bilirubin Negative (Negative) Urine Urobilinogen <2.0 (<2.0) mg/dL Ur Leukocyte Esterase Negative (Negative) Coronavirus (PCR) (Not Detectd) 06/09/21 06/09/21 06/09/21 Range/Units 12:32 12:32 12:32 WBC (3.8-10.6) k/uL RBC (3.80-5.40) m/uL Hgb (11.4-16.0) gm/dL Hct (34.0-46.0) % MCV (80.0-100.0) fL MCH (25.0-35.0) pg MCHC (31.0-37.0) g/dL RDW (11.5-15.5) % Plt Count (150-450) k/uL MPV Neutrophils % % Lymphocytes % % Monocytes % % Eosinophils % % Basophils % % Neutrophils # (1.3-7.7) k/uL Lymphocytes # (1.0-4.8) k/uL Monocytes # (0-1.0) k/uL Eosinophils # (0-0.7) k/uL Basophils # (0-0.2) k/uL PT (9.0-12.0) sec INR (<1.2) APTT (22.0-30.0) sec D-Dimer (<0.60) mg/L FEU Sodium 141 (137-145) mmol/L Potassium 3.4 L (3.5-5.1) mmol/L Chloride 106 (98-107) mmol/L Carbon Dioxide 25 (22-30) mmol/L Anion Gap 10 mmol/L BUN 8 (7-17) mg/dL Creatinine 0.65 (0.52-1.04) mg/dL Est GFR (CKD-EPI)AfAm >90 (>60 ml/min/1.73 sqM) Est GFR (CKD-EPI)NonAf >90 (>60 ml/min/1.73 sqM) Glucose 94 (74-99) mg/dL Plasma Lactic Acid Keshav 1.4 (0.7-2.0) mmol/L Calcium 10.3 H (8.4-10.2) mg/dL Total Bilirubin 0.7 (0.2-1.3) mg/dL AST 24 (14-36) U/L ALT 13 (4-34) U/L Alkaline Phosphatase 63 (38-126) U/L Troponin I <0.012 (0.000-0.034) ng/mL Total Protein 8.2 (6.3-8.2) g/dL Albumin 4.7 (3.5-5.0) g/dL Lipase 67 (23-300) U/L Urine Color Urine Appearance (Clear) Urine pH (5.0-8.0) Ur Specific Nitro (1.001-1.035) Urine Protein (Negative) Urine Glucose (UA) (Negative) Urine Ketones (Negative) Urine Blood (Negative) Urine Nitrite (Negative) Urine Bilirubin (Negative) Urine Urobilinogen (<2.0) mg/dL Ur Leukocyte Esterase (Negative) Coronavirus (PCR) (Not Detectd) 06/09/21 Range/Units 15:36 WBC (3.8-10.6) k/uL RBC (3.80-5.40) m/uL Hgb (11.4-16.0) gm/dL Hct (34.0-46.0) % MCV (80.0-100.0) fL MCH (25.0-35.0) pg MCHC (31.0-37.0) g/dL RDW (11.5-15.5) % Plt Count (150-450) k/uL MPV Neutrophils % % Lymphocytes % % Monocytes % % Eosinophils % % Basophils % % Neutrophils # (1.3-7.7) k/uL Lymphocytes # (1.0-4.8) k/uL Monocytes # (0-1.0) k/uL Eosinophils # (0-0.7) k/uL Basophils # (0-0.2) k/uL PT (9.0-12.0) sec INR (<1.2) APTT (22.0-30.0) sec D-Dimer (<0.60) mg/L FEU Sodium (137-145) mmol/L Potassium (3.5-5.1) mmol/L Chloride (98-107) mmol/L Carbon Dioxide (22-30) mmol/L Anion Gap mmol/L BUN (7-17) mg/dL Creatinine (0.52-1.04) mg/dL Est GFR (CKD-EPI)AfAm (>60 ml/min/1.73 sqM) Est GFR (CKD-EPI)NonAf (>60 ml/min/1.73 sqM) Glucose (74-99) mg/dL Plasma Lactic Acid Keshav (0.7-2.0) mmol/L Calcium (8.4-10.2) mg/dL Total Bilirubin (0.2-1.3) mg/dL AST (14-36) U/L ALT (4-34) U/L Alkaline Phosphatase (38-126) U/L Troponin I (0.000-0.034) ng/mL Total Protein (6.3-8.2) g/dL Albumin (3.5-5.0) g/dL Lipase (23-300) U/L Urine Color Urine Appearance (Clear) Urine pH (5.0-8.0) Ur Specific Nitro (1.001-1.035) Urine Protein (Negative) Urine Glucose (UA) (Negative) Urine Ketones (Negative) Urine Blood (Negative) Urine Nitrite (Negative) Urine Bilirubin (Negative) Urine Urobilinogen (<2.0) mg/dL Ur Leukocyte Esterase (Negative) Coronavirus (PCR) Not Detected (Not Detectd) Disposition Clinical Impression: Shortness of breath, Musculoskeletal back pain Disposition: HOME SELF-CARE Condition: Stable Instructions (If sedation given, give patient instructions): Musculoskeletal Pain (ED), Shortness of Breath (ED) Additional Instructions: Please return to the emergency department with any concerning, new, or worsening symptoms. Follow-up with primary care provider next 24-48 hours. Is patient prescribed a controlled substance at d/c from ED?: No Referrals: [facility],Clinic [Primary Care Provider] - 1-2 days Time of Disposition: 16:38
--- NOTE | 2021-06-09 12:19 | XR ---
EXAMINATION TYPE: XR chest 2V DATE OF EXAM: 06/09/2021 COMPARISON: Chest x-ray 06/01/2021 HISTORY: Shortness of breath TECHNIQUE: Frontal and lateral views of the chest are obtained. FINDINGS: There is no focal air space opacity, pleural effusion, or pneumothorax seen. The cardiac silhouette size is within normal limits. The osseous structures are intact. IMPRESSION: No acute cardiopulmonary process.
[2021-06-09 13:11] LABS: Basophils % (A) 1 %; Eosinophils # (A) 0.1 k/uL (0-0.7); Eosinophils % (A) 1 %; HCT 44.4 % (34.0-46.0); HGB 15.4 gm/dL (11.4-16.0); Lymphocytes # (A) 1.9 k/uL (1.0-4.8); Lymphocytes % (A) 27 %; MCH 30.6 pg (25.0-35.0); MCHC 34.8 g/dL (31.0-37.0); MCV 87.8 fL (80.0-100.0); Mean Platelet Volume 7.8; Monocytes # (A) 0.3 k/uL (0-1.0); Monocytes % (A) 5 %; Neutrophils # (A) 4.6 k/uL (1.3-7.7); Neutrophils % (A) 65 %; Platelet Count 403 k/uL (150-450); RBC 5.05 m/uL (3.80-5.40); RDW 13.1 % (11.5-15.5); WBC 7.1 k/uL (3.8-10.6)
[2021-06-09 13:15] LABS: Appearance,Urine Clear (Clear); Bilirubin,Urine Negative (Negative); Blood,Urine Negative (Negative); Color,Urine Yellow; Glucose,Urine (UA) Negative (Negative); Ketones,Urine 2+ (Negative); Leukocyte Esterase,Urine Negative (Negative); Nitrite,Urine Negative (Negative); PH, Urine 6.5 (5.0-8.0); Protein,Urine Negative (Negative); Specific Gravity,Urine 1.018 (1.001-1.035); Urobilinogen,Urine <2.0 mg/dL (<2.0)
[2021-06-09 13:24] LABS: Partial Thromboplastin Time 23.7 sec (22.0-30.0)
[2021-06-09 13:37] LABS: ALT 13 U/L (4-34); AST 24 U/L (14-36); African American GFR (CKD) >90 (>60 ml/min/1.73 sqM); Albumin 4.7 g/dL (3.5-5.0); Alkaline Phosphatase 63 U/L (38-126); Anion Gap 10 mmol/L; Blood Urea Nitrogen 8 mg/dL (7-17); Calcium 10.3 mg/dL (8.4-10.2); Carbon Dioxide 25 mmol/L (22-30); Chloride 106 mmol/L (98-107); Glucose 94 mg/dL (74-99); Lipase 67 U/L (23-300); Non-African American GFR(CKD) >90 (>60 ml/min/1.73 sqM); Potassium 3.4 mmol/L (3.5-5.1); Sodium 141 mmol/L (137-145); Total Bilirubin 0.7 mg/dL (0.2-1.3); Total Protein 8.2 g/dL (6.3-8.2)
[2021-06-09 14:26] VITALS: RESP 20
--- NOTE | 2021-06-09 15:34 | CT ---
EXAMINATION TYPE: CT abdomen pelvis w con DATE OF EXAM: 06/09/2021 COMPARISON: None HISTORY: mid back pain CT DLP: 796 mGycm Automated exposure control for dose reduction was used. TECHNIQUE: Helical acquisition of images from the lung bases through the pelvis have been completed. CONTRAST: Performed without Oral Contrast and with IV Contrast, patient injected with 100 mL of Isovue 370. FINDINGS: LUNG BASES: No significant abnormality is appreciated. AORTA: No significant abnormality is appreciated. LIVER/GB: No significant abnormality is appreciated. PANCREAS: No significant abnormality is seen. SPLEEN: Probable granuloma noted at the inferior margin and also the superior margin. ADRENALS: No significant abnormality is seen. KIDNEYS: Cortical cyst is present posteriorly at the upper pole the left kidney measuring 2 cm REPRODUCTIVE ORGANS: Not seen BOWEL: No significant abnormality is seen. No inflammatory change seen at the appendix FREE AIR: No Free Air visible. ASCITES: None visible. PELVIC ADENOPATHY: None visualized. RETROPERITONEAL ADENOPATHY: No Retroperitoneal Adenopathy visible. URINARY BLADDER: No significant abnormality is seen. OSSEOUS STRUCTURES: No significant abnormality is seen. IMPRESSION: NONOBSTRUCTIVE LEFT NEPHROLITHIASIS. OLD GRANULOMATOUS DISEASE. POSTOP CHANGES.
--- NOTE | 2021-06-09 15:38 | CT ---
EXAMINATION TYPE: CT chest angio for PE DATE OF EXAM: 06/09/2021 COMPARISON: NONE HISTORY: elevated d dimer, shortness of breath CT DLP: 238 mGycm. Automated Exposure Control for Dose Reduction was Utilized. CONTRAST: CTA scan of the thorax is performed with IV Contrast, patient injected with 100 mL of Isovue 370, pul monary embolism protocol. MIP Images are created on CT scanner and reviewed. FINDINGS: LUNGS: Some motion artifact degradation makes evaluation suboptimal particularly for subcentimeter no dules. No suspicious focal groundglass opacity or consolidation. No pleural effusion or pneumothorax seen bilaterally. MEDIASTINUM: There is less than optimal study with near equal contrast in the aorta versus pulmonary arteries but no convincing CT evidence for acute pulmonary embolism. Prominent but subcentimeter gaston ateral hilar lymph nodes. Satisfactory enhancement of the aorta without aneurysm or dissection. There are no greater than 1 cm mediastinal lymph nodes. No cardiomegaly or pericardial effusion is seen. There is incidental 1.0 cm posterior superior left thyroid nodule coronal image 54 warrants nonemerg ent ultrasound follow-up. OTHER: Please refer to same day CT abdomen and pelvis report for complete details on the upper abdome n. IMPRESSION: Suboptimal study without acute pulmonary embolism. No suspicious acute pulmonary process.
[2021-06-09 16:47] VITALS: BP 130/84; PULSE 70
== END 2021-06-09 16:54 | disposition home or self-care (01) ==
LOC: EC 11:12
DX: R06.02 Shortness of breath (principal); I10 Essential (primary) hypertension; F17.200 Nicotine dependence, unspecified, uncomplicated; Z20.822 Contact with and (suspected) exposure to COVID-19; Z88.2 Allergy status to sulfonamides
CPT/HCPCS: 36415; 93005; 85379; 80053; 83605; 83690; 84484; 85025; 85610; 85730; 81003; 87635; 71046; 71275; 74177; 99285; 96360; 96361; Q9967

== ENCOUNTER → 2021-07-07 | Outpatient (CLI) | payer OTHER ==
--- NOTE | 2021-07-07 12:11 | US ---
EXAMINATION TYPE: US thyroid st tissue head/neck DATE OF EXAM: 07/07/2021 COMPARISON: CT chest 06/09/2021 CLINICAL HISTORY: 45-year-old female E04.1 thyroid nodule. Left nodule seen on recent CT TECHNIQUE: Multiple sonographic images of the thyroid gland are obtained. FINDINGS: GLAND SIZE: Right Lobe: 5.2 x 1.2 x 1.8 cm Overall Parenchyma: heterogenous Left Lobe: 4.9 x 1.7 x 1.4 cm Overall Parenchyma: heterogeneous Isthmus Thickness: 0.3 cm NODULES RIGHT: # of nodules measured on right: 1 1. 0.9 X 0.4 x 0.9 cm, lower lateral, solid or almost completely solid, hypoechoic TR 4 nodule, whi ch is wider than tall, with smooth margins, without echogenic foci. Prior size: no previous LEFT: # of nodules measured on left: 1 1. 2.0 X 1.2 x 1.2 cm, mid mid, mixed cystic and solid, but primarily solid isoechoic TR3 nodule, w hich is wider than tall, with smooth margins, without echogenic foci. Prior size: no previous ISTHMUS: # of nodules measured in the isthmus: 0 Bilateral neck scanned, no evidence of lymphadenopathy. IMPRESSION: 1. Borderline thyromegaly. 2. Dominant 2.0 cm TR3 nodule left thyroid lobe. Follow-up recommended. FNA if it reaches 2.5 cm. 3. 9 mm TR4 nodule in the right lobe which can also be followed. FNA if it reaches 1.5 cm.
== END | disposition home or self-care (01) ==
LOC: RADUSWWP 09:28
PROVIDERS: ATTEND Family Medicine
DX: E04.1 Nontoxic single thyroid nodule (principal)
CPT/HCPCS: 76536

== ENCOUNTER → 2021-09-03 | Outpatient (CLI) | payer OTHER ==
--- NOTE | 2021-09-03 11:47 | MM ---
Reason for exam: follow-up at short interval from prior study. Last mammogram was performed 6 months ago. History: Patient is postmenopausal. Taking estrogen for 6 years beginning at age 38. Physical Findings: A clinical breast exam by your physician is recommended on an annual basis and results should be correlated with mammographic findings. MG 3D Diag Mammo W/Cad ILA Bilateral CC and MLO view(s) were taken. Prior study comparison: March 05, 2021, bilateral MG 3d diag mammo w/cad ILA. August 28, 2020, bilateral MG 3d screening mammo w/cad. The breast tissue is heterogeneously dense. This may lower the sensitivity of mammography. There is stable chronic nodularity bilaterally. Results were given to the patient verbally at the time of the exam. ASSESSMENT: Benign, BI-RAD 2 RECOMMENDATION: Routine screening mammogram of both breasts in 1 year.
== END | disposition home or self-care (01) ==
LOC: RADMAMWWP 08:43
DX: R92.8 Other abnormal and inconclusive findings on diagnostic imaging of breast (principal)
CPT/HCPCS: 77062; 77066

== ENCOUNTER 2021-09-23 22:59 | Emergency (ER) | payer OTHER ==
[2021-09-23 23:27] VITALS: RESP 16; TEMP 98
--- NOTE | 2021-09-24 00:15 | ED ---
Chest Pain HPI - General Chief Complaint: Chest Pain Stated Complaint: Chest Pain Time Seen by Provider: 09/23/21 23:29 Source: patient, EMS Mode of arrival: EMS - History of Present Illness MD Complaint: chest pain Onset/Timin -: hour(s) Onset: during rest Pain Location: substernal Pain Radiation: none Severity: mild Quality: tightness Consistency: constant Improves With: nothing Worsens With: nothing Other Symptoms: palpitations Treatments Prior to Arrival: none - Related Data Home Medications Medication Instructions Recorded Confirmed Biotin 10,000 mcg PO DAILY 10/31/20 06/09/21 Cholecalciferol [Vitamin D3 (25 50 mcg PO DAILY 10/31/20 06/09/21 Mcg = 1000 Iu)] Estradiol [Estrace] 1 mg PO DAILY 10/31/20 06/09/21 Multivitamins, Thera [Multivitamin 1 tab PO DAILY 10/31/20 06/09/21 (formulary)] [place]-3 Fatty Acids/Fish Oil [Fish 1 cap PO DAILY 10/31/20 06/09/21 Oil 1,000 mg Softgel] Omeprazole 20 mg PO BID 10/31/20 06/09/21 FLUoxetine HCL [PROzac] 10 mg PO DAILY 06/01/21 06/09/21 FLUoxetine HCL [PROzac] 20 mg PO DAILY 06/01/21 06/09/21 Loratadine 10 mg PO DAILY PRN 06/01/21 06/09/21 lisinopriL [Zestril] 2.5 mg PO DAILY 06/01/21 06/09/21 Previous Rx's Medication Instructions Recorded Acetaminophen Tab [Tylenol] 650 mg PO Q6HR PRN tab 06/02/21 Allergies Allergy/AdvReac Type Severity Reaction Status Date / Time Sulfa (Sulfonamide Allergy Rash/Hives Verified 06/09/21 13:27 Antibiotics) Review of Systems ROS Statement: Those systems with pertinent positive or pertinent negative responses have been documented in the HPI. ROS Other: All systems not noted in ROS Statement are negative. Constitutional: Denies: fever, chills Respiratory: Denies: cough, dyspnea Cardiovascular: Reports: chest pain, palpitations. Denies: edema, syncope Gastrointestinal: Denies: abdominal pain, nausea, vomiting, diarrhea Genitourinary: Denies: dysuria, hematuria Musculoskeletal: Denies: back pain Skin: Denies: rash Neurological: Denies: headache, weakness, numbness EKG Findings - EKG Results: EKG: interpreted by JERMAINE, sinus rhythm (Rate 74 bpm), normal axis, normal ST/T - Blocks, [place], Hypertrophy, ST Abn: QRS axis and voltage: low voltage (<0.5 MV total QRS and <1.0 MV in each precordial lead) Past Medical History Past Medical History: Hypertension Additional Past Medical History / Comment(s): ovarian cysts, kidney stones, History of Any Multi-Drug Resistant Organisms: None Reported Past Surgical History: Hysterectomy Additional Past Surgical History / Comment(s): heital hernia removal, Past Anesthesia/Blood Transfusion Reactions: No Reported Reaction Past Psychological History: No Psychological Hx Reported, Anxiety Smoking Status: Current every day smoker Past Alcohol Use History: Rare Past Drug Use History: Marijuana - Past Family History Father Family Medical History: Coronary Artery Disease (CAD), Myocardial Infarction (ME) Additional Family Medical History / Comment(s): Father had his first ME at the age of 46yrs. He has had CABG Mother Family Medical History: Myocardial Infarction (ME) Additional Family Medical History / Comment(s): Mother of a ME at the age of 49 yrs. General Exam General appearance: alert, in no apparent distress Head exam: Present: atraumatic, normocephalic Eye exam: Present: normal appearance. Absent: scleral icterus, conjunctival injection Neck exam: Present: normal inspection, full ROM Respiratory exam: Present: normal lung sounds bilaterally. Absent: respiratory distress, wheezes, rales, rhonchi, stridor Cardiovascular Exam: Present: regular rate, normal rhythm, normal heart sounds. Absent: systolic murmur, diastolic murmur, rubs, gallop GI/Abdominal exam: Present: soft. Absent: distended, tenderness, guarding, rebound, rigid, mass Extremities exam: Present: normal inspection, normal capillary refill. Absent: pedal edema, calf tenderness Back exam: Present: normal inspection. Absent: CVA tenderness (R), CVA tenderness (L) Neurological exam: Present: alert Skin exam: Present: warm, dry, intact, normal color. Absent: rash Course Vital Signs 09/23/21 09/24/21 09/24/21 23:20 00:27 01:27 Temperature 98 F Pulse Rate 83 88 71 Respiratory 16 Rate Blood Pressure 132/74 148/77 111/66 O2 Sat by Pulse 99 98 Oximetry Disposition Clinical Impression: Chest pain Disposition: HOME SELF-CARE Condition: Good Instructions (If sedation given, give patient instructions): Chest Pain (ED) Is patient prescribed a controlled substance at d/c from ED?: No Referrals: [facility],Clinic [Primary Care Provider] - 1-2 days
[2021-09-24 01:26] LABS: Basophils # (A) 0.1 k/uL (0-0.2); Basophils % (A) 1 %; Eosinophils # (A) 0.3 k/uL (0-0.7); Eosinophils % (A) 2 %; HCT 43.8 % (34.0-46.0); HGB 14.5 gm/dL (11.4-16.0); Lymphocytes # (A) 2.2 k/uL (1.0-4.8); Lymphocytes % (A) 19 %; MCH 29.4 pg (25.0-35.0); MCHC 33.2 g/dL (31.0-37.0); MCV 88.6 fL (80.0-100.0); Mean Platelet Volume 7.7; Monocytes # (A) 0.6 k/uL (0-1.0); Monocytes % (A) 5 %; Neutrophils # (A) 8.6 k/uL (1.3-7.7); Neutrophils % (A) 72 %; Platelet Count 341 k/uL (150-450); RBC 4.94 m/uL (3.80-5.40); RDW 11.9 % (11.5-15.5); WBC 11.9 k/uL (3.8-10.6)
[2021-09-24 01:32] LABS: Appearance,Urine Clear (Clear); Bilirubin,Urine Negative (Negative); Blood,Urine Negative (Negative); Color,Urine Colorless; Glucose,Urine (UA) Negative (Negative); Ketones,Urine Negative (Negative); Leukocyte Esterase,Urine Negative (Negative); Nitrite,Urine Negative (Negative); PH, Urine 7.5 (5.0-8.0); Protein,Urine Negative (Negative); Specific Gravity,Urine 1.003 (1.001-1.035); Urobilinogen,Urine <2.0 mg/dL (<2.0)
--- NOTE | 2021-09-24 01:32 | XR ---
EXAMINATION TYPE: XR chest 2V DATE OF EXAM: 09/24/2021 COMPARISON: 06/09/2021 HISTORY: Chest pain TECHNIQUE: FINDINGS: Heart and mediastinum are normal. Lungs are clear. Diaphragm is normal. Bony thorax appears normal. IMPRESSION: Normal chest. No change.
[2021-09-24 01:50] LABS: ALT 16 U/L (4-34); AST 32 U/L (14-36); African American GFR (CKD) >90 (>60 ml/min/1.73 sqM); Albumin 4.2 g/dL (3.5-5.0); Alkaline Phosphatase 85 U/L (38-126); Anion Gap 8 mmol/L; Blood Urea Nitrogen 13 mg/dL (7-17); Carbon Dioxide 24 mmol/L (22-30); Chloride 106 mmol/L (98-107); Glucose 123 mg/dL (74-99); Magnesium 2.1 mg/dL (1.6-2.3); Non-African American GFR(CKD) >90 (>60 ml/min/1.73 sqM); Potassium 3.9 mmol/L (3.5-5.1); Sodium 138 mmol/L (137-145); Total Bilirubin 0.3 mg/dL (0.2-1.3); Total Protein 6.9 g/dL (6.3-8.2)
[2021-09-24 03:44] VITALS: BP 99/58; PULSE 69
== END 2021-09-24 03:54 | disposition home or self-care (01) ==
LOC: EC 22:59
DX: R07.89 Other chest pain (principal); I10 Essential (primary) hypertension; F17.200 Nicotine dependence, unspecified, uncomplicated; Z82.49 Family history of ischemic heart disease and other diseases of the circulatory system; Z88.2 Allergy status to sulfonamides
CPT/HCPCS: 36415; 71046; 80053; 81003; 81025; 83735; 84484; 85025; 85379

== ENCOUNTER → 2022-02-12 | Outpatient (CLI) | payer OTHER ==
--- NOTE | 2022-02-12 09:54 | US ---
EXAMINATION TYPE: US thyroid st tissue head/neck DATE OF EXAM: 02/12/2022 COMPARISON: US 2021 CLINICAL HISTORY: E04.1 NONTOXIC SINGLE THYROID NODULE. Follow up thyroid nodules GLAND SIZE: Right Lobe: 4.6 x 1.2 x 1.7 cm Overall Parenchyma: heterogenous Left Lobe: 4.9 x 1.7 x 1.4 cm Overall Parenchyma: heterogeneous Isthmus Thickness: 0.3 cm NODULES RIGHT: # of nodules measured on right: 1 1. 0.9 X 0.4 x 0.7 cm, lower lateral, solid or almost completely solid, hypoechoic nodule, which is wider than tall, with smooth margins, without echogenic foci. Prior size: 0.9 x 0.4 x 0.9 cm LEFT: # of nodules measured on left: 1 1. 1.7 X 1.2 x 1.1 cm, mid, mixed cystic and solid, hypoechoic nodule, which is wider than tall, wi th smooth margins, without echogenic foci. Prior size: 2.0 x 1.2 x 1.2 cm ISTHMUS: # of nodules measured in the isthmus: 0 Bilateral neck scanned, no evidence of lymphadenopathy. IMPRESSION: 1. Mildly suspicious nodule left lobe thyroid. Follow-up in one year is recommended. 2017 ACR TI-RADS LEVEL: TR-RADS 3 - Mildly Suspicious: Follow if > 1.5 cm, FNA if > 2.5 cm *Highest TI-RADS level nodule reported
== END | disposition home or self-care (01) ==
LOC: RADUSWWP 07:02
DX: E04.1 Nontoxic single thyroid nodule (principal)
CPT/HCPCS: 76536

== ENCOUNTER 2022-05-06 20:34 | Emergency (ER) | payer OTHER ==
[2022-05-06 21:26] VITALS: RESP 16; TEMP 97.7
--- NOTE | 2022-05-06 21:48 | XR ---
EXAMINATION: XR chest 2V: 05/06/2022 9:38 PM CLINICAL INDICATION: Chest Pain TECHNIQUE: PA and lateral COMPARISON: 09/24/2021 FINDINGS: The lungs are clear. The pleural spaces are negative. The cardiac silhouette is not enlarged. The remainder of the mediastinal silhouette is unremarkable. The skeletal structures and soft tissues are negative for acute findings. IMPRESSION: No acute process.
[2022-05-06 22:53] LABS: ALT 28 U/L (4-34); AST 38 U/L (14-36); African American GFR (CKD) >90 (>60 ml/min/1.73 sqM); Albumin 4.6 g/dL (3.5-5.0); Alkaline Phosphatase 103 U/L (38-126); Anion Gap 9 mmol/L; Blood Urea Nitrogen 18 mg/dL (7-17); Carbon Dioxide 25 mmol/L (22-30); Chloride 105 mmol/L (98-107); Glucose 113 mg/dL (74-99); Non-African American GFR(CKD) >90 (>60 ml/min/1.73 sqM); Sodium 139 mmol/L (137-145); Total Bilirubin 0.4 mg/dL (0.2-1.3); Total Protein 7.7 g/dL (6.3-8.2)
[2022-05-06 23:02] LABS: INR 0.9 (<1.2); Partial Thromboplastin Time 24.2 sec (22.0-30.0); Prothrombin Time 10.1 sec (9.0-12.0)
[2022-05-06 23:03] LABS: Basophils # (A) 0.1 k/uL (0-0.2); Basophils % (A) 1 %; Eosinophils # (A) 0.1 k/uL (0-0.7); Eosinophils % (A) 1 %; HCT 42.7 % (34.0-46.0); HGB 15.1 gm/dL (11.4-16.0); Lymphocytes # (A) 1.8 k/uL (1.0-4.8); Lymphocytes % (A) 16 %; MCH 30.4 pg (25.0-35.0); MCHC 35.3 g/dL (31.0-37.0); Monocytes # (A) 0.4 k/uL (0-1.0); Monocytes % (A) 4 %; Neutrophils # (A) 8.7 k/uL (1.3-7.7); Neutrophils % (A) 78 %; Platelet Count 337 k/uL (150-450); RBC 4.96 m/uL (3.80-5.40); WBC 11.1 k/uL (3.8-10.6)
[2022-05-07 04:46] VITALS: BP 145/76; PULSE 70
--- NOTE | 2022-05-07 04:49 | ED ---
General Adult HPI - General Chief complaint: Chest Pain Stated complaint: Chest pain Time Seen by Provider: 05/07/22 04:34 Source: patient Mode of arrival: EMS Limitations: no limitations - History of Present Illness Initial comments: This is a 46-year-old female with a past medical history: Hypertension, anxiety and depression presents emergency department for a 30 minute episode of chest pain. The patient stated that she was at home relaxing on the couch when she had an episode of left-sided chest pain associated with lightheadedness and nausea that lasted approximately 30 minutes. The patient did state that she smokes marijuana and did have marijuana just prior to this but stated that she has smoked that supply before without any reaction. The patient then called EMS for evaluation. As the patient arrived to the emergency department, the patient was placed in the waiting room as there was a full department. While the patient was in the waiting room, the patient's pain had completely resolved. The patient on my evaluation stated that she didn't have any further acute pain or distress and all vital signs were stable. The patient denied any previous or similar episodes in the past. The patient was resting in bed comfortably and denied any nausea, vomiting, fevers and chills. - Related Data Home Medications Medication Instructions Recorded Confirmed Multivitamins, Thera [Multivitamin 1 tab PO ONCE 10/31/20 03/03/22 (formulary)] [place]-3 Fatty Acids/Fish Oil [Fish 1 cap PO DAILY 10/31/20 03/03/22 Oil 1,000 mg Softgel] Omeprazole 20 mg PO BID 10/31/20 03/03/22 FLUoxetine HCL [PROzac] 10 mg PO QAM 06/01/21 03/03/22 FLUoxetine HCL [PROzac] 20 mg PO QAM 06/01/21 03/03/22 Loratadine 10 mg PO DAILY PRN 06/01/21 03/03/22 Losartan [Cozaar] 25 mg PO BID 10/05/21 03/03/22 Atorvastatin (Unknown Dose) 1 dose PO HS 03/01/22 03/03/22 Cholecalciferol [Vitamin D3 (125 125 mcg PO DAILY 03/01/22 03/03/22 Mcg = 5000 Iu)] Allergies Allergy/AdvReac Type Severity Reaction Status Date / Time Sulfa (Sulfonamide Allergy Rash/Hives Verified 03/03/22 09:12 Antibiotics) Review of Systems ROS Statement: Those systems with pertinent positive or pertinent negative responses have been documented in the HPI. ROS Other: All systems not noted in ROS Statement are negative. Past Medical History Past Medical History: GERD/Reflux, Hypertension, Sleep Apnea/CPAP/BIPAP Additional Past Medical History / Comment(s): buging lumbar disc, hx colon polyps, hx kidney stones., thyroid nodules. History of Any Multi-Drug Resistant Organisms: None Reported Past Surgical History: Hysterectomy, Tubal Ligation Additional Past Surgical History / Comment(s): total hysterectomy, 2 ovarian cysts removed, right calf shelia removal, kidney stone basketing., colonoscopy, EGD. Past Anesthesia/Blood Transfusion Reactions: No Reported Reaction Past Psychological History: Anxiety, Depression, Panic Disorder Smoking Status: Current every day smoker Past Alcohol Use History: Rare Past Drug Use History: Marijuana - Past Family History Father Family Medical History: Coronary Artery Disease (CAD), Myocardial Infarction (AK) Additional Family Medical History / Comment(s): Father had his first AK at the age of 46yrs. He has had CABG Mother Family Medical History: Myocardial Infarction (AK) Additional Family Medical History / Comment(s): Mother of a AK at the age of 49 yrs. General Exam Limitations: no limitations General appearance: alert, in no apparent distress Head exam: Present: atraumatic, normocephalic, normal inspection Eye exam: Present: normal appearance, PERRL Pupils: Present: normal accommodation ENT exam: Present: normal exam, normal oropharynx, mucous membranes moist Neck exam: Present: normal inspection, full ROM Respiratory exam: Present: normal lung sounds bilaterally Cardiovascular Exam: Present: regular rate, normal rhythm, normal heart sounds GI/Abdominal exam: Present: soft, normal bowel sounds Extremities exam: Present: normal inspection, full ROM, normal capillary refill Back exam: Present: normal inspection, full ROM Neurological exam: Present: alert, oriented X3, CN II-XII intact Psychiatric exam: Present: normal affect, normal mood Skin exam: Present: warm, dry Course Vital Signs 05/06/22 05/07/22 21:22 04:44 Temperature 97.7 F Pulse Rate 90 70 Respiratory 16 16 Rate Blood Pressure 144/83 145/76 O2 Sat by Pulse 98 99 Oximetry EKG Findings - EKG Comments: EKG Findings:: An EKG was obtained was interpreted by myself. EKG showed a rate of 70, KS interval 163 and QRS duration of 76. QTc was 406. This EKG showed a normal sinus rhythm with no ST segment elevation or depression noted. Medical Decision Making - Medical Decision Making Was pt. sent in by a medical professional or institution ([facility], PATIENT REGISTRAR, urgent care, hospital, or custodial...) When possible be specific @ -No Did you speak to anyone other than the patient for history (EMS, parent, family, police, friend...)? What history was obtained from this source @ -No Did you review nursing and triage notes (agree or disagree)? Why? @ -I reviewed and agree with nursing and triage notes Were old charts reviewed (outside hosp., previous admission, EMS record, old EKG, old radiological studies, urgent care reports/EKG's, custodial records)? Report findings @ -No old charts were reviewed Differential Diagnosis (chest pain, altered mental status, abdominal pain women, abdominal pain men, vaginal bleeding, weakness, fever, dyspnea, syncope, headache, dizziness, GI bleed, back pain, seizure, CVA, palpatations, mental health)? @ -Acute coronary syndrome, pneumonia, pneumothorax EKG interpreted by me (3pts min.). @ -As above X-rays interpreted by me (1pt min.). @ -Chest x-ray was obtained and was interpreted by myself and showed no acute pathology CT interpreted by me (1pt min.). @ -None done U/S interpreted by me (1pt. min.). @ -None done What testing was considered but not performed or refused? (CT, X-rays, U/S, labs)? Why? @ -None What meds were considered but not given or refused? Why? @ -None Did you discuss the management of the patient with other professionals (professionals i.e. [facility], PATIENT REGISTRAR, lab, RT, psych nurse, dialysis social worker, third helper, teacher, business practices officer, case filler)? Give summary @ -No Was smoking cessation discussed for >3mins.? @ -No Was critical care preformed (if so, how long)? @ -No Were there social determinants of health that impacted care today? How? (Homelessness, low income, unemployed, alcoholism, drug addiction, transportation, low edu. Level, literacy, decrease access to med. care, [facility], r ehab)? @ -No Was there de-escalation of care discussed even if they declined (Discuss DNR or withdrawal of care, Hospice)? DNR status @ -No What co-morbidities impacted this encounter? (DM, HTN, Smoking, COPD, CAD, Cancer, CVA, ARF, Chemo, Hep., AIDS, mental health diagnosis, sleep apnea, morbid obesity)? @ -HTN, anxiety and depression Was patient admitted / discharged? Hospital course, mention meds given and route, prescriptions, significant lab abnormalities, going to OR and other pertinent info. @ -The patient was seen and evaluated emergency department. Physical exam, the patient was resting in bed without any acute complaints. Vital signs are stable. All laboratory workup and imaging was negative and the patient didn't have any recurrence of her symptoms. The patient denied of any other high risk factors and therefore was agreeable to being discharged home to follow-up as an outpatient for her episode of chest pain. The patient was agreeable to this and did understand to report back to the emergency department if her symptoms became acutely worse. The patient was discharged home in stable condition. Undiagnosed new problem with uncertain prognosis? @ -No Drug Therapy requiring intensive monitoring for toxicity (Heparin, Nitro, Insulin, Cardizem)? @ -No Were any procedures done? @ -No Diagnosis/symptom? @ -Atypical chest pain Acute, or Chronic, or Acute on Chronic? @ -Acute Uncomplicated (without systemic symptoms) or Complicated (systemic symptoms)? @ -Uncomplicated Side effects of treatment? @ -No Exacerbation, Progression, or Severe Exacerbation? @ -No Poses a threat to life or bodily function? How? (Chest pain, [place], AK, pneumonia, PE, COPD, DKA, ARF, appy, cholecystitis, CVA, Diverticulitis, Homicidal, Suicidal, threat to staff... and all critical care pts) @ -No - Lab Data Result diagrams: 05/06/22 22:23 05/06/22: Lab Results 05/06/22 05/06/22 05/06/22 Range/Units 22:23 22: 22: WBC 11.1 H (3.8-10.6) k/uL RBC 4.96 (3.80-5.40) m/uL Hgb 15.1 (11.4-16.0) gm/dL Hct 42.7 (34.0-46.0) % MCV 86.0 (80.0-100.0) fL MCH 30.4 (25.0-35.0) pg MCHC 35.3 (31.0-37.0) g/dL RDW 12.0 (11.5-15.5) % Plt Count 337 (150-450) k/uL MPV 8.0 Neutrophils % 78 % Lymphocytes % 16 % Monocytes % 4 % Eosinophils % 1 % Basophils % 1 % Neutrophils # 8.7 H (1.3-7.7) k/uL Lymphocytes # 1.8 (1.0-4.8) k/uL Monocytes # 0.4 (0-1.0) k/uL Eosinophils # 0.1 (0-0.7) k/uL Basophils # 0.1 (0-0.2) k/uL PT 10.1 (9.0-12.0) sec INR 0.9 (<1.2) APTT 24.2 (22.0-30.0) sec Sodium 139 (137-145) mmol/L Potassium 4.0 (3.5-5.1) mmol/L Chloride 105 (98-107) mmol/L Carbon Dioxide 25 (22-30) mmol/L Anion Gap 9 mmol/L BUN 18 H (7-17) mg/dL Creatinine 0.64 (0.52-1.04) mg/dL Est GFR (CKD-EPI)AfAm >90 (>60 ml/min/1.73 sqM) Est GFR (CKD-EPI)NonAf >90 (>60 ml/min/1.73 sqM) Glucose 113 H (74-99) mg/dL Calcium 10.0 (8.4-10.2) mg/dL Magnesium 2.0 (1.6-2.3) mg/dL Total Bilirubin 0.4 (0.2-1.3) mg/dL AST 38 H (14-36) U/L ALT 28 (4-34) U/L Alkaline Phosphatase 103 (38-126) U/L Troponin I (0.000-0.034) ng/mL Total Protein 7.7 (6.3-8.2) g/dL Albumin 4.6 (3.5-5.0) g/dL 05/06/22 05/07/22 Range/Units 22:23 04:44 WBC (3.8-10.6) k/uL RBC (3.80-5.40) m/uL Hgb (11.4-16.0) gm/dL Hct (34.0-46.0) % MCV (80.0-100.0) fL MCH (25.0-35.0) pg MCHC (31.0-37.0) g/dL RDW (11.5-15.5) % Plt Count (150-450) k/uL MPV Neutrophils % % Lymphocytes % % Monocytes % % Eosinophils % % Basophils % % Neutrophils # (1.3-7.7) k/uL Lymphocytes # (1.0-4.8) k/uL Monocytes # (0-1.0) k/uL Eosinophils # (0-0.7) k/uL Basophils # (0-0.2) k/uL PT (9.0-12.0) sec INR (<1.2) APTT (22.0-30.0) sec Sodium (137-145) mmol/L Potassium (3.5-5.1) mmol/L Chloride (98-107) mmol/L Carbon Dioxide (22-30) mmol/L Anion Gap mmol/L BUN (7-17) mg/dL Creatinine (0.52-1.04) mg/dL Est GFR (CKD-EPI)AfAm (>60 ml/min/1.73 sqM) Est GFR (CKD-EPI)NonAf (>60 ml/min/1.73 sqM) Glucose (74-99) mg/dL Calcium (8.4-10.2) mg/dL Magnesium (1.6-2.3) mg/dL Total Bilirubin (0.2-1.3) mg/dL AST (14-36) U/L ALT (4-34) U/L Alkaline Phosphatase (38-126) U/L Troponin I <0.012 <0.012 (0.000-0.034) ng/mL Total Protein (6.3-8.2) g/dL Albumin (3.5-5.0) g/dL Disposition Clinical Impression: Chest pain Disposition: HOME SELF-CARE Condition: Stable Instructions (If sedation given, give patient instructions): Chest Pain (ED) Is patient prescribed a controlled substance at d/c from ED?: No Referrals: [facility],Clinic [Primary Care Provider] - 1-2 days Time of Disposition: 04:45
== END 2022-05-07 05:23 | disposition home or self-care (01) ==
LOC: EC 20:34
DX: R07.9 Chest pain, unspecified (principal); I10 Essential (primary) hypertension; K21.9 Gastro-esophageal reflux disease without esophagitis; G47.30 Sleep apnea, unspecified; F41.9 Anxiety disorder, unspecified; F32.A Depression, unspecified; F17.200 Nicotine dependence, unspecified, uncomplicated; F12.90 Cannabis use, unspecified, uncomplicated; Z79.899 Other long term (current) drug therapy; Z88.2 Allergy status to sulfonamides
CPT/HCPCS: 36415; 71046; 80053; 83735; 84484; 85025; 85610; 85730; 93005; 99285

== ENCOUNTER 2022-05-13 18:07 | Emergency (ER) | payer OTHER ==
[2022-05-13 18:13] VITALS: TEMP 98.7
[2022-05-13] MEDS ORDERED: ASPIRIN 81 MG PO STA (18:45)
[2022-05-13] MEDS ORDERED: NITROGLYCERIN SL TABS 0.4 MG TAB SUBLINGUAL STA (18:45)
--- NOTE | 2022-05-13 19:09 | ED ---
Chest Pain HPI - General Chief Complaint: Chest Pain Stated Complaint: chest pain Time Seen by Provider: 05/13/22 18:31 Source: patient Mode of arrival: EMS - History of Present Illness Initial Comments: This patient is a 46-year-old woman who presents to have evaluation for substernal chest pain that developed just before 5 PM tonight. Patient states she was at work but it was not exertional in nature. She describes as being moderately severe, aching and did radiate to her back. There were no associated symptoms. She had last eaten around lunch she had a tuna sandwich. Patient states she had a similar episode and was seen here approximately 5 days ago. MD Complaint: chest pain -: hour(s) Onset: other Pain Location: substernal Pain Radiation: back Severity: moderate, severe Quality: heaviness Consistency: constant Improves With: nothing Worsens With: nothing Treatments Prior to Arrival: none - Related Data Home Medications Medication Instructions Recorded Confirmed Multivitamins, Thera [Multivitamin 1 tab PO ONCE 10/31/20 05/13/22 (formulary)] [place]-3 Fatty Acids/Fish Oil [Fish 1 cap PO DAILY 10/31/20 05/13/22 Oil 1,000 mg Softgel] Omeprazole 20 mg PO BID 10/31/20 05/13/22 Loratadine 10 mg PO DAILY 06/01/21 05/13/22 Losartan [Cozaar] 25 mg PO BID 10/05/21 05/13/22 Atorvastatin (Unknown Dose) 1 dose PO HS 03/01/22 05/13/22 Cholecalciferol [Vitamin D3 (125 125 mcg PO DAILY 03/01/22 05/13/22 Mcg = 5000 Iu)] FLUoxetine HCL 40 mg PO DAILY 05/13/22 05/13/22 Allergies Allergy/AdvReac Type Severity Reaction Status Date / Time Sulfa (Sulfonamide Allergy Rash/Hives Verified 03/03/22 09:12 Antibiotics) Review of Systems ROS Statement: Those systems with pertinent positive or pertinent negative responses have been documented in the HPI. ROS Other: All systems not noted in ROS Statement are negative. Constitutional: Denies: fever, chills, weakness Respiratory: Denies: cough, dyspnea Cardiovascular: Reports: chest pain. Denies: palpitations, orthopnea, edema, syncope Gastrointestinal: Denies: abdominal pain, nausea, vomiting Genitourinary: Denies: dysuria, hematuria Musculoskeletal: Denies: back pain Skin: Denies: rash Neurological: Denies: headache, weakness, numbness Psychiatric: Reports: anxiety EKG Findings - EKG Results: EKG: interpreted by BLESSING DEAN, sinus rhythm (Rate 62 bpm), normal axis, normal QRS, normal ST/T, no acute changes - MT, Pacemaker, Normal: Normal tracing: normal tracing Past Medical History Past Medical History: GERD/Reflux, Hypertension, Sleep Apnea/CPAP/BIPAP Additional Past Medical History / Comment(s): buging lumbar disc, hx colon polyps, hx kidney stones., thyroid nodules. History of Any Multi-Drug Resistant Organisms: None Reported Past Surgical History: Hysterectomy, Tubal Ligation Additional Past Surgical History / Comment(s): total hysterectomy, 2 ovarian cysts removed, right calf shelia removal, kidney stone basketing., colonoscopy, EGD. Past Anesthesia/Blood Transfusion Reactions: No Reported Reaction Past Psychological History: Anxiety, Depression, Panic Disorder Smoking Status: Current every day smoker Past Alcohol Use History: Rare Past Drug Use History: Marijuana - Past Family History Father Family Medical History: Coronary Artery Disease (CAD), Myocardial Infarction ([place]) Additional Family Medical History / Comment(s): Father had his first [place] at the age of 46yrs. He has had CABG Mother Family Medical History: Myocardial Infarction ([place]) Additional Family Medical History / Comment(s): Mother of a [place] at the age of 49 yrs. General Exam General appearance: alert, in no apparent distress Head exam: Present: atraumatic, normocephalic Eye exam: Present: normal appearance. Absent: scleral icterus, conjunctival injection Neck exam: Present: normal inspection Respiratory exam: Present: normal lung sounds bilaterally. Absent: respiratory distress, wheezes, rales, rhonchi, stridor, chest wall tenderness, accessory muscle use Cardiovascular Exam: Present: regular rate, normal rhythm, normal heart sounds. Absent: systolic murmur, diastolic murmur, rubs, gallop GI/Abdominal exam: Present: soft. Absent: distended, tenderness, guarding, rebound, rigid, mass Extremities exam: Present: normal inspection, normal capillary refill. Absent: pedal edema, calf tenderness Back exam: Present: normal inspection. Absent: CVA tenderness (R), CVA tenderness (L) Neurological exam: Present: alert Skin exam: Present: warm, dry, intact, normal color. Absent: rash Course Vital Signs 05/13/22 05/13/22 05/13/22 18:09 19:00 19:30 Temperature 98.7 F Pulse Rate 78 69 70 Respiratory 18 20 20 Rate Blood Pressure 156/74 148/84 132/74 O2 Sat by Pulse 100 98 98 Oximetry 05/13/22 05/13/22 05/14/22 19:45 23:08 01:20 Temperature Pulse Rate 70 61 72 Respiratory 15 20 18 Rate Blood Pressure 132/74 141/82 125/66 O2 Sat by Pulse 98 97 100 Oximetry Chest Pain MDM - MDM I interpreted the patient's chest x-ray is not showing acute infiltrate, cardiomegaly, or mediastinal enlargement. Was pt. sent in by a medical professional or institution? @ -No Did you speak to anyone other than the patient for history? @ -[EMS Did you review nursing and triage notes? @ -[agree Were old charts reviewed? @ -[Previous visit Differential Diagnosis? @ -[Differential Chest Pain: Stable Angina, Unstable Angina, STEMI, NSTEMI Aortic Dissection, Pneumothorax, Musculoskeletal, Esophageal Spasm GERD, Cholecystitis, Pancreatitis, Zoster, this is not meant to be an all-inclusive list. EKG interpreted by me (3pts min.)? @ -[See chart X-rays interpreted by me (1pt min.)? @ -[See chart CT interpreted by me (1pt min.)? @ -[none] U/S interpreted by me (1pt. min.)? @ -[none] What testing was considered but not performed? (CT, X-rays, U/S, labs)? Why? @ [None What meds were considered but not given? Why? @ -[none] Did you discuss the management of the patient with other professionals? @ -[No Did you reconcile home meds? @ -[none] Was smoking cessation discussed for >3mins.? @ -[none] Was critical care preformed (if so, how long)? @ -[none] Were there social determinants of health that impacted care today? How? (Homelessness, low income, unemployed, alcoholism, drug addiction, transportation, low edu. Level, literacy, decrease access to med. care, prison, rehab)? @ -[No Was there de-escalation of care discussed even if they declined? (Discuss DNR or withdrawal of care, Hospice)? @ -[No What co-morbidities impacted this encounter? (DM, HTN, Smoking, COPD, CAD, Cancer, CVA, Hep., AIDS, mental health diagnosis, sleep apnea, morbid obesity)? @ -[None Was patient admitted / discharged? @ -[Discharge Undiagnosed new problem with uncertain prognosis? @ -[none] Drug Therapy requiring intensive monitoring for toxicity (Heparin, Nitro, Insulin, Cardizem)? @ -[none] Were any procedures done? @ -[none] Diagnosis/symptom? @ -[Chest pain Acute, or Chronic, or Acute on Chronic? @ -[Acute Uncomplicated (without systemic symptoms) or Complicated (systemic symptoms)? @ -[default] Side effects of treatment? @ -[none] Exacerbation, Progression, or Severe Exacerbation] @ -[no] Poses a threat to life or bodily function? @ -[no] Disposition Clinical Impression: Chest pain Disposition: HOME SELF-CARE Condition: Good Instructions (If sedation given, give patient instructions): Chest Pain (ED) Is patient prescribed a controlled substance at d/c from ED?: No Referrals: [facility],Clinic [Primary Care Provider] - 1-2 days
[2022-05-13 19:16] LABS: Basophils # (A) 0.1 k/uL (0-0.2); Basophils % (A) 1 %; Eosinophils # (A) 0.2 k/uL (0-0.7); Eosinophils % (A) 3 %; HCT 42.8 % (34.0-46.0); Lymphocytes % (A) 38 %; MCH 29.9 pg (25.0-35.0); MCHC 35.1 g/dL (31.0-37.0); MCV 85.1 fL (80.0-100.0); Mean Platelet Volume 7.8; Monocytes # (A) 0.4 k/uL (0-1.0); Monocytes % (A) 5 %; Neutrophils # (A) 4.1 k/uL (1.3-7.7); Neutrophils % (A) 51 %; Platelet Count 350 k/uL (150-450); RBC 5.03 m/uL (3.80-5.40); RDW 12.4 % (11.5-15.5); WBC 7.9 k/uL (3.8-10.6)
[2022-05-13 19:26] LABS: Partial Thromboplastin Time 23.3 sec (22.0-30.0); Prothrombin Time 10.3 sec (9.0-12.0)
[2022-05-13 19:27] LABS: Potassium 3.6 mmol/L (3.5-5.1)
[2022-05-13 19:28] LABS: ALT 21 U/L (4-34); AST 29 U/L (14-36); African American GFR (CKD) >90 (>60 ml/min/1.73 sqM); Albumin 4.6 g/dL (3.5-5.0); Alkaline Phosphatase 93 U/L (38-126); Amylase 75 U/L (30-110); Anion Gap 8 mmol/L; Blood Urea Nitrogen 15 mg/dL (7-17); Carbon Dioxide 24 mmol/L (22-30); Chloride 108 mmol/L (98-107); Glucose 98 mg/dL (74-99); Lipase 148 U/L (23-300); Non-African American GFR(CKD) >90 (>60 ml/min/1.73 sqM); Sodium 140 mmol/L (137-145); Total Bilirubin 0.3 mg/dL (0.2-1.3); Total Protein 7.5 g/dL (6.3-8.2)
--- NOTE | 2022-05-13 19:50 | XR ---
EXAMINATION TYPE: XR chest 2V DATE OF EXAM: 05/13/2022 7:17 PM COMPARISON: Chest radiographs from 05/06/2022 TECHNIQUE: XR chest 2V Frontal and lateral views of the chest. CLINICAL INDICATION:Female, 46 years old with history of Chest Pain; FINDINGS: Lungs/Pleura: There is no evidence of pleural effusion, focal consolidation, or pneumothorax. Pulmonary vascularity: Unremarkable. Heart/mediastinum: Cardiomediastinal silhouette is unremarkable. Musculoskeletal: No acute osseous pathology. IMPRESSION: No acute cardiopulmonary disease/process.
[2022-05-13] MEDS ORDERED: MAG HYDROX/AL HYDROX/SIMETH 30 ML, HYOSCYAMINE ELIXIR 10 ML, LIDOCAINE VISCOUS 2% 10 ML PO STA ×3 (20:03)
[2022-05-14 01:22] VITALS: BP 125/66; PULSE 72; RESP 18
== END 2022-05-14 01:22 | disposition home or self-care (01) ==
LOC: EC 18:07
DX: R07.89 Other chest pain (principal); K21.9 Gastro-esophageal reflux disease without esophagitis; I10 Essential (primary) hypertension; F41.9 Anxiety disorder, unspecified; F32.A Depression, unspecified; F17.200 Nicotine dependence, unspecified, uncomplicated; F12.90 Cannabis use, unspecified, uncomplicated; Z88.2 Allergy status to sulfonamides; Z79.899 Other long term (current) drug therapy
CPT/HCPCS: 36415; 71046; 80053; 82150; 83690; 83735; 84484; 85025; 85610; 85730; 93005; 99285

== ENCOUNTER → 2022-09-10 | Outpatient (CLI) | payer OTHER ==
--- NOTE | 2022-09-13 18:34 | MM ---
Reason for Exam: Screening (asymptomatic). Last screening mammogram was performed 12 month(s) ago. Patient History: Menarche at age 13. First Full-Term at age 25. Left ovary removed at age 38. Right ovary removed at age 38. Hysterectomy at age 38. Postmenopausal. Estrogen for 6 years from age 38 until age 45. Risk Values: Susanna 5 year model risk: 0.9%. NCI Lifetime model risk: 10.5%. Prior Study Comparison: 11/19/2015 Screening Mammogram, [place]. 08/28/2020 Bilateral Screening Mammogram, [facility]. 03/05/2021 Bilateral Diagnostic Mammogram, [facility]. 09/03/2021 Bilateral Diagnostic Mammogram, [facility]. Tissue Density: There are scattered fibroglandular densities. Findings: Analyzed By CAD. Chronic nodularity on the right. There is no suspicious group of microcalcifications or new suspicious mass in either breast. Overall Assessment: Benign, BI-RAD 2 Management: Screening Mammogram of both breasts in 1 year. . Patient should continue monthly self-breast exams. A clinical breast exam by your physician is recommended on an annual basis. This exam should not preclude additional follow-up of suspicious palpable abnormalities. Note on Susanna scores and lifetime risk: 1. A Susanna score greater than 3% is considered moderate risk. If this is the case, consider specialist referral to assess eligibility for a risk reducing agent. 2. If overall lifetime risk for the development of breast cancer is 20% or higher, the patient may qualify for future screening with alternating mammogram and breast MRI. Electronically signed and approved by: Charles Mitchell M.D. Radiologist
== END | disposition home or self-care (01) ==
LOC: RADMAMWWP 07:33
DX: Z12.31 Encounter for screening mammogram for malignant neoplasm of breast (principal); Z78.0 Asymptomatic menopausal state
CPT/HCPCS: 77063; 77067

== ENCOUNTER 2023-02-18 13:02 | Emergency (ER) | payer OTHER ==
[2023-02-18 13:08] VITALS: RESP 18
[2023-02-18] MEDS ORDERED: MORPHINE SULFATE 4 MG/ML SYRINGE IV STA (13:16)
[2023-02-18] MEDS ORDERED: SODIUM CHLORIDE 0.9% 1,000 ML IV STA (13:16)
--- NOTE | 2023-02-18 13:19 | ED ---
Chest Pain HPI - General Chief Complaint: Chest Pain Stated Complaint: Chest pain Time Seen by Provider: 02/18/23 13:04 Source: patient, RN notes reviewed, old records reviewed Mode of arrival: ambulatory Limitations: no limitations - History of Present Illness Initial Comments: This is a 47-year-old female to the emergency department for evaluation of chest pain and near syncopal event with concern for having a stroke. Drinking some water while she was watching TV she laid down she felt a knot in her throat and her chest throughout her throat was closing and became severely anxious. Patient does suffer from underlying anxiety and depression. Also does suffer from high blood pressure with family history of heart disease so she be admitted for prematurity. Patient does have high blood pressure which she did take her medication for today. No other recent complaints of travel show sick contacts. No prior heart history herself. Patient symptoms are resolved on arrival MD Complaint: chest pain, other (Near syncope, chest pain throat closing) -: hour(s) Onset: during rest, after eating Pain Location: substernal, epigastric Pain Radiation: back Severity scale (1-10): 4 Quality: aching Consistency: constant Improves With: nothing Worsens With: nothing Anginal Symptoms: nausea Other Symptoms: palpitations Treatments Prior to Arrival: none - Related Data Home Medications Medication Instructions Recorded Confirmed Multivitamins, Thera [Multivitamin 1 tab PO ONCE 10/31/20 05/13/22 (formulary)] [place]-3 Fatty Acids/Fish Oil [Fish 1 cap PO DAILY 10/31/20 05/13/22 Oil 1,000 mg Softgel] Omeprazole 20 mg PO BID 10/31/20 05/13/22 Loratadine 10 mg PO DAILY 06/01/21 05/13/22 Losartan [Cozaar] 25 mg PO BID 10/05/21 05/13/22 Atorvastatin (Unknown Dose) 1 dose PO HS 03/01/22 05/13/22 Cholecalciferol [Vitamin D3 (125 125 mcg PO DAILY 03/01/22 05/13/22 Mcg = 5000 Iu)] FLUoxetine HCL 40 mg PO DAILY 05/13/22 05/13/22 Allergies Allergy/AdvReac Type Severity Reaction Status Date / Time Sulfa (Sulfonamide Allergy Rash/Hives Verified 02/18/23 13:07 Antibiotics) Review of Systems ROS Statement: Those systems with pertinent positive or pertinent negative responses have been documented in the HPI. ROS Other: All systems not noted in ROS Statement are negative. EKG Findings - EKG Comments: EKG Findings:: EKG is sinus 74 UT 157 QRS 81 QTC 431 - EKG Results: EKG: interpreted by JERMAINE Past Medical History Past Medical History: GERD/Reflux, Hypertension, Sleep Apnea/CPAP/BIPAP Additional Past Medical History / Comment(s): buging lumbar disc, hx colon polyps, hx kidney stones., thyroid nodules. History of Any Multi-Drug Resistant Organisms: None Reported Past Surgical History: Hysterectomy, Tubal Ligation Additional Past Surgical History / Comment(s): total hysterectomy, 2 ovarian cysts removed, right calf shelia removal, kidney stone basketing., colonoscopy, EGD. Past Anesthesia/Blood Transfusion Reactions: No Reported Reaction Past Psychological History: Anxiety, Depression, Panic Disorder Smoking Status: Current every day smoker Past Alcohol Use History: Rare Past Drug Use History: Marijuana - Past Family History Father Family Medical History: Coronary Artery Disease (CAD), Myocardial Infarction ([place] ) Additional Family Medical History / Comment(s): Father had his first [place] at the age of 46yrs. He has had CABG Mother Family Medical History: Myocardial Infarction ([place]) Additional Family Medical History / Comment(s): Mother of a [place] at the age of 49 yrs. General Exam Limitations: no limitations General appearance: alert, in no apparent distress, anxious Head exam: Present: atraumatic, normocephalic, normal inspection Eye exam: Present: normal appearance, PERRL, EOMI. Absent: scleral icterus, conjunctival injection, periorbital swelling ENT exam: Present: normal exam, mucous membranes moist Neck exam: Present: normal inspection. Absent: tenderness, meningismus, lymphadenopathy Respiratory exam: Present: normal lung sounds bilaterally. Absent: respiratory distress, wheezes, rales, rhonchi, stridor Cardiovascular Exam: Present: regular rate, normal rhythm, normal heart sounds. Absent: systolic murmur, diastolic murmur, rubs, gallop, clicks GI/Abdominal exam: Present: soft, normal bowel sounds. Absent: distended, tenderness, guarding, rebound, rigid Extremities exam: Present: normal inspection, full ROM, normal capillary refill. Absent: tenderness, pedal edema, joint swelling, calf tenderness Back exam: Present: normal inspection Neurological exam: Present: alert, oriented X3, CN II-XII intact Psychiatric exam: Present: normal affect, normal mood Skin exam: Present: warm, dry, intact, normal color. Absent: rash Course Vital Signs 02/18/23 02/18/23 13:04 15:03 Temperature 97.9 F 97.4 F L Pulse Rate 88 78 Respiratory 18 18 Rate Blood Pressure 150/73 123/69 O2 Sat by Pulse 99 98 Oximetry - Reevaluation(s) Reevaluation #1: 02/18/23 14:36 Medical records reviewed Reevaluation #2: 02/18/23 14:36 Patient symptoms remain resolved, no chest pain or shortness of breath Reevaluation #3: 02/18/23 14:36 Patient informed results questions answered 02/18/23 14:36 Studies Chest x-rays negative for acute disease interpreted by me Reevaluation #4: 02/18/23 14:36 Was pt. sent in by a medical professional or institution (, PA, TIMBER SELECTOR, urgent care, hospital, or penitentiary...) When possible be specific @ -no Did you speak to anyone other than the patient for history (EMS, parent, family, police, friend...)? What history was obtained from this source @ -no Did you review nursing and triage notes (agree or disagree)? Why? @ -agree Are old charts reviewed (outside hosp., previous admission, EMS record, old EKG, old radiological studies, urgent care reports/EKG's, penitentiary records)? Report findings @ -yes Differential Diagnosis (chest pain, altered mental status, abdominal pain women, abdominal pain men, vaginal bleeding, weakness, fever, dyspnea, syncope, headache, dizziness, GI bleed, back pain, seizure, CVA, palpatations, mental health, musculoskeletal)? @ -prior EKG interpreted by me (3pts min.). @ -yes X-rays interpreted by me (1pt min.). @ -yes CT interpreted by me (1pt min.). @ -no U/S interpreted by me (1pt. min.). @ -no What testing was considered but not performed or refused? (CT, X-rays, U/S, labs)? Why? @ -none What meds were considered but not given or refused? Why? @ -none Did you discuss the management of the patient with other professionals (professionals i.e. , PA, TIMBER SELECTOR, lab, RT, psych nurse, social media sr strategy manager, senior medical transcriptionist, teacher, tactical response group officer, case investigator)? Give summary @ -no Was smoking cessation discussed for >3mins.? @ -no Was critical care preformed (if so, how long)? @ -no Were there social determinants of health that impacted care today? How? (Homelessness, low income, unemployed, alcoholism, drug addiction, transportation, low edu. Level, literacy, decrease access to med. care, snf, rehab)? @ -none Was there de-escalation of care discussed even if they declined (Discuss DNR or withdrawal of care, Hospice)? DNR status @ -no What co-morbidities impacted this encounter? (DM, HTN, Smoking, COPD, CAD, Cancer, CVA, ARF, Chemo, Hep., AIDS, mental health diagnosis, sleep apnea, morbid obesity)? @ -none Was patient admitted / discharged? Hospital course, mention meds given and route, prescriptions, significant lab abnormalities, going to OR and other pertinent info. @ - 47 female to the emergency department for evaluation of chest pain. Patient has no findings of chest pain or cause of chest pain here in the ER. Patient remained a symptomatically throughout ER stay chest x-ray and EKG and normal troponin is negative patient feels well can be discharged home Discharge Undiagnosed new problem with uncertain prognosis? @ -no Drug Therapy requiring intensive monitoring for toxicity (Heparin, Nitro, Insulin, Cardizem)? @ -no Were any procedures done? @ -no Diagnosis/symptom? @ -Chest pain Acute, or Chronic, or Acute on Chronic? @ -Acute Uncomplicated (without systemic symptoms) or Complicated (systemic symptoms)? @ -Complicated Side effects of treatment? @ -no Exacerbation, Progression, or Severe Exacerbation? @ -exacerbation Poses a threat to life or bodily function? How? (Chest pain, [place], [place], pneumonia, PE, COPD, DKA, ARF, appy, cholecystitis, CVA, Diverticulitis, Homicidal, Suicidal, threat to staff... and all critical care pts) @ -yes if ACS Reevaluation #5: 02/18/23 14:36 Differential Chest Pain: Stable Angina, Unstable Angina, STEMI, NSTEMI Aortic Dissection, Pneumothorax, Musculoskeletal, Esophageal Spasm GERD, Cholecystitis, Pancreatitis, Zoster, this is not meant to be an all-inclusive list. Chest Pain MDM - MDM 47 female to the emergency department for evaluation of chest pain. Patient has no findings of chest pain or cause of chest pain here in the ER. Patient remained a symptomatically throughout ER stay chest x-ray and EKG and normal troponin is negative patient feels well can be discharged home Disposition Clinical Impression: Chest pain, Palpitations, Anxiety Disposition: HOME SELF-CARE Condition: Good Instructions (If sedation given, give patient instructions): Chest Pain (ED) Is patient prescribed a controlled substance at d/c from ED?: No Referrals: [facility],Clinic [Primary Care Provider] - 1-2 days Time of Disposition: 14:30
[2023-02-18 13:24] LABS: Basophils % (A) 0 %; Eosinophils # (A) 0.3 k/uL (0-0.7); Eosinophils % (A) 3 %; HCT 46.5 % (34.0-46.0); Lymphocytes # (A) 2.7 k/uL (1.0-4.8); Lymphocytes % (A) 29 %; MCH 30.1 pg (25.0-35.0); MCHC 34.3 g/dL (31.0-37.0); MCV 87.7 fL (80.0-100.0); Mean Platelet Volume 7.3; Monocytes # (A) 0.5 k/uL (0-1.0); Monocytes % (A) 5 %; Neutrophils # (A) 5.6 k/uL (1.3-7.7); Neutrophils % (A) 61 %; Platelet Count 387 k/uL (150-450); RDW 12.3 % (11.5-15.5); WBC 9.2 k/uL (3.8-10.6)
[2023-02-18 13:36] LABS: Partial Thromboplastin Time 25.5 sec (22.0-30.0); Prothrombin Time 10.6 sec (10.0-12.5)
[2023-02-18 13:37] LABS: ALT 23 U/L (4-34); AST 34 U/L (14-36); African American GFR (CKD) >90 (>60 ml/min/1.73 sqM); Albumin 4.7 g/dL (3.5-5.0); Alkaline Phosphatase 83 U/L (38-126); Anion Gap 14 mmol/L; Blood Urea Nitrogen 16 mg/dL (7-17); Calcium 10.2 mg/dL (8.4-10.2); Carbon Dioxide 20 mmol/L (22-30); Chloride 105 mmol/L (98-107); Glucose 99 mg/dL (74-99); Lipase 117 U/L (23-300); Non-African American GFR(CKD) >90 (>60 ml/min/1.73 sqM); Potassium 3.7 mmol/L (3.5-5.1); Sodium 139 mmol/L (137-145); Total Bilirubin 0.6 mg/dL (0.2-1.3); Total Protein 8.1 g/dL (6.3-8.2)
[2023-02-18 13:45] LABS: NT-Pro-B-Type Natriuretic Pept 39 pg/mL
--- NOTE | 2023-02-18 13:59 | XR ---
EXAMINATION TYPE: XR chest 1V portable DATE OF EXAM: 02/18/2023 COMPARISON: 05/13/2022 HISTORY: Chest pain TECHNIQUE: Single frontal view of the chest is obtained. FINDINGS: There is no focal air space opacity, pleural effusion, or pneumothorax seen. The cardiac silhouette size is within normal limits. The osseous structures are intact. IMPRESSION: No acute process.
[2023-02-18 15:19] VITALS: BP 123/69; PULSE 78; TEMP 97.4
== END 2023-02-18 15:05 | disposition home or self-care (01) ==
LOC: EC 13:02
DX: R00.2 Palpitations (principal); F41.9 Anxiety disorder, unspecified; K21.9 Gastro-esophageal reflux disease without esophagitis; I10 Essential (primary) hypertension; F32.A Depression, unspecified; F17.200 Nicotine dependence, unspecified, uncomplicated; F12.90 Cannabis use, unspecified, uncomplicated; Z88.2 Allergy status to sulfonamides; Z79.899 Other long term (current) drug therapy
CPT/HCPCS: 36415; 71045; 80053; 83690; 83735; 83880; 84484; 85025; 85610; 85730; 93005; 99285

== ENCOUNTER → 2023-02-23 | Outpatient (CLI) | payer OTHER ==
--- NOTE | 2023-02-23 22:57 | US ---
EXAMINATION TYPE: US thyroid st tissue head/neck DATE OF EXAM: 02/23/2023 COMPARISON: CLINICAL INDICATION: Female, 47 years old with history of E04.1 THYROID NODULE; Follow up nodules. GLAND SIZE: Right Lobe: 4.0 x 1.4 x 1.0 cm Overall Parenchyma: heterogenous Left Lobe: 4.2 x 1.4 x 1.6 cm Overall Parenchyma: heterogenous Isthmus Thickness: 0.4 cm NODULES RIGHT: # of nodules measured on right: 1 1. 0.9 X 0.8 x 0.5 cm, lower lateral, solid or almost completely solid, hypoechoic nodule, which is wider than tall, with ill-defined margins, without echogenic foci. Prior size: 0.9 x 0.7 x 0.4 cm LEFT: # of nodules measured on left: 1 1. 1.8 X 1.2 x 1.2 cm, mid mid, mixed cystic and solid, hypoechoic nodule, which is wider than tall , with smooth margins, without echogenic foci. Prior size: 1.7 x 1.1 x 1.2 cm ISTHMUS: # of nodules measured in the isthmus: 0 Bilateral neck scanned, no evidence of lymphadenopathy. IMPRESSION: Mildly suspicious right lobe thyroid nodule. Consider follow-up. 2017 ACR TI-RADS LEVEL: TR-RADS 3 - Mildly Suspicious: Follow if > 1.5 cm, FNA if > 2.5 cm *Highest TI-RADS level nodule reported
--- NOTE | 2023-02-23 22:59 | US ---
EXAMINATION TYPE: US kidneys/renal and bladder DATE OF EXAM: 02/23/2023 COMPARISON: CLINICAL INDICATION: Female, 47 years old with history of R31.9 HEMATURIA; Macroscopic hematuria. Hx renal stones. Right side pain but has since gone away. EXAM MEASUREMENTS: Right Kidney: 10.2 x 4.5 x 5.1 cm Left Kidney: 9.1 x 5.0 x 5.8 cm Right Kidney: Mid echogenic focus with shadow = 0.7 cm Left Kidney: Superior pole anechoic lesion = 1.9 x 1.8 x 1.6 cm. Dromedary hump. Lateral echogenic focus with no shadowing = 0.5 cm and 0.4 cm Bladder: Anechoic, distended Right jet seen IMPRESSION: 1. Nonobstructing right renal stone. 2. Left renal cyst
== END | disposition home or self-care (01) ==
LOC: RADUSWWP 07:37
PROVIDERS: ATTEND Family Medicine
DX: E04.2 Nontoxic multinodular goiter (principal); R31.9 Hematuria, unspecified
CPT/HCPCS: 76536; 76770

== ENCOUNTER → 2023-09-16 | Outpatient (CLI) | payer OTHER ==
--- NOTE | 2023-09-18 20:42 | MM ---
Reason for Exam: Screening (asymptomatic). Last screening mammogram was performed 12 month(s) ago. Patient History: Menarche at age 13. First Full-Term at age 25. Left ovary removed at age 38. Right ovary removed at age 38. Hysterectomy at age 38. Postmenopausal. Estrogen for 6 years from age 38 until age 45. Risk Values: Susanna 5 year model risk: 1.0%. NCI Lifetime model risk: 10.3%. Prior Study Comparison: 03/05/2021 Bilateral Diagnostic Mammogram, [facility]. 09/03/2021 Bilateral Diagnostic Mammogram, [facility]. 09/10/2022 Bilateral MG 3D screening mammo w/cad, [facility]. Tissue Density: There are scattered areas of fibroglandular density. Findings: Analyzed By CAD. Areas of asymmetric density remain unchanged. There is no suspicious group of microcalcifications or new suspicious mass in either breast. Overall Assessment: Benign, BI-RAD 2 Management: Screening Mammogram of both breasts in 1 year. . Patient should continue monthly self-breast exams. A clinical breast exam by your physician is recommended on an annual basis. This exam should not preclude additional follow-up of suspicious palpable abnormalities. Note on Susanna scores and lifetime risk: 1. A Susanna score greater than 3% is considered moderate risk. If this is the case, consider specialist referral to assess eligibility for a risk reducing agent. 2. If overall lifetime risk for the development of breast cancer is 20% or higher, the patient may qualify for future screening with alternating mammogram and breast MRI. Electronically signed and approved by: Charles Mitchell M.D. Radiologist
== END | disposition home or self-care (01) ==
LOC: RADMAMWWP 07:09
PROVIDERS: ATTEND Family Medicine
DX: Z12.31 Encounter for screening mammogram for malignant neoplasm of breast (principal); Z78.0 Asymptomatic menopausal state
CPT/HCPCS: 77063; 77067

== ENCOUNTER → 2023-09-20 | Outpatient (CLI) | payer OTHER ==
--- NOTE | 2023-09-20 08:26 | US ---
EXAMINATION TYPE: US thyroid st tissue head/neck DATE OF EXAM: 09/20/2023 COMPARISON: NONE CLINICAL INDICATION: Female, 47 years old with history of E04.1 NONTOXIC SINGLE THYROID NODULE; Follo w up GLAND SIZE: Right Lobe: 4.9 x 1.3 x 1.6 cm Overall Parenchyma: homogeneous Left Lobe: 5.3 x 1.8 x 1.4 cm Overall Parenchyma: homogeneous Isthmus Thickness: 0.4 cm NODULES RIGHT: # of nodules measured on right: 1 1. 1.0 X 0.5 x 0.8 cm, lower lateral, Prior size: 0.9 x 0.5 x 0.8 cm TIRADS Score: 4 TIRADS Category 4: Composition: Solid or almost completely solid (2 points). Echogenicity: Hypoechoic (2 points). Shape: Wider than tall (0 points). Margin: Smooth (0 points). Echogenic foci: None or large comet-tail artifacts (0 points) Recommendation: If >1.5cm: FNA; If >1cm: Follow up at 1,2, 3,5 years LEFT: # of nodules measured on left: 1 1. 1.7 X 1.3 x 1.3 cm, mid Prior size: 1.8 x 1.2 x 1.2 cm TIRADS Score: 3 TIRADS Category 3: Composition: Mixed cystic and solid (1 point). Echogenicity: Hypoechoic (2 points). Shape: Wider than tall (0 points). Margin: Smooth (0 points). Echogenic foci: None or large comet-tail artifacts (0 points) Recommendation: If >2.5cm: FNA; If >1.5cm: Follow up at 1,3,5 years ISTHMUS: # of nodules measured in the isthmus: 0 Bilateral neck scanned, no evidence of lymphadenopathy. IMPRESSION: Thyroid nodules that meet criteria for follow-up.
== END | disposition home or self-care (01) ==
LOC: RADUSWWP 09-16 07:11
PROVIDERS: ATTEND Family Medicine
DX: E04.2 Nontoxic multinodular goiter (principal)
CPT/HCPCS: 76536

== ENCOUNTER 2024-05-24 20:28 | Observation (INO) | payer OTHER ==
[2024-05-24] MEDS: NITROGLYCERIN OINT 1 INCH/GM PACKET TOPICAL SCH (20:56)
[2024-05-24] MEDS: SODIUM CHLORIDE 0.9% 1,000 ML IV STA (20:58)
[2024-05-24 20:59] LABS: Basophils # (A) 0.1 k/uL (0-0.2); Basophils % (A) 1 %; Eosinophils # (A) 0.4 k/uL (0-0.7); Eosinophils % (A) 4 %; HCT 43.5 % (34.0-46.0); HGB 14.6 gm/dL (11.4-16.0); Lymphocytes # (A) 4.3 k/uL (1.0-4.8); Lymphocytes % (A) 42 %; MCH 29.7 pg (25.0-35.0); MCHC 33.6 g/dL (31.0-37.0); MCV 88.3 fL (80.0-100.0); Monocytes # (A) 0.5 k/uL (0-1.0); Monocytes % (A) 5 %; Neutrophils # (A) 4.7 k/uL (1.3-7.7); Neutrophils % (A) 47 %; Platelet Count 390 k/uL (150-450); RBC 4.92 m/uL (3.80-5.40); RDW 11.9 % (11.5-15.5); WBC 10.1 k/uL (3.8-10.6)
--- NOTE | 2024-05-24 21:00 | ED ---
General Adult HPI - General Chief complaint: Chest Pain Stated complaint: Chest Pain Time Seen by Provider: 05/24/24 20:35 Source: patient, RN notes reviewed, old records reviewed Mode of arrival: EMS - History of Present Illness Initial comments: Patient is a 48-year-old female with past medical history remarkable for anxiety, GERD, hypertension, hyperlipidemia, sleep apnea presents emergency department complaining of palpitations and chest pain. States it was sudden onset earlier this afternoon. Called EMS and it was not improving. States it was a pressure pain sensation over the anterior chest as well as palpitations. States she has not felt this way before. Does have a history of panic attacks and states she typically does not feel like this. Does have family history of cardiac disease. Patient took a dose of her normal Klonopin to see if that wou ld help at home with no immediate relief. Called EMS and they provided the patient with 324 mg of aspirin as well as 1 nitro. The nitro tablet did resolve the patient's chest pain she believes. Denies any current chest pain or shortness of breath. Denies any fevers or chills. States she did feel nauseous when she had the pain. No radiation of the pain. Presents for further evaluation at this time.Patient states that chest pain may have involved her jaw as she felt it become tight but was not sure if she was just biting down due to anxiety. - Related Data Home Medications Medication Instructions Recorded Confirmed Multivitamins, Thera [Multivitamin 1 tab PO ONCE 10/31/20 05/13/22 (formulary)] [place]-3 Fatty Acids/Fish Oil [Fish 1 cap PO DAILY 10/31/20 05/13/22 Oil 1,000 mg Softgel] Omeprazole 20 mg PO BID 10/31/20 05/13/22 Loratadine 10 mg PO DAILY 06/01/21 05/13/22 Losartan [Cozaar] 25 mg PO BID 10/05/21 05/13/22 Atorvastatin (Unknown Dose) 1 dose PO HS 03/01/22 05/13/22 Cholecalciferol [Vitamin D3 (125 125 mcg PO DAILY 03/01/22 05/13/22 Mcg = 5000 Iu)] FLUoxetine HCL 40 mg PO DAILY 05/13/22 05/13/22 Allergies Allergy/AdvReac Type Severity Reaction Status Date / Time Sulfa (Sulfonamide Allergy Rash/Hives Verified 05/24/24 20:35 Antibiotics) Review of Systems ROS Statement: Those systems with pertinent positive or pertinent negative responses have been documented in the HPI. Review of Systems: CONST: Denies fever EYES: Denies blurry vision ENT: Denies nasal congestion C/V: Denies current chest pain RESP: Denies shortness of breath GI: Denies abdominal pain : Denies dysuria SKIN: Denies rash. MSK: Denies joint pain. NEURO: Denies headache ROS Other: All systems not noted in ROS Statement are negative. Past Medical History Past Medical History: GERD/Reflux, Hypertension, Sleep Apnea/CPAP/BIPAP Additional Past Medical History / Comment(s): buging lumbar disc, hx colon polyps, hx kidney stones., thyroid nodules. History of Any Multi-Drug Resistant Organisms: None Reported Past Surgical History: Hysterectomy, Tubal Ligation Additional Past Surgical History / Comment(s): total hysterectomy, 2 ovarian cysts removed, right calf shelia removal, kidney stone basketing., colonoscopy, EGD. Past Anesthesia/Blood Transfusion Reactions: No Reported Reaction Past Psychological History: Anxiety, Depression, Panic Disorder Smoking Status: Current every day smoker Past Alcohol Use History: Rare Past Drug Use History: Marijuana - Past Family History Father Family Medical History: Coronary Artery Disease (CAD), Myocardial Infarction (M I) Additional Family Medical History / Comment(s): Father had his first VA at the age of 46yrs. He has had CABG Mother Family Medical History: Myocardial Infarction (VA) Additional Family Medical History / Comment(s): Mother of a VA at the age of 49 yrs. General Exam - General Exam Comments Initial Comments: General: Appears in no acute distress. HEAD: Normal with no signs of head trauma. EYES: PERRLA, EOMI, conjunctiva normal, no discharge. ENT: Hearing grossly intact, normal oropharynx. RESPIRATORY: Clear breath sounds bilaterally. No wheezes, rales, or rhonchi. C/V: Regular rate and rhythm. S1 and S2 auscultated, no edema, peripheral pulses 2+ and intact throughout ABD: Abd is soft, nontender, nondistended EXT: Normal range of motion, no obvious deformity SKIN: No rashes or lesions observed on exposed skin. NEURO: Alert and oriented x 4. Course Vital Signs 05/24/24 05/24/24 20:32 20:55 Temperature 98.8 F Pulse Rate 88 87 Respiratory 18 18 Rate Blood Pressure 132/66 132/73 O2 Sat by Pulse 100 99 Oximetry Medical Decision Making - Medical Decision Making Was pt. sent in by a medical professional or institution ([facility], [employer], urgent care, hospital, or care home...) When possible be specific @ -No Did you speak to anyone other than the patient for history (EMS, parent, family, police, friend...)? What history was obtained from this source @ -No Did you review nursing and triage notes (agree or disagree)? Why? @ -I reviewed and agree with nursing and triage notes Were old charts reviewed (outside hosp., previous admission, EMS record, old EKG, old radiological studies, urgent care reports/EKG's, care home records)? Report findings @ -Reviewed EKG from January 2023 and compared with today's. No significant acute changes. Differential Diagnosis (chest pain, altered mental status, abdominal pain women, abdominal pain men, vaginal bleeding, weakness, fever, dyspnea, syncope, headache, dizziness, GI bleed, back pain, seizure, CVA, palpatations, mental health, musculoskeletal)? @ -Differential Chest Pain: Stable Angina, Unstable Angina, STEMI, NSTEMI Aortic Dissection, Pneumothorax, Musculoskeletal, Esophageal Spasm GERD, Cholecystitis, Pancreatitis, Zoster, this is not meant to be an all-inclusive list. EKG interpreted by me (3pts min.). @ -As above X-rays interpreted by me (1pt min.). @ -Chest x-ray reveals no obvious acute cardiopulmonary process. CT interpreted by me (1pt min.). @ -None done U/S interpreted by me (1pt. min.). @ -None done What testing was considered but not performed or refused? (CT, X-rays, U/S, labs)? Why? @ -None What meds were considered but not given or refused? Why? @ -Considered administering sublingual nitroglycerin as well as oral aspirin however patient already received both the patient currently has no chest pain. Did you discuss the management of the patient with other professionals (pr ofessionals i.e. [facility] Bonilla, [employer], lab, RT, psych nurse, social media community manager, fishing game warden, teacher, u[employer] revenue officer, wrapper caser)? Give summary @ -No Was smoking cessation discussed for >3mins.? @ -No Was critical care preformed (if so, how long)? @ -No Were there social determinants of health that impacted care today? How? (Homelessness, low income, unemployed, alcoholism, drug addiction, transportation, low edu. Level, literacy, decrease access to med. care, custodial, rehab)? @ -No Was there de-escalation of care discussed even if they declined (Discuss DNR or withdrawal of care, Hospice)? DNR status @ -No What co-morbidities impacted this encounter? (DM, HTN, Smoking, COPD, CAD, Cancer, CVA, ARF, Chemo, Hep., AIDS, mental health diagnosis, sleep apnea, morbid obesity)? @ -Anxiety, hypertension, hyperlipidemia Was patient admitted / discharged? Hospital course, mention meds given and route, prescriptions, significant lab abnormalities, going to OR and other pertinent info. @ -Based on patient's presentation and physical exam, presents emergency department complaining of chest pain. Appears to have resolved with nitroglycerin tablet on the way here. Does have a history of hypertension hyperlipidemia. Currently is asymptomatic. Will obtain cardiopulmonary workup. Nitropaste will be applied. Patient already took aspirin. Patient given a 1 L fluid bolus. She was in agreement this plan. EKG shows no signs of acute ischemia. Chest x-ray unremarkable. Laboratory studies unremarkable including undetectable troponin. On reevaluation, patient remains chest pain-free. However heart score is borderline at 4. Did recommend admission at this time for trending the troponins. Patient did at this time endorse that it may have been exertional chest pain that she had as she has been doing a lot of activity especially in the cold throughout the day today. She was in agreement plan for admission. We will continue with the Nitropaste. Cardiology consulted. I spoke with the admitting provider, Dr. Cruz of [facility] who accepted the admission. Undiagnosed new problem with uncertain prognosis? @ -No Drug Therapy requiring intensive monitoring for toxicity (Heparin, Nitro, Insulin, Cardizem)? @ -No Were any procedures done? @ -No Diagnosis/symptom? @ -Chest pain Acute, or Chronic, or Acute on Chronic? @ -Acute Uncomplicated (without systemic symptoms) or Complicated (systemic symptoms)? @ -Complicated Side effects of treatment? @ -None Exacerbation, Progression, or Severe Exacerbation] @ -No Poses a threat to life or bodily function? @ -Possibly, yes patient - Lab Data Result diagrams: 05/24/24 20:43 05/24/24 20:43 Lab Results 05/24/24 05/24/24 05/24/24 Range/Units 20:43 20:43 20:43 WBC 10.1 (3.8-10.6) k/uL RBC 4.92 (3.80-5.40) m/uL Hgb 14.6 (11.4-16.0) gm/dL Hct 43.5 (34.0-46.0) % MCV 88.3 (80.0-100.0) fL MCH 29.7 (25.0-35.0) pg MCHC 33.6 (31.0-37.0) g/dL RDW 11.9 (11.5-15.5) % Plt Count 390 (150-450) k/uL MPV 7.0 Neutrophils % 47 % Lymphocytes % 42 % Monocytes % 5 % Eosinophils % 4 % Basophils % 1 % Neutrophils # 4.7 (1.3-7.7) k/uL Lymphocytes # 4.3 (1.0-4.8) k/uL Monocytes # 0.5 (0-1.0) k/uL Eosinophils # 0.4 (0-0.7) k/uL Basophils # 0.1 (0-0.2) k/uL PT 10.8 (10.0-12.5) sec INR 1.0 (<1.2) APTT 24.3 (22.0-30.0) sec Sodium 137 (137-145) mmol/L Potassium 3.6 (3.5-5.1) mmol/L Chloride 100 (98-107) mmol/L Carbon Dioxide 27 (22-30) mmol/L Anion Gap 10 mmol/L BUN 17 (7-17) mg/dL Creatinine 0.71 (0.52-1.04) mg/dL Est GFR (CKD-EPI)AfAm >90 (>60 ml/min/1.73 sqM) Est GFR (CKD-EPI)NonAf >90 (>60 ml/min/1.73 sqM) Glucose 120 H (74-99) mg/dL Calcium 9.9 (8.4-10.2) mg/dL Magnesium 2.1 (1.6-2.3) mg/dL Total Bilirubin 0.5 (0.2-1.3) mg/dL AST 34 (14-36) U/L ALT 17 (4-34) U/L Alkaline Phosphatase 65 (38-126) U/L Troponin I (0.000-0.034) ng/mL Total Protein 7.1 (6.3-8.2) g/dL Albumin 4.5 (3.5-5.0) g/dL 05/24/24 Range/Units 20:43 WBC (3.8-10.6) k/uL RBC (3.80-5.40) m/uL Hgb (11.4-16.0) gm/dL Hct (34.0-46.0) % MCV (80.0-100.0) fL MCH (25.0-35.0) pg MCHC (31.0-37.0) g/dL RDW (11.5-15.5) % Plt Count (150-450) k/uL MPV Neutrophils % % Lymphocytes % % Monocytes % % Eosinophils % % Basophils % % Neutrophils # (1.3-7.7) k/uL Lymphocytes # (1.0-4.8) k/uL Monocytes # (0-1.0) k/uL Eosinophils # (0-0.7) k/uL Basophils # (0-0.2) k/uL PT (10.0-12.5) sec INR (<1.2) APTT (22.0-30.0) sec Sodium (137-145) mmol/L Potassium (3.5-5.1) mmol/L Chloride (98-107) mmol/L Carbon Dioxide (22-30) mmol/L Anion Gap mmol/L BUN (7-17) mg/dL Creatinine (0.52-1.04) mg/dL Est GFR (CKD-EPI)AfAm (>60 ml/min/1.73 sqM) Est GFR (CKD-EPI)NonAf (>60 ml/min/1.73 sqM) Glucose (74-99) mg/dL Calcium (8.4-10.2) mg/dL Magnesium (1.6-2.3) mg/dL Total Bilirubin (0.2-1.3) mg/dL AST (14-36) U/L ALT (4-34) U/L Alkaline Phosphatase (38-126) U/L Troponin I <0.012 (0.000-0.034) ng/mL Total Protein (6.3-8.2) g/dL Albumin (3.5-5.0) g/dL - EKG Data -: EKG Interpreted by Me EKG Comments: 12-lead Electrocardiogram Interpretation Note EKG was reviewed and interpreted by myself. 12-lead ECG performed at 2036 is interpreted by me as revealing normal sinus rhythm at a rate of 77 beats per minute. [place] is normal. MS interval is 168 ms, QRS duration is 82 ms, QTc is 396 ms.. There were no ST or T wave abnormalities to suggest myocardial ischemia or injury. R wave progression across the precordium was satisfactory. By my interpretation this EKG is non-diagnostic for acute ischemia. Disposition Clinical Impression: Chest pain Disposition: ADMITTED IP TO THIS [facility] Condition: Stable Referrals: Nonstaff,Physician [Primary Care Provider] - 1-2 days Time of Disposition: 22:10
[2024-05-24 21:08] LABS: Partial Thromboplastin Time 24.3 sec (22.0-30.0); Prothrombin Time 10.8 sec (10.0-12.5)
[2024-05-24 21:10] LABS: ALT 17 U/L (4-34); AST 34 U/L (14-36); African American GFR (CKD) >90 (>60 ml/min/1.73 sqM); Albumin 4.5 g/dL (3.5-5.0); Alkaline Phosphatase 65 U/L (38-126); Anion Gap 10 mmol/L; Blood Urea Nitrogen 17 mg/dL (7-17); Calcium 9.9 mg/dL (8.4-10.2); Carbon Dioxide 27 mmol/L (22-30); Chloride 100 mmol/L (98-107); Glucose 120 mg/dL (74-99); Magnesium 2.1 mg/dL (1.6-2.3); Non-African American GFR(CKD) >90 (>60 ml/min/1.73 sqM); Potassium 3.6 mmol/L (3.5-5.1); Sodium 137 mmol/L (137-145); Total Bilirubin 0.5 mg/dL (0.2-1.3); Total Protein 7.1 g/dL (6.3-8.2)
--- NOTE | 2024-05-24 21:55 | XR ---
EXAMINATION TYPE: XR chest 2V DATE OF EXAM: 05/24/2024 9:12 PM COMPARISON: 02/18/2023 CLINICAL INDICATION: Female, 48 years old with history of Chest Pain, TECHNIQUE: XR chest 2V view(s) obtained. FINDINGS: The heart size is normal. The pulmonary vasculature is normal. The lungs are clear. IMPRESSION: 1. No acute pulmonary process. [facility], Workstation: [facility], 05/24/2024 9:53 PM
[2024-05-24] MEDS ORDERED: NALOXONE 0.4 MG/ML 1 ML VIAL IV PRN (22:12)
[2024-05-24] MEDS ORDERED: ACETAMINOPHEN TAB 325 MG TAB PO PRN (22:12)
[2024-05-24] MEDS: SODIUM CHLORIDE 0.9% 1,000 ML IV SCH (22:48)
[2024-05-24] MEDS: HEPARIN SODIUM,PORCINE 5,000 UNIT/ML 1 ML VIAL SQ SCH (23:33)
--- NOTE | 2024-05-25 01:08 | P.HPIM ---
History of Present Illness H&P Date: 05/24/24 Chief Complaint: Chest pain and palpitations Patient is a 48-year-old female with medical history of hypertension and anxiety presenting to the ER with chief complaint of chest pain and palpitations. Patient says she had an herself throughout the day today, but the onset of the chest pain was at rest. She describes it as centralized without radiation and also noted some tightness in her jaw and associated nausea and lightheadedness. Patient states she felt palpitations as well and her heart rate was in the 140s. She does not endorse a history of panic attacks, but she states this felt different. She took a Klonopin 0.5 mg, but did not relieve symptoms. Patient called EMS and she was given 324 mg of aspirin and 2 nitro which she feels resolved the pain. Patient does endorse some difficulty equilibrating with positional changes. She denies any history of strokes, seizures, blood thinner use. She reports smoking half to 1 pack a day, occasional alcohol use, no caffeine use. Patient denies any history of thyroid disorders or diabetes. She denies any fevers, chills, diarrhea, vomiting, abdominal pain, urinary or bowel complaints. Patient states her home medications are losartan 25 twice daily, lovastatin 20 mg(reported myopathies with other statins), sertraline 100 mg, hydroxyzine 25 mg, famotidine 20 mg daily, and Klonopin 0.5 mg as needed. denies any history of cardiac disease, no recent travel or hospital stay , no history of blood clots, patient has a negative stress test in Mar 2024 positive family history of premature CAD mom at 49 of heart attack, dad had a CABG early on in his life Review of systems: Pertinent positives and negatives as discussed in HPI, a complete review of systems was performed and all other systems are negative. Allergies: Sulfa PCP: [facility] Physical examination: Vitals on admission temperature 97.9, heart rate 88 bpm, blood pressure 150/73, O2 saturation 99% on room air General: nontoxic, no distress, appears at stated age Derm: warm, dry, intact Head: atraumatic, normocephalic, symmetric Eyes: anicteric sclera Mouth: no lip lesion, mucus membranes moist Cardiovascular: S1 S2 reg, no murmur Lungs: CTA bilateral, no rhonchi, no rales, no accessory muscle use Abdominal: soft, non-tender to palpation, nondistended Extremities: No cyanosis, clubbing, or pedal edema. Neuro: Alert, Oriented to person, time and place, Gross neurological examination did not reveal any focal deficits. Cranial nerves II to XII grossly intact. Bilateral upper and lower extremity muscle strength intact and sensation intact. Psych: well appearing, appropriate affect Assessment/Plan: Patient is a 48-year-old female with past medical history of hypertension and anxiety who presented to ER with chest pain and palpitations. Case was discussed with the ED doc and patient will be admitted to internal medicine service for further evaluation. Labs on admission show WBC 10.1, hemoglobin 14.6, MCV 88.3, platelets 390. PT 10.8, INR 1, PTT 24.3. Sodium 137, potassium 3.6, chloride 100, bicarb 27, BUN 17, creatinine 0.71, glucose 120. Calcium 9.9 magnesium 2.1. LFTs unremarkable. Troponin negative. Labs reviewed and unremarkable. Active: Atypical chest pain with palpitations POTS versus panic attack EKG independently interpreted as sinus rhythm, ventricular rate 77 bpm, QTc of 396 ms with no acute ST changes suggestive of ischemia CXR shows no acute pulmonary process Trend troponin every 3 hours x 2 Follow-up echo Aspirin 81 mg po daily Continue lovastatin 20 mg due to statin intolerance Cardiology consult laboratory monitor Lipid panel , A1C Nitro prn for chest pain Obtain orthostatic vitals signs Chronic: Hypertension Continue losartan 25 mg twice daily Anxiety/depression with history of panic attacks Continue sertraline 100 mg Continue Klonopin 0.5 mg as needed Insomnia Continue hydroxyzine 25 mg as needed GERD Continue famotidine 20 mg daily F: 0.9% NS at 75 mL/h E: Replete as needed N: Heart healthy A: As tolerated DVT prophylaxis: Heparin 5000 units subcu every 8 hours The patient is admitted with an anticipated more than 2 midnight stay for evaluation of atypical chest pains with palpitations CODE STATUS: Full code Discussed with: Patient Anticipated discharge place: Pending clinical course I have seen and evaluated the patient today. I Discussed the case with the resident and agree with the resident's findings I edited the assessment and plan as necessary as documented in the resident's note. Past Medical History Past Medical History: GERD/Reflux, Hypertension, Sleep Apnea/CPAP/BIPAP Additional Past Medical History / Comment(s): buging lumbar disc, hx colon po lyps, hx kidney stones., thyroid nodules. History of Any Multi-Drug Resistant Organisms: None Reported Past Surgical History: Hysterectomy, Tubal Ligation Additional Past Surgical History / Comment(s): total hysterectomy, 2 ovarian cysts removed, right calf shelia removal, kidney stone basketing., colonoscopy, EGD. Past Anesthesia/Blood Transfusion Reactions: No Reported Reaction Past Psychological History: Anxiety, Depression, Panic Disorder Smoking Status: Current every day smoker Past Alcohol Use History: Rare Past Drug Use History: Marijuana - Past Family History Father Family Medical History: Coronary Artery Disease (CAD), Myocardial Infarction (DC) Additional Family Medical History / Comment(s): Father had his first DC at the age of 46yrs. He has had CABG Mother Family Medical History: Myocardial Infarction (DC) Additional Family Medical History / Comment(s): Mother of a DC at the age of 49 yrs. Medications and Allergies Home Medications Medication Instructions Recorded Confirmed Type Multivitamins, Thera [Multivitamin 1 tab PO ONCE 10/31/20 05/13/22 History (formulary)] [place]-3 Fatty Acids/Fish Oil [Fish 1 cap PO DAILY 10/31/20 05/13/22 History Oil 1,000 mg Softgel] Omeprazole 20 mg PO BID 10/31/20 05/13/22 History Loratadine 10 mg PO DAILY 06/01/21 05/13/22 History Losartan [Cozaar] 25 mg PO BID 10/05/21 05/13/22 History Atorvastatin (Unknown Dose) 1 dose PO HS 03/01/22 05/13/22 History Cholecalciferol [Vitamin D3 (125 125 mcg PO DAILY 03/01/22 05/13/22 History Mcg = 5000 Iu)] FLUoxetine HCL 40 mg PO DAILY 05/13/22 05/13/22 History Allergies Allergy/AdvReac Type Severity Reaction Status Date / Time Sulfa (Sulfonamide Allergy Rash/Hives Verified 05/24/24 20:35 Antibiotics) Physical Exam Vitals: Vital Signs Temp Pulse Resp BP Pulse Ox 05/24/24 20:55 87 18 132/73 99 05/24/24 20:32 98.8 F 88 18 132/66 100 Intake and Output 05/24/24 05/24/24 05/24/24 06:59 14:59 22:59 Other: Weight 71.668 kg Results CBC & Chem 7: 05/25/24 02:53 05/25/24 02:53 Labs: Abnormal Lab Results - Last 24 Hours (Table) 05/24/24 Range/Units 20:43 Glucose 120 H (74-99) mg/dL
[2024-05-25] MEDS ORDERED: clonazePAM 0.5 MG TAB PO PRN (03:08)
[2024-05-25] MEDS ORDERED: hydrOXYzine HCL 25 MG TAB PO PRN (03:08)
[2024-05-25 03:13] LABS: Basophils % (A) 1 %; Eosinophils # (A) 0.3 k/uL (0-0.7); Eosinophils % (A) 3 %; HCT 41.2 % (34.0-46.0); Lymphocytes # (A) 3.7 k/uL (1.0-4.8); Lymphocytes % (A) 42 %; MCH 30.1 pg (25.0-35.0); MCV 88.5 fL (80.0-100.0); Mean Platelet Volume 7.5; Monocytes # (A) 0.5 k/uL (0-1.0); Monocytes % (A) 5 %; Neutrophils # (A) 4.1 k/uL (1.3-7.7); Neutrophils % (A) 47 %; Platelet Count 340 k/uL (150-450); RBC 4.65 m/uL (3.80-5.40); RDW 12.4 % (11.5-15.5); WBC 8.7 k/uL (3.8-10.6)
[2024-05-25 03:35] LABS: ALT 16 U/L (4-34); AST 33 U/L (14-36); African American GFR (CKD) >90 (>60 ml/min/1.73 sqM); Albumin 3.7 g/dL (3.5-5.0); Alkaline Phosphatase 69 U/L (38-126); Anion Gap 8 mmol/L; Blood Urea Nitrogen 14 mg/dL (7-17); Calcium 9.2 mg/dL (8.4-10.2); Carbon Dioxide 23 mmol/L (22-30); Chloride 106 mmol/L (98-107); Glucose 103 mg/dL (74-99); Non-African American GFR(CKD) >90 (>60 ml/min/1.73 sqM); Potassium 4.2 mmol/L (3.5-5.1); Sodium 137 mmol/L (137-145); Total Bilirubin 0.4 mg/dL (0.2-1.3); Total Protein 6.4 g/dL (6.3-8.2)
[2024-05-25] MEDS: NITROGLYCERIN OINT 1 INCH/GM PACKET TOPICAL SCH (06:30)
[2024-05-25] MEDS: SERTRALINE 100 MG TAB PO SCH (07:35)
[2024-05-25] MEDS: ASPIRIN 81 MG PO SCH (07:35)
[2024-05-25] MEDS: FAMOTIDINE 20 MG TAB PO SCH (07:35)
[2024-05-25] MEDS: LOSARTAN 25 MG TAB PO SCH (07:35)
[2024-05-25 10:31] LABS: Chol/HDL Ratio 3.19 Ratio; LDL Cholesterol,Calculated 140.6 mg/dL (0.0-131.0)
[2024-05-25] MEDS ORDERED: NITROGLYCERIN SL TABS 0.4 MG TAB SUBLINGUAL PRN (12:23)
[2024-05-25] MEDS ORDERED: ALPRAZolam 0.25 MG TAB PO PRN (12:23)
[2024-05-25] MEDS ORDERED: ALPRAZolam 0.5 MG TAB PO PRN (12:23)
--- NOTE | 2024-05-25 12:23 | P.CRDCN ---
History of Present Illness History of present illness: HISTORY OF PRESENTING ILLNESS This is a pleasant 48-year-old with past medical history significant for tobacco abuse, anxiety, hypertension, strong family history of CAD presents secondary to chest pain, jaw pain, diaphoresis, shortness of breath and nausea. Patient states she did have some more stressful event with her type breaking and had gone outside to walk the garbage out and then had acute onset of her heart racing, jaw pain, shortness breath and sweaty. Patient started to shake and called EMS. EMS came and gave patient aspirin as well as nitro. She was able to track on her watch and then on her blood pressure blood pressures significantly elevated in the 170s and heart rate in the 130s to 140s. She felt her heart racing. She denies any similar episodes. EKG showing normal sinus rhythm with no significant ST or T-wave abnormalities. She has not see a budget assistant. She was seen 2021 with some bradycardia. She states [facility] and was reportedly normal. She does smoke approximately pack a day, no alcohol. Family history of mother dying of a massive NJ at 49 and father having a heart attack in his 40s, 47 and then had bypass in his 70s. Total cholesterol 240, LDL 140, HDL 75. Troponin normal 2 6 hours apart. REVIEW OF SYSTEMS At the time of my exam: CONSTITUTIONAL: Denies fever or chills. CARDIOVASCULAR: +chest pain, +shortness of breath, no orthopnea, PND or palpitations. RESPIRATORY: Denies cough. GASTROINTESTINAL: Denies abdominal pain, diarrhea, constipation, +nausea no vomiting. MUSCULOSKELETAL: Denies myalgias. NEUROLOGIC: Denies numbness, tingling or weakness. ENDOCRINE: Denies fatigue, weight change, polydipsia or polyurina. GENITOURINARY: Denies burning, hematuria or urgency with micturation. HEMATOLOGIC: Denies history of anemia or bleeding. PHYSICAL EXAMINATION Vital signs reviewed. CONSTITUTIONAL: No apparent distress. HEENT: Head is normocephalic. Pupils are equal, round. Sclerae anicteric. Mucous membranes of the mouth are moist. No JVD. No carotid bruit. CHEST EXAMINATION: Lungs are clear to auscultation. No chest wall tenderness is noted on palpation or with deep breathing. HEART EXAMINATION: Regular rate and rhythm. S1, S2 heard. No murmurs, gallops or rub. ABDOMEN: Soft, nontender. Positive bowel sounds. EXTREMITIES: 2+ peripheral pulses, no lower extremity edema and no calf tenderness. NEUROLOGIC EXAMINATION: Patient is awake, alert and oriented x3. ASSESSMENT Acute onset of typical angina-type symptoms with some tachycardia and hyperten teresa improved with aspirin and nitro. More consistent and concerning for unstable angina. Tobacco abuse Palpitations, tachycardia rule out arrhythmia Strong family history of CAD Hyperlipidemia Anxiety Hypertension PLAN Patient's symptoms of acute onset and Lasix for angina. Possibility of chano rodriguez causing some of her symptoms however most of her symptoms improve with aspirin and nitro. Especially given strong family history of CAD and number of risk factors we'll discuss more definitive evaluation with heart catheterization. Patient agreeable. Continue aspirin. Nitropaste. Check 2-D echo. Check d-dimer for completeness sake. If workup unrevealing consider outpatient monitor. Further recommendations to follow. Past Medical History Past Medical History: GERD/Reflux, Hypertension, Sleep Apnea/CPAP/BIPAP Additional Past Medical History / Comment(s): buging lumbar disc, hx colon polyps, hx kidney stones., thyroid nodules. History of Any Multi-Drug Resistant Organisms: None Reported Past Surgical History: Hysterectomy, Tubal Ligation Additional Past Surgical History / Comment(s): total hysterectomy, 2 ovarian cysts removed, right calf shelia removal, kidney stone basketing., colonoscopy, EGD. Past Anesthesia/Blood Transfusion Reactions: No Reported Reaction Past Psychological History: Anxiety, Depression, Panic Disorder Additional Psychological History / Comment(s): . Smoking Status: Current every day smoker Past Alcohol Use History: Rare Additional Past Alcohol Use History / Comment(s): Pt started smoking in 1993 , smokes 1/2 ppd. Past Drug Use History: Marijuana Additional Drug Use History / Comment(s): medical marijuana card, last 05/24/24 - Past Family History Father Family Medical History: Coronary Artery Disease (CAD), Myocardial Infarction (NJ) Additional Family Medical History / Comment(s): Father had his first NJ at the age of 46yrs. He has had CABG Mother Family Medical History: Myocardial Infarction (NJ) Additional Family Medical History / Comment(s): Mother of a NJ at the age of 49 yrs. Medications and Allergies Home Medications Medication Instructions Recorded Confirmed Type Multivitamins, Thera [Multivitamin 1 tab PO ONCE 10/31/20 05/25/24 History (formulary)] Losartan [Cozaar] 25 mg PO BID 10/05/21 05/25/24 History Cholecalciferol [Vitamin D3 (125 125 mcg PO DAILY 03/01/22 05/25/24 History Mcg = 5000 Iu)] Biotin 5 mg PO DAILY 05/25/24 05/25/24 History Cetirizine HCl [Zyrtec] 10 mg PO DAILY 05/25/24 05/25/24 History Famotidine [Pepcid] 20 mg PO DAILY 05/25/24 05/25/24 History Lovastatin [Mevacor] 10 mg PO HS 05/25/24 05/25/24 History Sertraline [Zoloft] 100 mg PO DAILY 05/25/24 05/25/24 History hydrOXYzine HCL [Atarax] 25 mg PO HS 05/25/24 05/25/24 History Allergies Allergy/AdvReac Type Severity Reaction Status Date / Time Sulfa (Sulfonamide Allergy Rash/Hives Verified 05/25/24 07:36 Antibiotics) sulfamethoxazole Allergy Rash/Hives Verified 05/25/24 07:36 [From Bactrim] trimethoprim [From Bactrim] Allergy Rash/Hives Verified 05/25/24 07:36 [id number] Reductase AdvReac Leg Cramps Verified 05/25/24 08:41 Inhibitor Physical Exam Vitals: Vital Signs Temp Pulse Pulse Pulse Pulse Resp BP 05/25/24 10:58 60 20 122/69 05/25/24 09:00 86 16 125/68 05/25/24 08:00 100 97 64 05/25/24 07:42 98 F 75 16 111/61 05/25/24 04:00 64 18 128/72 05/25/24 02:00 63 18 98/62 05/25/24 00:00 68 18 101/60 05/24/24 23:00 81 18 123/68 05/24/24 22:00 80 18 113/60 05/24/24 20:55 87 18 132/73 05/24/24 20:32 98.8 F 88 18 132/66 BP BP BP Pulse Ox 05/25/24 10:58 99 05/25/24 09:00 98 05/25/24 08:00 122/79 124/76 144/75 01/24/25 07:42 98 05/25/24 04:00 98 05/25/24 02:00 100 05/25/24 00:00 98 05/24/24 23:00 98 05/24/24 22:00 98 05/24/24 20:55 99 05/24/24 20:32 100 Intake and Output 05/24/24 05/25/24 05/25/24 22:59 06:59 14:59 Other: Weight 71.668 kg 71.668 kg Results 05/25/24 02:53 05/25/24 02:53 Cardiac Enzymes 05/24/24 05/24/24 05/25/24 Range/Units 20:43 20:43 02:53 AST 34 (14-36) U/L Troponin I <0.012 <0.012 (0.000-0.034) ng/mL 05/25/24 Range/Units 02:53 AST 33 (14-36) U/L Troponin I (0.000-0.034) ng/mL Coagulation 05/24/24 Range/Units 20:43 PT 10.8 (10.0-12.5) sec APTT 24.3 (22.0-30.0) sec Lipids 05/24/24 Range/Units 20:43 Triglycerides 121.00 (0.00-149.00) mg/dL Cholesterol 240.00 H (0.00-200.00) mg/dL HDL Cholesterol 75.20 H (40.00-60.00) mg/dL Cholesterol/HDL Ratio 3.19 Ratio CBC 05/24/24 05/25/24 Range/Units 20:43 02:53 WBC 10.1 8.7 (3.8-10.6) k/uL RBC 4.92 4.65 (3.80-5.40) m/uL Hgb 14.6 14.0 (11.4-16.0) gm/dL Hct 43.5 41.2 (34.0-46.0) % Plt Count 390 340 (150-450) k/uL Comprehensive Metabolic Panel 05/24/24 05/25/24 Range/Units 20:43 02:53 Sodium 137 137 (137-145) mmol/L Potassium 3.6 4.2 (3.5-5.1) mmol/L Chloride 100 106 (98-107) mmol/L Carbon Dioxide 27 23 (22-30) mmol/L BUN 17 14 (7-17) mg/dL Creatinine 0.71 0.60 (0.52-1.04) mg/dL Glucose 120 H 103 H (74-99) mg/dL Calcium 9.9 9.2 (8.4-10.2) mg/dL AST 34 33 (14-36) U/L ALT 17 16 (4-34) U/L Alkaline Phosphatase 65 69 (38-126) U/L Total Protein 7.1 6.4 (6.3-8.2) g/dL Albumin 4.5 3.7 (3.5-5.0) g/dL Current Medications Generic Name Dose Route Start Last Admin Trade Name Freq PRN Reason Stop Dose Admin Acetaminophen 650 mg 05/24/24 22:12 Acetaminophen Tab 325 Mg Tab PO Q6HR PRN Mild Pain or Fever > 100.5 Aspirin 81 mg 05/25/24 09:00 05/25/24 07:35 Aspirin 81 Mg PO 81 mg DAILY JUAN M Administration Atorvastatin Calcium 10 mg 05/25/24 21:00 Atorvastatin 10 Mg Tab PO HS JUAN M Clonazepam 0.5 mg 05/25/24 03:08 Clonazepam 0.5 Mg Tab PO BID PRN Anxiety Famotidine 20 mg 05/25/24 09:00 05/25/24 07:35 Famotidine 20 Mg Tab PO 20 mg DAILY JUAN M Administration Heparin Sodium (Porcine) 5,000 unit 05/25/24 00:00 05/25/24 07:37 Heparin Sodium,Porcine 5,000 Unit/Ml 1 Ml Vial SQ 5,000 unit Q8HR JUAN M Administration Hydroxyzine HCl 25 mg 05/25/24 21:00 Hydroxyzine Hcl 25 Mg Tab PO HS JUAN M Sodium Chloride 1,000 mls @ 75 mls/hr 05/24/24 22:15 05/24/24 22:48 Saline 0.9% IV 75 mls/hr .[id number] JUAN M Administration Losartan Potassium 25 mg 05/25/24 09:00 05/25/24 07:35 Losartan 25 Mg Tab PO 25 mg BID JUAN M Administration Naloxone HCl 0.2 mg 05/24/24 22:12 Naloxone 0.4 Mg/Ml 1 Ml Vial IV Q2M PRN Opioid Reversal Nitroglycerin 0.5 inch 05/25/24 05:00 05/25/24 06:30 Nitroglycerin Oint 1 Inch/Gm Packet TOPICAL Not Given Q8H JUAN M Sertraline HCl 100 mg 05/25/24 09:00 05/25/24 07:35 Sertraline 100 Mg Tab PO 100 mg DAILY JUAN M Administration Intake and Output 05/24/24 05/25/24 05/25/24 22:59 06:59 14:59 Other: Weight 71.668 kg 71.668 kg Patient Weight 05/26/24 06:59 Weight 71.668 kg 05/25/24 02:53 05/25/24 02:53
[2024-05-25] MEDS: ATORVASTATIN 80 MG TAB PO STA (12:50)
[2024-05-25] MEDS: ASPIRIN 325 MG TAB PO STA (12:50)
[2024-05-25] MEDS: fentaNYL (PF) 50 MCG/ML 2 ML AMP IVP ONE (15:00)
[2024-05-25] MEDS: MIDAZOLAM 2 MG/2 ML VIAL IVP ONE ×2 (15:01→15:06)
[2024-05-25] MEDS: SODIUM CHLORIDE 0.9% 500 ML 500 ML IV ONE (15:01)
[2024-05-25] MEDS: LIDOCAINE 1% INJ 10MG/ML (20 ML MDV) SQ ONE (15:04)
[2024-05-25] MEDS: VERAPAMIL SYRINGE (5 MG/10 ML) INTRAARTER ONE (15:05)
[2024-05-25] MEDS: HEPARIN SODIUM,PORCINE 10,000 UNIT in SODIUM CHLORIDE 0.9% 1,000 ML IRRIGATION PRN (15:07)
[2024-05-25] MEDS: HEPARIN SODIUM,PORCINE (1 ML) 2,500 UNIT in SODIUM CHLORIDE 0.9% 250 ML IRRIGATION PRN (15:07)
[2024-05-25] MEDS: HEPARIN SODIUM 1,000 UN/ML (10ML VL) IVP ONE ×2 (15:09→15:14)
[2024-05-25] MEDS: IOPAMIDOL-370 100ML BTL INJ ONE (15:22)
--- NOTE | 2024-05-25 15:24 | P.CARDCATH ---
Description of Procedure: PROCEDURES PERFORMED: Left heart catheterization, bilateral coronary angiography, ultrasound guided arterial access INDICATION: chest pain concerning for unstable angina CONSENT:I have discussed the risks, benefits and alternative therapies for the above-mentioned procedure and for both sedation/analgesia as well as necessary blood product administration, if indicated, as they pertain to this patient. The patient has indicated understanding and acceptance of the risks and procedures discussed. PROCEDURE: After the risks, benefits and alternatives of the above mentioned procedure explained in detail with the patient, informed consent was obtained. Patient was taken to the catheterization lab and prepped and draped in usual fashion. Ultrasound guidance was used to assess for arterial access. 1% lidocaine was used to anesthetize the right radial artery. A 6-Polish sheath was placed in the right radial artery using modified Seldinger technique and ultrasound guidance. Left coronary angiography was performed with a 5-Polish JL 3.5 catheter and right coronary angiography was performed with a 5-Polish FR5 catheter in various views. A 5-Polish FR5 catheter was inserted into the left ventricle and pressure measurements were obtained. The right radial sheath was removed and a TR band was placed with hemostasis achieved. The patient tolerated the procedure well. Patient was transported back to the post catheterization holding area in stable condition. Conscious Sedation: Patient was monitored under the direct supervision of myself for conscious sedation using Versed and fentanyl for a total duration of 16 minutes HEMODYNAMICS: Ao: 154/81 LV: 151/5, LVEDP 18 SELECTIVE CORONARY ARTERIOGRAPHY: LEFT MAIN: The left main is a large caliber vessel which bifurcates into the LAD and circumflex. There is no significant stenosis. LEFT ANTERIOR DESCENDING CORONARY ARTERY: LAD is a large caliber vessel which wraps around to the apex. There is no significant stenosis. LEFT CIRCUMFLEX CORONARY ARTERY: Left circumflex is a moderate caliber vessel without significant stenosis. RIGHT CORONARY ARTERY: The right coronary artery is a large caliber vessel which gives off a PDA and PLV branch and is the dominant vessel. There is no significant stenosis. FINAL IMPRESSION: 1. Normal coronary arteries as described above. 2. High normal left sided filling pressures PLAN: 1. Aggressive risk factor modification per most recent ACC/AHA guidelines. 2. Follow-up in the office in 1-2 weeks.
--- NOTE | 2024-05-25 16:07 | P.PN ---
Subjective Progress Note Date: 05/25/24 Hospital course: Patient is a 48-year-old female with medical history of hypertension and anxiety presenting to the ER with chief complaint of chest pain and palpitations. Patient says she had an herself throughout the day today, but the onset of the chest pain was at rest. She describes it as centralized without radiation and also noted some tightness in her jaw and associated nausea and lightheadedness. Patient states she felt palpitations as well and her heart rate was in the 140s. She does not endorse a history of panic attacks, but she states this felt different. She took a Klonopin 0.5 mg, but did not relieve symptoms. Patient called EMS and she was given 324 mg of aspirin and 2 nitro which she feels resolved the pain. Patient does endorse some difficulty equilibrating with positional changes. She denies any history of strokes, seizures, blood thinner use. She reports smoking half to 1 pack a day, occasional alcohol use, no caffeine use. Patient denies any history of thyroid disorders or diabetes. She denies any fevers, chills, diarrhea, vomiting, abdominal pain, urinary or bowel complaints. Patient states her home medications are losartan 25 twice daily, lovastatin 20 mg(reported myopathies with other statins), sertraline 100 mg, hydroxyzine 25 mg, famotidine 20 mg daily, and Klonopin 0.5 mg as needed. denies any history of cardiac disease, no recent travel or hospital stay , no history of blood clots, patient has a negative stress test in Mar 2024 positive family history of premature CAD mom at 49 of heart attack, dad had a CABG early on in his life Review of systems: Pertinent positives and negatives as discussed in HPI, a complete review of systems was performed and all other systems are negative. Subjective: Patient seen and examined at bedside. No acute events overnight. States her chest pain has improved. Denies any headache, lightheadedness Pertinent positives and negatives as discussed above, a complete review of systems was performed and all other systems are negative. Vitals: Signs Reviewed Physical Exam: General: nontoxic, no distress, appears at stated age Derm: warm, dry, intact Head: atraumatic, normocephalic, symmetric Eyes: EOMI, anicteric sclera Mouth: no lip lesion, mucus membranes moist Cardiovascular: S1 S2 reg, no murmur, rubs, or gallops Lungs: CTA bilateral, no rhonchi, no rales, no accessory muscle use Abdominal: soft, non-tender to palpataion, no appreciable organomegaly Extremities: no gross muscle atrophy, no edema, no contractures Neuro: Alert, Oriented, CNII-XII grossly intact, gait normal Psych: well appearing, appropriate affect Assessment/Plan: Patient is a 48-year-old female with past medical history of hypertension and anxiety who presented to ER with chest pain and palpitations. Case was discussed with the ED doc and patient will be admitted to internal medicine service for further evaluation. Labs on admission show WBC 10.1, hemoglobin 14.6, MCV 88.3, platelets 390. PT 10.8, INR 1, PTT 24.3. Sodium 137, potassium 3.6, chloride 100, bicarb 27, BUN 17, creatinine 0.71, glucose 120. Calcium 9.9 magnesium 2.1. LFTs unremarkable. Troponin negative. Labs reviewed and unremarkable. Active: Atypical chest pain with palpitations POTS versus panic attack EKG independently interpreted as sinus rhythm, ventricular rate 77 bpm, QTc of 396 ms with no acute ST changes suggestive of ischemia CXR shows no acute pulmonary process Trend troponin every 3 hours x 2 Follow-up echo Aspirin 81 mg po daily Continue lovastatin 20 mg personnel monitor Lipid panel A1C pending Nitro prn for chest pain Obtain orthostatic vitals signs Spoke with cardiology, wants to do a catheterization, can be discharged if no findings Chronic: Hypertension Continue losartan 25 mg twice daily Anxiety/depression with history of panic attacks Continue sertraline 100 mg Continue Klonopin 0.5 mg as needed Insomnia Continue hydroxyzine 25 mg as needed GERD Continue famotidine 20 mg daily F: 0.9% NS at 75 mL/h E: Replete as needed N: Heart healthy A: As tolerated DVT prophylaxis: Heparin 5000 units subcu every 8 hours Code status: Full code Anticipated discharge place: Pending clinical course Anticipated discharge time: Pending clinical course Mike Maza MD PGY-1 IM Dictation was produced using [employer] dictation software. please excuse any grammatical, word or spelling errors. I saw and evaluated the patient during the stern and critical portions of this encounter, and discussed the case in detail with the resident author of this note, I agree with the Assessment and Plan, and my changes, if any, are highlighted in blue. Objective - Vital Signs Vital signs: Vital Signs Temp 98 F 05/25/24 07:42 Pulse 75 05/25/24 07:42 Resp 16 05/25/24 07:42 BP 111/61 05/25/24 07:42 Pulse Ox 98 05/25/24 07:42 FiO2 Intake & Output 05/24/24 05/25/24 05/25/24 18:59 06:59 18:59 Weight 71.668 kg - Labs CBC & Chem 7: 05/25/24 02:53 05/25/24 02:53 Labs: Abnormal Lab Results - Last 24 Hours (Table) 05/24/24 05/25/24 Range/Units 20:43 02:53 Glucose 120 H 103 H (74-99) mg/dL
--- NOTE | 2024-05-25 16:26 | CA ---
Transthoracic Echo Report Name: Maria Antonia Taylor Age: 48 Gender: F : 1975 Exam Date: 05/25/2024 08:58 Exam Location: [facility] Ht (in): 62 Wt (lb): 158 Ordering Physician: Porsha Girard MD Attending/Referring Phys: Service Developer Nadiya Bates RDCS Procedure CPT: Indications: LV function Cardiac Hx: Technical Quality: Good Contrast 1: Total Dose (mL): Contrast 2: Total Dose (mL): MEASUREMENTS (Male / Female) Normal Values 2D ECHO LV Diastolic Diameter PLAX 4.7 cm 4.2 - 5.9 / 3.9 - 5.3 cm LV Systolic Diameter PLAX 3.2 cm IVS Diastolic Thickness 0.6 cm 0.6 - 1.0 / 0.6 - 0.9 cm LVPW Diastolic Thickness 0.7 cm 0.6 - 1.0 / 0.6 - 0.9 cm LV Relative Wall Thickness 0.3 LVOT Diameter 2.0 cm LV Diastolic Volume MOD BP 93.1 cm??? 67 - 155 / 56 - 104 cm??? LV Systolic Volume MOD BP 37.0 cm??? 22 - 58 / 19 - 49 cm??? LV Ejection Fraction MOD BP 60.2 % >= 55 % LV Cardiac Index MOD BP 1937.9 cm???/min???m??? LV Diastolic Volume MOD 4C 88.0 cm??? LV Systolic Volume MOD 4C 33.1 cm??? LV Ejection Fraction MOD 4C 62.4 % LV Cardiac Index MOD 4C 1899.4 cm???/min???m??? LV Diastolic Length 4C 8.0 cm LV Systolic Length 4C 7.1 cm LV Diastolic Volume MOD 2C 95.1 cm??? LV Systolic Volume MOD 2C 38.8 cm??? LV Ejection Fraction MOD 2C 59.2 % LV Cardiac Index MOD 2C 1945.7 cm???/min???m??? LV Diastolic Length 2C 8.3 cm LV Systolic Length 2C 6.6 cm LA Volume 48.8 cm??? 18 - 58 / 22 - 52 cm??? LA Volume Index 27.2 cm???/m??? 16 - 28 cm???/m??? DOPPLER AV Peak Velocity 125.4 cm/s AV Peak Gradient 6.3 mmHg AV Mean Velocity 83.2 cm/s AV Mean Gradient 3.1 mmHg AV Velocity Time Integral 29.7 cm LVOT Peak Velocity 88.4 cm/s LVOT Peak Gradient 3.1 mmHg LVOT Velocity Time Integral 21.0 cm LVOT Stroke Volume 64.9 cm??? LVOT Stroke Volume Index 37.5 ml/m??? LVOT Cardiac Index 2244.2 cm???/min???m??? AV Area Cont Eq vti 2.2 cm??? AV Area Cont Eq pk 2.2 cm??? MV Area PHT 5.4 cm??? Mitral E Point Velocity 72.0 cm/s Mitral A Point Velocity 45.1 cm/s Mitral E to A Ratio 1.6 MV Deceleration Time 141.0 ms PV Peak Velocity 77.9 cm/s PV Peak Gradient 2.4 mmHg FINDINGS Left Ventricle Left ventricular ejection fraction is estimated at 60 %. Left ventricular cavity size normal. Left ventricular wall thickness normal. No obvious regional wall motion abnormalities. Right Ventricle Normal right ventricular size and function. Unable to estimate the right ventricular systolic pressure. Right Atrium Normal right atrial size. Left Atrium Normal left atrial size. Mitral Valve Structurally normal mitral valve. No mitral stenosis, regurgitation or prolapse. Aortic Valve Trileaflet aortic valve. No aortic valve stenosis or regurgitation. Tricuspid Valve Structurally normal tricuspid valve. No tricuspid stenosis. No tricuspid regurgitation. Pulmonic Valve Structurally normal pulmonic valve. No pulmonic stenosis. Trace pulmonic regurgitation. Pericardium No pericardial effusion. Aorta Normal size aortic root and proximal ascending aorta. CONCLUSIONS Left ventricular ejection fraction 60% No mitral regurgitation No tricuspid regurgitation No pericardial effusion Previewed by: Dr. Avinash Leo DO (Electronically Signed) Final Date: 25 May 2024 16:26
--- NOTE | 2024-05-25 18:02 | P.DS ---
Providers Date of admission: 05/24/24 22:14 Discharge Diagnosis: Atypical chest pain with palpitations Hypertension Anxiety/depression with history of panic attacks Insomnia GERD Hospital Course: Patient is a 48-year-old female with medical history of hypertension and anxiety presenting to the ER with chief complaint of chest pain and palpitations. Patient says she had an herself throughout the day today, but the onset of the chest pain was at rest. She describes it as centralized without radiation and also noted some tightness in her jaw and associated nausea and lightheadedness. Patient states she felt palpitations as well and her heart rate was in the 140s. She does not endorse a history of panic attacks, but she states this felt different. She took a Klonopin 0.5 mg, but did not relieve symptoms. Patient called EMS and she was given 324 mg of aspirin and 2 nitro which she feels resolved the pain. Patient does endorse some difficulty equilibrating with positional changes. She denies any history of strokes, seizures, blood thinner use. She reports smoking half to 1 pack a day, occasional alcohol use, no caffeine use. Patient denies any history of thyroid disorders or diabetes. She denies any fevers, chills, diarrhea, vomiting, abdominal pain, urinary or bowel complaints. Patient states her home medications are losartan 25 twice daily, lovastatin 20 mg(reported myopathies with other statins), sertraline 100 mg, hydroxyzine 25 mg, famotidine 20 mg daily, and Klonopin 0.5 mg as needed. Denies any history of cardiac disease, no recent travel or hospital stay , no history of blood clots, patient has a negative stress test in Mar 2024. Positive family history of premature CAD mom at 49 of heart attack, dad had a CABG early on in his life. Labs in the ED consisted of troponin <0.012 x 2, remaining labs were unremarkable. EKG independently interpreted displaying normal sinus rhythm, vent rate 77 bpm, QTc 396 MS CXR independently interpreted displaying no acute cardiopulmonary process ED vitals T 98 F, TN 75, RR 16, BP 111/61, O2 sat 98% on room air ED documentation was reviewed. Patient was admitted to internal medicine service for further evaluation for chest pain. Cardiology was consulted. Echocardiogram showed EF of 60%. D- dimer was within normal limit. Lipid panel showing cholesterol 240, LDL 140, HDL 75, triglycerides 121. A1c 5.1. During admission patient was seen by derrick worker and decided to undergo heart catheterization. Heart cath showed normal coronary arteries and high normal left-sided filling pressures. She is being discharged with aspirin. She is to follow-up with her PCP and cardiology. She is being discharged home. Vital signs reviewed and stable. Physical examination: Vital signs reviewed General: non toxic, no distress, appears at stated age, normal weight Derm: no unusual rashes/lesions, warm Head: atraumatic, normocephalic, symmetric Eyes: EOMI, anicteric sclera, pupils equal round reactive to light ENT: Nose and ears atraumatic Neck: No cervical lymphadenopathy, trachea midline, supple Mouth: no lip lesion, mucus membranes moist Cardiovascular: S1S2 reg, no murmur, positive dorsalis pedis pulse bilateral, no edema Lungs: CTA bilateral, no rhonchi, no rales, no accessory muscle use Abdominal: soft, nontender to palpation, no guarding Ext: muscle strength 5 out of 5 in all 4 extremities grossly, no gross muscle atrophy Neuro: CN II-XI grossly intact, no gross focal neuro deficits Psych: Alert, oriented to person, place, and time A total of greater than 30 minutes of time were spent preparing this complex discharge summary. Patient was discharge on May 25, 2024 at 17:29. Mike Maza MD PGY-1 IM Dictation was produced using [employer] dictation software. please excuse any grammatical, word or spelling errors. Expected date of discharge: 05/25/24 Attending physician: Meggan Cruz MD Consults: 05/24/24 22:12 Consult Physician Routine Consulting Provider: [facility] Consult Reason/Comments: chest pain Do you want consulting provider notified?: Yes Primary care physician: Physician Nonstaff Hospital Course: I saw and evaluated the patient during the stern and critical portions of this encounter, and discussed the case in detail with the resident author of this note, I agree with the Assessment and Plan, and my changes, if any, are highlighted in blue. Patient Condition at Discharge: Stable Plan - Discharge Summary Discharge Rx Participant: No New Discharge Prescriptions: New Aspirin 81 mg PO DAILY #90 tab Continue Cholecalciferol [Vitamin D3 (125 Mcg = 5000 Iu)] 125 mcg PO DAILY hydrOXYzine HCL [Atarax] 25 mg PO HS Famotidine [Pepcid] 20 mg PO DAILY Cetirizine HCl [Zyrtec] 10 mg PO DAILY Lovastatin [Mevacor] 10 mg PO HS Multivitamins, Thera [Multivitamin (formulary)] 1 tab PO ONCE Losartan [Cozaar] 25 mg PO BID Sertraline [Zoloft] 100 mg PO DAILY Biotin 5 mg PO DAILY Discharge Medication List Multivitamins, Thera [Multivitamin (formulary)] 1 tab PO ONCE 10/31/20 [History] Losartan [Cozaar] 25 mg PO BID 10/05/21 [History] Cholecalciferol [Vitamin D3 (125 Mcg = 5000 Iu)] 125 mcg PO DAILY 03/01/22 [History] Aspirin 81 mg PO DAILY #90 tab 05/25/24 [Rx] Biotin 5 mg PO DAILY 05/25/24 [History] Cetirizine HCl [Zyrtec] 10 mg PO DAILY 05/25/24 [History] Famotidine [Pepcid] 20 mg PO DAILY 05/25/24 [History] Lovastatin [Mevacor] 10 mg PO HS 05/25/24 [History] Sertraline [Zoloft] 100 mg PO DAILY 05/25/24 [History] hydrOXYzine HCL [Atarax] 25 mg PO HS 05/25/24 [History] Follow up Appointment(s)/Referral(s): Avinash Leo DO [STAFF PHYSICIAN] - 1 Week Nonstaff,Physician [Primary Care Provider] - 1-2 days Activity/Diet/Wound Care/Special Instructions: Please see PCP and Cardiology. Discharge Disposition: HOME SELF-CARE
[2024-05-25 19:52] VITALS: TEMP 97.9
[2024-05-25 19:56] VITALS: RESP 16
[2024-05-25 20:00] VITALS: BP 134/74
[2024-05-25 20:01] VITALS: PULSE 89
[2024-05-25] MEDS ORDERED: ATORVASTATIN 10 MG TAB PO SCH (21:00)
[2024-05-25] MEDS ORDERED: ATORVASTATIN 20 MG TAB PO SCH (21:00)
[2024-05-25] MEDS ORDERED: hydrOXYzine HCL 25 MG TAB PO SCH (21:00)
== END 2024-05-25 20:30 | disposition home or self-care (01) ==
LOC: EC 20:28 → 6NMEDSUR 22:14
PROVIDERS: ADMIT Internal Medicine; ATTEND Internal Medicine
DX: R07.89 Other chest pain (principal); R00.2 Palpitations; I10 Essential (primary) hypertension; F41.0 Panic disorder [episodic paroxysmal anxiety]; F32.A Depression, unspecified; G47.00 Insomnia, unspecified; K21.9 Gastro-esophageal reflux disease without esophagitis; E78.5 Hyperlipidemia, unspecified; G47.30 Sleep apnea, unspecified; F17.200 Nicotine dependence, unspecified, uncomplicated; Z79.82 Long term (current) use of aspirin; Z79.899 Other long term (current) drug therapy; Z88.2 Allergy status to sulfonamides; Z82.49 Family history of ischemic heart disease and other diseases of the circulatory system
CPT/HCPCS: 96372 ×2; 99285; 36415; 93005; 93306; 93458; 85379; 80061; 80053 ×2; 83735; 84484 ×2; 85025 ×2; 85610; 85730; 83036; 71046; G0378 ×2; C1769 ×2; C1894; J2250; J1644 ×4; J2003; J3010; Q9967

== ENCOUNTER → 2024-09-17 | Outpatient (CLI) | payer OTHER ==
--- NOTE | 2024-09-17 07:38 | MM ---
Reason for Exam: Screening (asymptomatic). Last screening mammogram was performed 12 month(s) ago. Patient History: Menarche at age 13. First Full-Term at age 25. Left ovary removed at age 38. Right ovary removed at age 38. Hysterectomy at age 38. Postmenopausal. Estrogen for 6 years from age 38 until age 45. Risk Values: Susanna 5 year model risk: 1.0%. NCI Lifetime model risk: 10.2%. Prior Study Comparison: 09/03/2021 Bilateral Diagnostic Mammogram, [facility]. 09/10/2022 Bilateral MG 3D screening mammo w/cad, [facility]. 09/16/2023 Bilateral MG 3D screening mammo w/cad, [facility]. Tissue Density: There are scattered areas of fibroglandular density. Findings: Analyzed By CAD. Right breast: There is no suspicious group of microcalcifications or new suspicious mass. Left breast: There is no suspicious group of microcalcifications or new suspicious mass. Overall Assessment: Negative, BI-RAD 1 Management: Screening Mammogram of both breasts in [address] [facility] will attempt to contact patient to return for supplemental views and ultrasound if indicated. Patient should continue monthly self-breast exams. A clinical breast exam by your physician is recommended on an annual basis. This exam should not preclude additional follow-up of suspicious palpable abnormalities. Note on Susanna scores and lifetime risk: 1. A Susanna score greater than 3% is considered moderate risk. If this is the case, consider specialist referral to assess eligibility for a risk reducing agent. 2. If overall lifetime risk for the development of breast cancer is 20% or higher, the patient may qualify for future screening with alternating mammogram and breast MRI. [facility], , 09/17/2024 7:35 AM. Electronically signed and approved by: Kobi Rosas DO
== END | disposition home or self-care (01) ==
LOC: RADMAMWWP 07:01
PROVIDERS: ATTEND Family Medicine
DX: Z12.31 Encounter for screening mammogram for malignant neoplasm of breast (principal); R92.323 Mammographic fibroglandular density, bilateral breasts; Z78.0 Asymptomatic menopausal state
CPT/HCPCS: 77063; 77067